=== PATIENT | female | born 1960 | race Caucasian/White ===

== ENCOUNTER 2023-12-05 05:35 | Inpatient (IN) | payer MEDICARE, SELFPAY ==
[2023-12-05] VITALS (9 sets, daily range): BP systolic 90–182; BP diastolic 53–107; PULSE 95–120; RESP 18–26; TEMP 36.2–36.8; O2SAT 93–100; BMI 26.4
--- NOTE | ~2023-12-05 | CT_ITS ---
EXAMINATION: CT ABDOMEN AND PELVIS WITHOUT CONTRAST CLINICAL INFORMATION: Vomiting. Abdominal discomfort. COMPARISON: None available. TECHNIQUE: Multidetector volumetric imaging was performed from the superior aspect of the liver through the pubic symphysis. Sagittal and coronal reformatted images were obtained on the technologist's workstation. Today's examination is limited secondary to motion artifact. This CT examination was performed using dose optimization techniques as appropriate, variously including the following: *Automated exposure control *Adjustment of mA and/or kV according to patient size (this includes techniques or standardized protocols for targeted exams where dose is matched to indication/reason for exam; i.e. extremities or head) *Use of iterative reconstruction technique DLP: 406 mGy-cm FINDINGS: Evaluation of lung bases is limited given respiratory motion artifact, however, atelectatic changes are appreciated. The liver is normal in size. The gallbladder is normal in appearance. The pancreas, spleen and adrenal glands are unremarkable. Symmetrically sized kidneys. No renal calculi or hydronephrosis of either kidney. Bilateral perinephric stranding, nonspecific. Small hiatal hernia. Normal caliber loops of small and large bowel. Colonic diverticulosis without CT evidence to suggest active diverticulitis. Normal caliber abdominal aorta demonstrating mild atherosclerotic disease. No retroperitoneal lymphadenopathy. The bladder is normal in appearance. Unremarkable CT appearance of the uterus. No gross free pelvic fluid. No inguinal lymphadenopathy. Diffuse osteopenia. Degenerative changes of the spine. Subcentimeter sclerotic focus within the left ilium, nonspecific but statistically a bone island. CT/CT abdomen pelvis wo IV con IMPRESSION: 1. No CT evidence for acute abnormality within the abdomen or pelvis. 2. Colonic diverticulosis without CT evidence to suggest active diverticulitis. Fleischner guidelines were followed.
--- NOTE | 2023-12-05 05:45 | ECG_ITS ---
Test Reason : ABD PAIN Blood Pressure : / mmHG Vent. Rate : 108 BPM Atrial Rate : 108 BPM P-R Int : 118 ms QRS Dur : 076 ms QT Int : 426 ms P-R-T Axes : 061 062 229 degrees QTc Int : 570 ms Sinus tachycardia Marked T wave abnormality, consider anterolateral ischemia Prolonged QT Abnormal ECG No previous ECGs available Referred By: Emily Angel Electronically Signed By:Giuseppe Parker
[2023-12-05] MEDS: 0.9 % Sodium Chloride 1,000 ML 999 ML IVCONT (05:58)
[2023-12-05] MEDS: ondansetron HCL 4 MG/2 ML VIAL IVPUSH (05:58)
[2023-12-05 06:01] LABS: Basophils Absolute Auto 0.1 X10*3/uL (0.0-0.2); Basophils Percent Auto 0.4 % (0-2); Hematocrit 31.7 % (37.0-47.0); Hemoglobin 11.1 g/dl (12.0-16.0); Imm Gran Abs Auto 0.12 X10*3/uL (0.00-0.03); Imm Gran Pct Auto 0.6 % (0.0-0.4); Lymphocytes Absolute Auto 1.6 X10*3/uL (1.2-4.9); Lymphocytes Percent Auto 7.4 % (20-40); MANUAL DIFF FLAG SCAN; Mean Corpuscular Hemoglobin 32.7 pg (27.0-33.0); Mean Corpuscular Volume 93.5 fL (80.0-98.0); Mean Platelet Volume 9.4 fL (9.4-12.3); Monocytes Absolute Auto 1.6 X10*3/uL (0.1-1.2); Monocytes Percent Auto 7.4 % (2-11); Neutrophils Absolute Auto 17.9 x10*3/uL (2.0-8.3); Neutrophils Percent Auto 84.2 % (45-73); Platelet Count 337 X10*3/uL (160-400); Red Blood Count 3.39 X10*6/uL (4.20-5.50); SCAN SMEAR FLAG 1; White Blood Count 21.2 X10*3/uL (4.8-10.8)
[2023-12-05 06:16] LABS: Alanine Aminotransferase 15 U/L (0-31); Albumin Level 4.4 g/dL (3.5-5.0); Alkaline Phosphatase 65 U/L (39-117); Anion Gap 21 (12-20); Aspartate Amino Transferase 33 U/L (5-31); Bilirubin Direct 0.3 mg/dL (0.0-0.5); Bilirubin Total 0.7 mg/dL (0.0-1.0); Blood Urea Nitrogen 45 mg/dL (9-16); Calcium 10.5 mg/dL (8.4-10.2); Carbon Dioxide 18 mmol/L (22-29); Chloride 95 mmol/L (96-108); Creatinine Clr Calc Pharmacy 17.5; Estimated Glomerular Filt Rate 18; Ethanol < 10 mg/dL; Glucose Random 142 mg/dL (60-115); Potassium 3.4 mmol/L (3.3-5.1); Sodium 131 mmol/L (135-145); Total Protein 7.8 g/dL (6.5-8.0)
[2023-12-05 06:17] LABS: SLIDE REVIEW VERIFIED
[2023-12-05] MEDS: LORazepam 2 MG/ML VIAL IVPUSH (06:26)
[2023-12-05] MEDS: Magnesium Sulfate/H2O 2 GM/50 ML PIGGYBACK IV (06:29)
--- NOTE | 2023-12-05 06:30 | ED_ITS ---
HPI - General Adult General Chief complaint: Nausea/Vomiting/Diarrhea Stated complaint: vomiting Time Seen by Provider: 12/05/23 06:25 Source: patient Mode of arrival: ambulatory Limitations: no limitations History of Present Illness HPI narrative: Patient comes to the emergency room complaining of alcohol withdrawal, nausea and vomiting. Patient states that her last drink was 4 days ago. Patient states that she usually drinks 2 bottles of wine at dinner time for the last 20 years. Patient states that for the last 4 days she has been vomiting, couple episodes of diarrhea, no significant abdominal pain. Patient states that yesterday around 22:00, she had some chest pressure which resolved by midnight. At this time, patient does not have chest pain or chest pressure. Patient denies abdominal pain. Patient complaining of feeling jittery, withdrawing from alcohol. Related Data Allergies Allergy/AdvReac Type Severity Reaction Status Date / Time amoxicillin [AMOXICILLIN] Allergy Unknown RASH Verified 12/05/23 06:40 doxycycline [DOXYCYCLINE] Allergy Unknown NAUSEA Verified 12/05/23 06:40 /VOMITING penicillin V Allergy Unknown facial Verified 12/05/23 06:40 edema Sulfa (Sulfonamide Allergy Unknown rash Verified 12/05/23 06:40 Antibiotics) sulfamethoxazole Allergy Unknown FACE Verified 12/05/23 06:40 [From BACTRIM] SWELLING trimethoprim [From BACTRIM] Allergy Unknown FACE Verified 12/05/23 06:40 SWELLING minocycline [Minocin] AdvReac Unknown GI Verified 12/05/23 06:40 upset/nausea Doxycycline Hyclate AdvReac Unknown GI Uncoded 04/13/13 00:00 upset/nausea Review of Systems 2 Review of Systems: Constitutional : No Weight loss, No Fever, No Chills, No Night Sweats, No Fatigue, No Malaise, complaining of feeling jittery ENT/Mouth : No Hearing loss, No Ear Pain, No Nasal Congestion, No Sinus Pain, No Hoarseness, No sore throat, No Rhinorrhea, No Swallowing Difficulty Eyes: No Eye Pain, No Swelling, No Redness, No Foreign Body, No Discharge, No Vision Changes Cardiovascular : No Chest Pain, No SOB, No Dyspnea on Exertion, No Orthopnea, No Edema, No Palpitations Respiratory : No Cough, No Sputum, No Wheezing, No Smoke Exposure, No Dyspnea Gastrointestinal : Complaining of nausea vomiting and diarrhea No Constipation, No abdominal Pain, No Hematochezia, No Melena Genitourinary : no irregular bleeding, No Dysuria, No Urinary Frequency, No Hematuria, No Urinary Incontinence, No Urgency, No Flank Pain, No Urinary Flow Changes, No Hesitancy Musculoskeletal : No joint pain, No Myalgias, No Joint Swelling Skin : No Skin Lesions, No rash Neuro : No Weakness, No Numbness, No Paresthesias, No Loss of Consciousness, No Dizziness, No Headache Psych : No Anxiety/Panic, No Depression, No SI/HI/AH/VH, complaining of alcohol withdrawal, last drink 4 days ago Heme/Lymph: No Bruising, No Bleeding,No Lymphadenopathy Endocrine : No Polyuria, No Polydipsia, No Temperature Intolerance [facility] Past Medical History Medical History Marijuana use Hypothyroidism Hyperlipidemia Hypertension Alcohol abuse Social History Social History Advance Directives: No Advance Directives Information Provided: Yes Physical Exam ED Vital Signs: Vital Signs - 24 hr 12/05/23 05:45 12/05/23 06:34 Temperature 98 F 98.2 F Pulse Rate 102 H 116 H Respiratory Rate 24 H 20 Blood Pressure 182/103 H 180/100 H Pulse Oximetry 100 93 Oxygen Delivery Method Room Air Room Air BMI result Body Mass Index 26.4 Const Other: Appearance: Alert. Oriented X3. No acute distress. Jittery, shaky, sober, coherent Eyes: Pupils equal, round and reactive to light. ENT: Pharynx normal. Neck: Normal inspection. Neck supple. No lymph nodes noted. No crepitus CVS: Normal heart rate and rhythm. Pulses normal. Normal S1 and S2 Respiratory: No respiratory distress. Breath sounds normal. No Wheezing. No rales Abdomen: Soft and nontender. No rigidity. No distention. Skin: Skin warm and dry. Normal skin color. Normal skin turgor. Extremities: No lower extremity edema. No Lacerations. No Rash Neuro: Oriented X 3. No motor deficit. No sensory deficit. Moving all extremities. No slurred speech. CN 2 through 12 grossly intact Psych: calm, cooperative, normal affect Course Course Course Narrative: -all of patient's labs pending -patient empirically being treated with IV fluids, Zofran, Ativan IV Medications Administered Generic Name Dose Route Start Last Admin Trade Name Freq PRN Reason Stop Dose Admin Magnesium Sulfate 2 gm in 50 mls @ 25 mls/hr 12/05/23 06:25 12/05/23 06:53 Magnesium Sulfate/H2o IV 12/05/23 08:24 Infused ONCE ONE Infusion Discontinued Medications Generic Name Dose Route Start Last Admin Trade Name [place] PRN Reason Stop Dose Admin Sodium Chloride 1,000 mls @ 999 mls/hr 12/05/23 05:45 12/05/23 06:53 Ns IVCONT 12/05/23 06:45 Infused .Q1H1M ONE Infusion Lorazepam 2 mg 12/05/23 06:13 12/05/23 06:26 Lorazepam 2 Mg/Ml Vial IVPUSH 12/05/23 06:14 2 mg ONCE ONE Administration Ondansetron HCl 4 mg 12/05/23 05:45 12/05/23 05:58 Ondansetron Hcl 4 Mg/2 Ml Vial IVPUSH 12/05/23 05:46 4 mg ONCE ONE Administration Medical Decision Making Medical Decision Making [facility] Narrative: -my interpretation of EKG: Sinus tachycardia, heart rate 108,, suspicious ST segment elevation of 1 mm in V2, deep wave inversions in lead II, III, V3 V4 V5 V6, QTC prolonged 570 -patient received IV magnesium 2 g -my interpretation of labs: Patient's white blood cell count is 21.2, patient a be anemic, hemoglobin 11.1. Patient has hyponatremia sodium 131, anion gap open 21, BUN 45, creatinine 2.61. Troponin 6814 -I discussed the EKG changes and the troponin with Dr. Parker, we will go ahead and start heparin. Patient's blood pressure is stable, patient states that she does not have any chest pain, shortness of breath, abdominal pain or reflux symptoms. -patient states that she has no abdominal pain at all, just discomfort from nausea. Given her elevated white blood cell count, we will go ahead and order a CT scan of the abdomen -I discussed the patient with Dr. Brown and the medicine team, patient being admitted -of note, patient was given IV Ativan 2 mg to help with the withdrawal symptoms and to prevent seizures. Patient is somnolent, does wake up answer questions and falls back asleep Differential Diagnosis Differential Diagnoses: The differential diagnosis associated with the presentation includes (Alcohol withdrawal, NSTEMI, STEMI, gastroenteritis) Admission/Observation Consideration of admission/observation: Escalation of care including admission/observation considered Consult Healthcare Provider Management of the patient was discussed with: Hospitalist and Deck Mate Lab Data MDM Lab Attestation statement: I reviewed the patient's lab results. 12/05/23 05:54 12/05/23 05:54 Labs: Lab Results 12/05/23 Range/Units 05:54 WBC 21.2 H (4.8-10.8) X10*3/uL RBC 3.39 L (4.20-5.50) X10*6/uL Hgb 11.1 L (12.0-16.0) g/dl Hct 31.7 L (37.0-47.0) % MCV 93.5 (80.0-98.0) fL MCH 32.7 (27.0-33.0) pg MCHC 35.0 (31.0-35.0) g/dl RDW 13.0 (11.0-16.0) % Plt Count 337 (160-400) X10*3/uL MPV 9.4 (9.4-12.3) fL Immature Gran % (Auto) 0.6 H (0.0-0.4) % Neut % (Auto) 84.2 H (45-73) % Lymph % (Auto) 7.4 L (20-40) % [place] % (Auto) 7.4 (2-11) % Eos % (Auto) 0.0 (0-4) % Baso % (Auto) 0.4 (0-2) % Lymph # (Auto) 1.6 (1.2-4.9) X10*3/uL [place] # (Auto) 1.6 H (0.1-1.2) X10*3/uL Eos # (Auto) 0.0 (0.0-0.4) X10*3/uL Baso # (Auto) 0.1 (0.0-0.2) X10*3/uL Abs Immat Gran (auto) 0.12 H (0.00-0.03) X10*3/uL Absolute Neuts (auto) 17.9 H (2.0-8.3) x10*3/uL Absolute Nucleated RBC 0.000 (0.0-0.012) X10*3/uL Nucleated RBC % (auto) 0.0 (0.0-0.2) /100WBC Smear Tech's Comments VERIFIED Sodium 131 L (135-145) mmol/L Potassium 3.4 (3.3-5.1) mmol/L Chloride 95 L (96-108) mmol/L Carbon Dioxide 18 L (22-29) mmol/L Anion Gap 21 H (12-20) BUN 45 H (9-16) mg/dL Creatinine 2.61 H (0.5-1.4) mg/dL Estim Creat Clear Calc 17.5 Estimated GFR 18 Random Glucose 142 H (60-115) mg/dL Calcium 10.5 H (8.4-10.2) mg/dL Total Bilirubin 0.7 (0.0-1.0) mg/dL Direct Bilirubin 0.3 (0.0-0.5) mg/dL AST 33 H (5-31) U/L ALT 15 (0-31) U/L Alkaline Phosphatase 65 (39-117) U/L Troponin I High Sens 6814.2 H* (<3.5-17.0) ng/L Total Protein 7.8 (6.5-8.0) g/dL Albumin 4.4 (3.5-5.0) g/dL Ethyl Alcohol < 10 mg/dL Influenza Type A (PCR) NEGATIVE (Negative) Influenza Type B (PCR) NEGATIVE (Negative) RSV RNA Qual (PCR) NEGATIVE (Negative) SARS-CoV-2 RNA (RT-PCR) NEGATIVE (Negative) Independent Interpretation I performed an independent interpretation of an: EKG Critical Care Time Critical Care Time Critical Care Time: Yes Total Critical Care Time: 90 Attestation: I have personally provided critical care time. Time includes review of lab data, radiology results, discussion with consultants, and monitoring for potential decompensation. Intervention performed as documented. Discharge Plan Discharge Clinical Impression: Non-ST elevation (NSTEMI) myocardial infarction, Alcohol withdrawal, Acute hyponatremia, ARAM (acute kidney injury) Patient Disposition: Admitted As Inpatient
[2023-12-05 06:36] LABS: Influenza A PCR NEGATIVE (Negative); Influenza B PCR NEGATIVE (Negative); Resp Syncy Virus RNA Qual PCR NEGATIVE (Negative); SARS COV2 PCR INHOUSE NEGATIVE (Negative)
[2023-12-05 07:06] LABS: Magnesium 1.2 mg/dL (1.6-2.6)
--- NOTE | 2023-12-05 07:34 | PC.NURSE ---
Assumed care of this patient at 0700, noted to be desatting on 3L oxymask to high 70's - low 80's with good pleth after recieving IV ativan. Provider made aware, switched to 15L nonrebreather with good effect, sating 90's. Patient drowsy but easily arousable to name. Heparin gtt ordered, waiting on ptt results.
[2023-12-05 07:43] LABS: INTERNATIONAL NORM RATIO 0.9 (0.9-1.1); Prothrombin Time 11.3 SEC (11.1-13.3)
[2023-12-05 07:46] LABS: Partial Thromboplastin Time 24.5 SEC (26.0-36.8)
--- NOTE | 2023-12-05 07:55 | P.HPHOSP_ITS ---
History of Present Illness Date of Service: 12/05/23 Chief Complaint: nausea and vomiting 63 year old women with a history of alcohol abuse presenting with several days of nausea and vomiting. She reports that she drinks 2 bottles of wine daily and hasn't had a drink since Thursday because of nausea and vomiting. She also had some episodes of nonbloody diarrhea with no significant abdominal pain. last night she reported several minutes of left sided non radiating chest pressure with some mild sob when taking in a deep breath. She denied fever, chills, recent travel, sick contacts, recent illness. In the ED, abd CT showed no evidence of acute abnormality, troponin 6814.2, repeat 3378.4. She was started on Iv heparin drip, given phenobarbitol for alcohol withdrawal, IV magnesium for mag of 1.2. seh will be admitted to Telemetry for further management and treatment of NSTEMI and alcohol withdrawal Review of Systems 2 Review of Systems: Denies any recent fever chills or decrease in appetite respiratory denies any shortness of breath or cough cardiovascular See HPI gastrointestinal See HPI genitourinary denies any dysuria frequency or hematuria musculoskeletal denies any joint pain or swelling neuropsych denies any weakness or seizures all other systems reviewed are negative PMFSH Medical History Marijuana use Hypothyroidism Hyperlipidemia Hypertension Alcohol abuse Social History (Updated 12/05/23 @ 15:38 by Nikki Farah NP) Alcohol intake: current Alcohol intake frequency: 0-2 drinks per day Alcohol type: wine Comment: 20 years, 2 bottles of wine per day Patient Tobacco Use Status: Never used Tobacco Meds Allergies Allergy/AdvReac Type Severity Reaction Status Date / Time amoxicillin [AMOXICILLIN] Allergy Unknown RASH Verified 12/05/23 06:40 doxycycline [DOXYCYCLINE] Allergy Unknown NAUSEA Verified 12/05/23 06:40 /VOMITING penicillin V Allergy Unknown facial Verified 12/05/23 06:40 edema Sulfa (Sulfonamide Allergy Unknown rash Verified 12/05/23 06:40 Antibiotics) sulfamethoxazole Allergy Unknown FACE Verified 12/05/23 06:40 [From BACTRIM] SWELLING trimethoprim [From BACTRIM] Allergy Unknown FACE Verified 12/05/23 06:40 SWELLING minocycline [Minocin] AdvReac Unknown GI Verified 12/05/23 06:40 upset/nausea Doxycycline Hyclate AdvReac Unknown GI Uncoded 04/13/13 00:00 upset/nausea Active Medications: Current Medications Acetaminophen (Acetaminophen 325 Mg Tablet) 650 mg PO Q6H PRN PRN Reason: Pain, Mild (Pain Scale 1-3) Folic Acid (Folic Acid 1 Mg Tablet) 1 mg PO DAILY [facility] Heparin Sodium (Porcine) (Heparin Sodium,Porcine 5,000 Unit/Ml Vial) 2,400 unit 40 unit/kg (2400 unit) IVPUSH PROTOCOL BOLUS PRN; Protocol PRN Reason: 40 unit/kg - Heparin Protocol Heparin Sodium (Porcine) (Heparin Sodium,Porcine 5,000 Unit/Ml Vial) 4,900 unit 80 unit/kg (4900 unit) IVPUSH PROTOCOL BOLUS PRN; Protocol PRN Reason: 80 unit/kg - Heparin Protocol Magnesium Sulfate (Magnesium Sulfate/H2o) 2 gm in 50 mls @ 25 mls/hr IV ONCE ONE Stop: 12/05/23 08:24 Last Infusion: 12/05/23 06:53 Dose: Infused Heparin Sodium/Sodium Chloride (Heparin Sodium,Porcine/1/2ns) 25,000 unit in 250 mls @ 0 mls/hr IVCONT .Q0M [facility]; Protocol Sodium Chloride (Ns) 1,000 mls @ 100 mls/hr IVCONT .Q10H [facility] Magnesium Oxide (Magnesium Oxide 400 Mg Tablet) [facility] Multivitamins/Vitamin C (Multivitamin Tablet) 1 tab PO DAILY [facility] Pharmacy Consult (Consult Rx Etoh Phenob Im/Po) 1 each MISCELLANE ONCE PRN; Protocol PRN Reason: Consult order Phenobarbital (Phenobarbital 30 Mg Tablet) 30 mg PO BID [facility]; Protocol Stop: 12/07/23 09:01 Phenobarbital (Phenobarbital 15 Mg Tablet) 15 mg PO BID [facility]; Protocol Stop: 12/09/23 09:01 Phenobarbital (Phenobarbital 15 Mg Tablet) 15 mg PO DAILY [facility]; Protocol Stop: 12/11/23 09:01 Phenobarbital Sodium (Phenobarbital Sodium 130 Mg/Ml Im Once) 220 mg IM ONCE ONE; Protocol Stop: 12/05/23 08:01 Phenobarbital Sodium (Phenobarbital Sodium 65 Mg/Ml Vial Q3hx2) 165 mg IM Q3H [facility]; Protocol Stop: 12/05/23 14:01 Sodium Chloride (0.9 % Sodium Chloride Flush 3 Ml Syringe) 3 ml IVFLUSH QSHIFT [facility] Thiamine HCl (Thiamine Hcl 100 Mg Tablet) 100 mg PO DAILY [facility] Home Medications Medication Instructions Recorded Confirmed Last Taken Type clotrimazole-betamethasone 1 1 appl topical TID 12/05/23 12/05/23 Unknown History %-0.05 % topical cream lisinopril 5 mg tablet 5 mg PO DAILY 12/05/23 12/05/23 Unknown History pravastatin 40 mg tablet 40 mg PO DAILY 12/05/23 12/05/23 Unknown History Physical Exam 2 Vital Signs and Narrative: Vital Signs: Last Vital Signs Temp 98.2 F 12/05/23 06:34 Pulse 116 H 12/05/23 06:34 Resp 20 12/05/23 06:34 BP 180/100 H 12/05/23 06:34 Pulse Ox 93 12/05/23 06:34 O2 Del Method Room Air 12/05/23 06:34 BMI result Body Mass Index 26.4 Results Labs 12/05/23 05:54 12/05/23 13:20 Labs: Laboratory Results - last 24 hr 12/05/23 12/05/23 05:54 07:23 MCV 93.5 MCH 32.7 MCHC 35.0 RDW 13.0 Plt Count 337 MPV 9.4 Immature Gran % (Auto) 0.6 H Neut % (Auto) 84.2 H Lymph % (Auto) 7.4 L [place] % (Auto) 7.4 Eos % (Auto) 0.0 Baso % (Auto) 0.4 Lymph # (Auto) 1.6 [place] # (Auto) 1.6 H Eos # (Auto) 0.0 Baso # (Auto) 0.1 Abs Immat Gran (auto) 0.12 H Absolute Neuts (auto) 17.9 H Absolute Nucleated RBC 0.000 Nucleated RBC % (auto) 0.0 Smear Tech's Comments VERIFIED PT 11.3 INR 0.9 APTT 24.5 L Anion Gap 21 H Estim Creat Clear Calc 17.5 Estimated GFR 18 Random Glucose 142 H Calcium 10.5 H Magnesium 1.2 L* Total Bilirubin 0.7 Direct Bilirubin 0.3 AST 33 H ALT 15 Alkaline Phosphatase 65 Troponin I High Sens 6814.2 H* Total Protein 7.8 Albumin 4.4 Ethyl Alcohol < 10 Influenza Type A (PCR) NEGATIVE Influenza Type B (PCR) NEGATIVE RSV RNA Qual (PCR) NEGATIVE SARS-CoV-2 RNA (RT-PCR) NEGATIVE Assessment and Plan (1) ARAM (acute kidney injury): Status: Acute (2) Non-ST elevation (NSTEMI) myocardial infarction: Status: Acute Plan 63 year old women admitted with Acute NSTEMI and alcohol withdrawal symptoms NSTEMI Started IV heparin asa, statin cardiology consultation> likely takotsubo, continue 48 hours of IV heparin, will likely need transfer to [facility] for cardiac catheterization monitor on telemetry Alcohol withdrawal Drinks 2 bottles of wine daily, last drink 4 days ago phenobarbitol protocol Folic acid, thiamine and MVI IV fluids ARAM secondary to ETOH, HTN, dehydration IV fluids nephrology consultation Hypomagnesemia secondary to alcohol use Replace with IV and po DVT prophylaxis with Heparin IV Full code Patient required least 48-72 hours for treatment of NSTEMI requiring IV heparin and specialty consultation. This could not be done at a lesser acute setting due to quick decompensation from alcohol withdrawal and NSTEMI. Quality Stroke Does the patient have a stroke diagnosis?: No VTE Prior VTE?: No VTE Risk Level:: Medical - moderate - high VTE Device Contraindication: Treatment Not Indicated VTE Drug Contraindication: N/A - Med Ordered
--- NOTE | 2023-12-05 07:59 | PHA.MEDREC ---
Pharmacy Consult ? Medication Reconciliation Pharmacy has completed the medication reconciliation. Spoke to spouse
[2023-12-05] MEDS: 0.9 % Sodium Chloride 1,000 ML 100 ML IVCONT ×2 (08:15→16:44)
[2023-12-05] MEDS: Folic Acid 1 MG TABLET PO (08:15)
[2023-12-05] MEDS: Multivitamin TABLET 1 TAB PO (08:15)
[2023-12-05] MEDS: Aspirin 81 MG TAB.CHEW PO (08:15)
[2023-12-05] MEDS: Magnesium Oxide 400 MG TABLET PO ×2 (08:15→16:43)
[2023-12-05] MEDS: Thiamine HCL 100 MG TABLET PO (08:15)
[2023-12-05] MEDS: Heparin Sodium,Porcine/1/2NS 25,000 UNIT/250 ML IV.SOLN 8.57 UNIT IVCONT (08:15)
[2023-12-05] MEDS: PHENobarbitaL sodium 130 MG/ML IM ONCE 220 MG IM (09:49)
--- NOTE | 2023-12-05 09:56 | PC.NURSE ---
Patient titrated down to 4L oxymask, sats 94%, IM phenobarb given.
--- NOTE | 2023-12-05 11:55 | P.CONCA_ITS ---
History of Present Illness History of Present Illness Date of Service: 12/05/23 Chief complaint: NSTEMI, ETOH withdrawal Narrative: [age] year female with history of alcoholism for many years presenting with vomiting and atypical chest pain. She has been getting vomiting every week lasting for a couple of days. She had a bad episode for the last 3 days and came to the emergency department. Also had left-sided pleuritic chest pain lasting for short period. She ruled in for NSTEMI. EKG showed diffuse T-wave inversions with QT prolongation. She was started on a heparin drip. She is denying any chest discomfort shortness of breath. No abdominal pain. She is saying her nausea is somewhat better right now. I did a bedside echocardiogram myself and she has changes consistent with takotsubo cardiomyopathy. This basal hyperkinesis and mid to distal LV is hypokinetic with EF 25-30%. She is quite tachycardic currently which could be due to cardiomyopathy versus alcohol withdrawal. [facility] Past Medical History Medical History Marijuana use Hypothyroidism Hyperlipidemia Hypertension Alcohol abuse Social History Social History Alcohol intake: current Alcohol intake frequency: 0-2 drinks per day Alcohol type: wine Patient Tobacco Use Status: Never used Tobacco Smoked in Last 30 Days: No Use of substances other than those prescribed or required for medical reasons: No Advance Directives: No Advance Directives Information Provided: Yes Meds Allergies Allergy/AdvReac Type Severity Reaction Status Date / Time amoxicillin [AMOXICILLIN] Allergy Unknown RASH Verified 12/05/23 06:40 doxycycline [DOXYCYCLINE] Allergy Unknown NAUSEA Verified 12/05/23 06:40 /VOMITING penicillin V Allergy Unknown facial Verified 12/05/23 06:40 edema Sulfa (Sulfonamide Allergy Unknown rash Verified 12/05/23 06:40 Antibiotics) sulfamethoxazole Allergy Unknown FACE Verified 12/05/23 06:40 [From BACTRIM] SWELLING trimethoprim [From BACTRIM] Allergy Unknown FACE Verified 12/05/23 06:40 SWELLING minocycline [Minocin] AdvReac Unknown GI Verified 12/05/23 06:40 upset/nausea Doxycycline Hyclate AdvReac Unknown GI Uncoded 04/13/13 00:00 upset/nausea Active Medications: Current Medications Acetaminophen (Acetaminophen 325 Mg Tablet) 650 mg PO Q6H PRN PRN Reason: Pain, Mild (Pain Scale 1-3) Aspirin (Aspirin 81 Mg Tab.Chew) 81 mg PO DAILY [facility] Last Admin: 12/05/23 08:15 Dose: 81 mg Atorvastatin Calcium (Atorvastatin Calcium 40 Mg Tablet) 40 mg PO BEDTIME [facility] Folic Acid (Folic Acid 1 Mg Tablet) 1 mg PO DAILY [facility] Last Admin: 12/05/23 08:15 Dose: 1 mg Heparin Sodium (Porcine) (Heparin Sodium,Porcine 5,000 Unit/Ml Vial) 2,400 unit 40 unit/kg (2400 unit) IVPUSH PROTOCOL BOLUS PRN; Protocol PRN Reason: 40 unit/kg - Heparin Protocol Heparin Sodium (Porcine) (Heparin Sodium,Porcine 5,000 Unit/Ml Vial) 4,900 unit 80 unit/kg (4900 unit) IVPUSH PROTOCOL BOLUS PRN; Protocol PRN Reason: 80 unit/kg - Heparin Protocol Heparin Sodium/Sodium Chloride (Heparin Sodium,Porcine/1/2ns) 25,000 unit in 250 mls @ 0 mls/hr IVCONT .Q0M [facility]; Protocol Last Admin: 12/05/23 08:15 Dose: 14 units/kg/hr, 8.57 mls/hr Sodium Chloride (Ns) 1,000 mls @ 100 mls/hr IVCONT .Q10H [facility] Last Admin: 12/05/23 08:15 Dose: 100 mls/hr Magn[facility] ([facility] 400 Mg [facility] Last Admin: 12/05/23 08:15 Dose: 400 mg Multivitamins/Vitamin C (Multivitamin Tablet) 1 tab PO DAILY [facility] Last Admin: 12/05/23 08:15 Dose: 1 tab Pharmacy Consult (Consult Rx Etoh Phenob Im/Po) 1 each MISCELLANE ONCE PRN; Protocol PRN Reason: Consult order Phenobarbital (Phenobarbital 30 Mg Tablet) 30 mg PO BID [facility]; Protocol Stop: 12/07/23 09:01 Phenobarbital (Phenobarbital 15 Mg Tablet) 15 mg PO BID [facility]; Protocol Stop: 12/09/23 09:01 Phenobarbital (Phenobarbital 15 Mg Tablet) 15 mg PO DAILY [facility]; Protocol Stop: 12/11/23 09:01 Phenobarbital Sodium (Phenobarbital Sodium 65 Mg/Ml Vial Q3hx2) 165 mg IM Q3H [facility]; Protocol Stop: 12/05/23 14:01 Sodium Chloride (0.9 % Sodium Chloride Flush 3 Ml Syringe) 3 ml IVFLUSH QSHIFT [facility] Last Admin: 12/05/23 08:30 Dose: Not Given Thiamine HCl (Thiamine Hcl 100 Mg Tablet) 100 mg PO DAILY [facility] Last Admin: 12/05/23 08:15 Dose: 100 mg Home Medications Medication Instructions Recorded Confirmed Last Taken Type clotrimazole-betamethasone 1 1 appl topical TID 12/05/23 12/05/23 Unknown History %-0.05 % topical cream lisinopril 5 mg tablet 5 mg PO DAILY 12/05/23 12/05/23 Unknown History pravastatin 40 mg tablet 40 mg PO DAILY 12/05/23 12/05/23 Unknown History Physical Exam 2 Vital Signs: Vital Signs: Last Vital Signs Temp 98.2 F 12/05/23 06:34 Pulse 120 H 12/05/23 10:08 Resp 22 H 12/05/23 10:08 BP 154/88 H 12/05/23 10:08 Pulse Ox 93 12/05/23 10:08 O2 Del Method Oxymask 12/05/23 10:08 O2 Flow Rate 4 12/05/23 10:08 BMI result Body Mass Index 26.4 GENERAL APPEARANCE: in no acute distress. NECK: no carotid bruit, no jugular venous distention. SKIN: no suspicious lesions, warm and dry. HEART: no murmurs, regular rate and rhythm. Tachycardic. LUNGS: clear to auscultation bilaterally. ABDOMEN: soft, nontender. EXTREMITIES: no edema. PERIPHERAL PULSES: equal. NEUROLOGIC: No gross deficits, AAO X 3 Objective Labs and Meds 12/05/23 05:54 12/05/23 05:54 Lab results: Laboratory Results - last 24 hr 12/05/23 12/05/23 12/05/23 05:54 07:23 08:21 WBC 21.2 H RBC 3.39 L Hgb 11.1 L Hct 31.7 L MCV 93.5 MCH 32.7 MCHC 35.0 RDW 13.0 Plt Count 337 MPV 9.4 Immature Gran % (Auto) 0.6 H Neut % (Auto) 84.2 H Lymph % (Auto) 7.4 L [place] % (Auto) 7.4 Eos % (Auto) 0.0 Baso % (Auto) 0.4 Lymph # (Auto) 1.6 [place] # (Auto) 1.6 H Eos # (Auto) 0.0 Baso # (Auto) 0.1 Abs Immat Gran (auto) 0.12 H Absolute Neuts (auto) 17.9 H Absolute Nucleated RBC 0.000 Nucleated RBC % (auto) 0.0 Smear Tech's Comments VERIFIED PT 11.3 INR 0.9 APTT 24.5 L Sodium 131 L Potassium 3.4 Chloride 95 L Carbon Dioxide 18 L Anion Gap 21 H BUN 45 H Creatinine 2.61 H Estim Creat Clear Calc 17.5 Estimated GFR 18 Random Glucose 142 H Calcium 10.5 H Magnesium 1.2 L* Total Bilirubin 0.7 Direct Bilirubin 0.3 AST 33 H ALT 15 Alkaline Phosphatase 65 Troponin I High Sens 6814.2 H* 3378.4 H* D Total Protein 7.8 Albumin 4.4 Ethyl Alcohol < 10 Influenza Type A (PCR) NEGATIVE Influenza Type B (PCR) NEGATIVE RSV RNA Qual (PCR) NEGATIVE SARS-CoV-2 RNA (RT-PCR) NEGATIVE Imaging Radiologist's impression: Impressions Abdomen/Pelvis CT 12/05/23 07:[address]: 1[address] evidence for acute abnormality within the abdomen or pelvis. 2. Colonic diverticulosis without CT evidence to suggest active diverticulitis. Fleischner guidelines were followed. Assessment and Plan (1) Non-ST elevation (NSTEMI) myocardial infarction: Status: Acute (2) Cardiomyopathy: Status: Acute (3) Alcohol withdrawal: Status: Acute Plan 63 year female presenting for vomiting and noncardiac chest pain. She ruled in for NSTEMI. She has diffuse T-wave inversions with wide based T-waves. Echocardiography is showing takotsubo cardiomyopathy. Biomarkers are trending down. Would favor giving her heparin for 48 hours. Creatinine is high and she is in alcohol withdrawal so not ready for any diagnostic cardiac catheterization but we may have to consider that depending on improvement in her kidney function and withdrawal. Would not give her any beta-marc or calcium channel blockers Cardizem/verapamil. Would favor giving her some clonidine for alcohol withdrawal which may help with the heart rate also. Please start her on 0.1 mg twice a day. Continue heparin drip for 48 hours. She has history of Schatzki's ring and esophageal issues. Would favor baby aspirin for now till we have clarity about underlying coronary anatomy although echocardiography is quite obvious and point short takotsubo as the likely diagnosis. Explained the details with the patient. She is interested in alcohol detox. Thank you for allowing me to participate in the care of your patient. Please feel free to contact me if you have any questions. Procedures Date of Service Date of Service: 12/05/23
[2023-12-05] MEDS: cloNIDine HCL 0.1 MG TABLET PO (12:40)
[2023-12-05] MEDS: PHENobarbitaL sodium 65 MG/ML VIAL Q3Hx2 165 MG IM ×2 (12:40→14:30)
[2023-12-05 13:49] LABS: Anion Gap 15 (12-20); Blood Urea Nitrogen 42 mg/dL (9-16); Calcium 8.9 mg/dL (8.4-10.2); Carbon Dioxide 20 mmol/L (22-29); Chloride 103 mmol/L (96-108); Creatinine Clr Calc Pharmacy 23.9; Estimated Glomerular Filt Rate 26; Glucose Random 118 mg/dL (60-115); Magnesium 1.7 mg/dL (1.6-2.6); Potassium 4.3 mmol/L (3.3-5.1); Sodium 134 mmol/L (135-145)
[2023-12-05] MEDS: Heparin Sodium,Porcine 5,000 UNIT/ML VIAL 2400 UNIT IVPUSH (14:30)
[2023-12-05 16:36] LABS: Appearance Urine Clear; Color Urine Yellow; Glucose Urine UA 100 mg/dL (Negative); Leukocyte Esterase Urine Small (1+) (Negative); Nitrite Urine Negative (Negative); PH 5.5 (5.0-9.0); UMIC TRIGGER UACC YES; Urine Blood Negative (Negative); Urine Ketones 15 mg/dL (Negative); Urine Protein 300 (3+) mg/dL (Neg-Trace)
[2023-12-05 17:16] LABS: Bacteria Urine None Seen (None Seen); RBC Urine 0-2 /HPF (0-2); UACC Culture Trigger YES; WBC Urine 0-5 /HPF (0-5)
[2023-12-05 20:01] LABS: PTT Heparin Drip 85.6 SEC (53-77.9)
[2023-12-05] MEDS: Albumin Human 25 % 100 ML IV ×2 (20:31→22:06)
--- NOTE | 2023-12-05 23:17 | PM.EVENT ---
Event Note Date of Service: 12/05/23 Event Note: Consulted for ARAM. Has acute kidney injury due to tubular injury. NO reason to suspect obstructive uropathy, AIN or GN. Continue current supportive care for now. At risk for contrast nephropathy now. Can have IV contrast now if there are any life threatening issues. No ACEI/ARB. C/W rest of current supportive care for now. Shall closely F/U
[2023-12-06 02:51] LABS: PTT Heparin Drip 73.1 SEC (53-77.9)
[2023-12-06 03:33] VITALS: BP 103/65; PULSE 95; RESP 20; TEMP 37.3; O2SAT 98
[2023-12-06] MEDS: 0.9 % Sodium Chloride 1,000 ML 100 ML IVCONT (05:28)
--- NOTE | 2023-12-06 07:00 | ECG_ITS ---
Test Reason : NSTEMI Blood Pressure : / mmHG Vent. Rate : 100 BPM Atrial Rate : 100 BPM P-R Int : 114 ms QRS Dur : 086 ms QT Int : 440 ms P-R-T Axes : 041 040 182 degrees QTc Int : 567 ms Normal sinus rhythm T wave abnormality, consider inferior ischemia T wave abnormality, consider anterolateral ischemia Prolonged QT Abnormal ECG When compared with ECG of 05-DEC-2023 06:15, No significant change was found Referred By: Giuseppe Parker Electronically Signed By:Giuseppe Parker
[2023-12-06 07:15] LABS: Hematocrit 23.1 % (37.0-47.0); Hemoglobin 7.7 g/dl (12.0-16.0); Mean Corpuscular HGB Conc 33.3 g/dl (31.0-35.0); Mean Corpuscular Hemoglobin 32.8 pg (27.0-33.0); Mean Corpuscular Volume 98.3 fL (80.0-98.0); Mean Platelet Volume 10.2 fL (9.4-12.3); Platelet Count 183 X10*3/uL (160-400); Red Blood Count 2.35 X10*6/uL (4.20-5.50); Red Cell Distribution Width 13.2 % (11.0-16.0)
[2023-12-06 07:55] VITALS: BP 145/95; PULSE 120; RESP 20; TEMP 36.8; O2SAT 100
--- NOTE | 2023-12-06 08:17 | P.PNIM_ITS ---
Subjective Subjective Date of Service: 12/06/23 Review of Systems Follow up pna dry cough feeling better Physical Exam 2 Vital Signs: Vital Signs: Last Vital Signs Temp 98.3 F 12/06/23 07:55 Pulse 120 H 12/06/23 07:55 Resp 20 12/06/23 07:55 BP 145/95 H 12/06/23 07:55 Pulse Ox 100 12/06/23 07:55 O2 Del Method Nasal Cannula 12/06/23 07:55 O2 Flow Rate 1 12/06/23 03:33 BMI result Body Mass Index 26.4 Appearing in no acute distress lung sounds are clear to auscultation heart regular rate rhythm, clear S1, S2 positive bowel sounds, abdomen is soft, nontender neuro patient is alert x3, no focal deficits Objective Data Active Medications Acetaminophen (Acetaminophen 325 Mg Tablet) 650 mg PO Q6H PRN PRN Reason: Pain, Mild (Pain Scale 1-3) Aspirin (Aspirin 81 Mg Tab.Chew) 81 mg PO DAILY [facility] Last Admin: 12/05/23 08:15 Dose: 81 mg Documented By: JESUS Atorvastatin Calcium (Atorvastatin Calcium 40 Mg Tablet) 40 mg PO BEDTIME [facility] Last Admin: 12/05/23 20:53 Dose: Not Given Documented By: SOFIYA Non-Admin Reason: hold [per Clonidine HCl (Clonidine Hcl 0.1 Mg Tablet) 0.1 mg PO BID [facility]; Protocol Last Admin: 12/05/23 20:53 Dose: Not Given Documented By: SOFIYA Non-Admin Reason: systolic less than 90 Folic Acid (Folic Acid 1 Mg Tablet) 1 mg PO DAILY [facility] Last Admin: 12/05/23 08:15 Dose: 1 mg Documented By: JESUS Heparin Sodium (Porcine) (Heparin Sodium,Porcine 5,000 Unit/Ml Vial) 2,400 unit 40 unit/kg (2400 unit) IVPUSH PROTOCOL BOLUS PRN; Protocol PRN Reason: 40 unit/kg - Heparin Protocol Last Admin: 12/05/23 14:30 Dose: 2,400 unit Documented By: JESUS Heparin Sodium (Porcine) (Heparin Sodium,Porcine 5,000 Unit/Ml Vial) 4,900 unit 80 unit/kg (4900 unit) IVPUSH PROTOCOL BOLUS PRN; Protocol PRN Reason: 80 unit/kg - Heparin Protocol Heparin Sodium/Sodium Chloride (Heparin Sodium,Porcine/1/2ns) 25,000 unit in 250 mls @ 0 mls/hr IVCONT .Q0M [facility]; Protocol Last Titration: 12/06/23 02:53 Dose: 14 units/kg/hr, 8.57 mls/hr Documented By: SOFIYA Co-signed By: MARCO ANTONIO Sodium Chloride (Ns) 1,000 mls @ 100 mls/hr IVCONT .Q10H [facility] Last Admin: 12/06/23 05:28 Dose: 100 mls/hr Documented By: SOFIYA Magnesium Oxide (Magnesium Oxide 400 Mg Tablet) 400 mg PO BIDPC [facility] Last Admin: 12/05/23 16:43 Dose: 400 mg Documented By: ROCÍO Multivitamins/Vitamin C (Multivitamin Tablet) 1 tab PO DAILY [facility] Last Admin: 12/05/23 08:15 Dose: 1 tab Documented By: JESUS Pharmacy Consult (Consult Rx Etoh Phenob Im/Po) 1 each MISCELLANE ONCE PRN; Protocol PRN Reason: Consult order Phenobarbital (Phenobarbital 30 Mg Tablet) 30 mg PO BID [facility]; Protocol Stop: 12/07/23 09:01 Last Admin: 12/05/23 20:53 Dose: Not Given Documented By: SOFIYA Non-Admin Reason: systolic less than 90 Phenobarbital (Phenobarbital 15 Mg Tablet) 15 mg PO BID [facility]; Protocol Stop: 12/09/23 09:01 Phenobarbital (Phenobarbital 15 Mg Tablet) 15 mg PO DAILY [facility]; Protocol Stop: 12/11/23 09:01 Sodium Chloride (0.9 % Sodium Chloride Flush 3 Ml Syringe) 3 ml IVFLUSH QSHIFT [facility] Last Admin: 12/06/23 01:38 Dose: Not Given Documented By: SOFIYA Non-Admin Reason: IV Running Thiamine HCl (Thiamine Hcl 100 Mg Tablet) 100 mg PO DAILY [facility] Last Admin: 12/05/23 08:15 Dose: 100 mg Documented By: JESUS Labs 12/06/23 06:26 12/05/23 13:20 Labs: Laboratory Results - last 24 hr 12/05/23 12/05/23 12/05/23 08:21 13:20 16:05 MCV MCH MCHC RDW Plt Count MPV Absolute Nucleated RBC Nucleated RBC % (auto) Hold Purple Top SEE NOTE aPTT Heparin Protocol 42.0 L Anion Gap 15 Estim Creat Clear Calc 23.9 Estimated GFR 26 Random Glucose 118 H Calcium 8.9 D Magnesium 1.7 Troponin I High Sens 3378.4 H* D Urine Color Yellow Urine Appearance Clear Urine pH 5.5 Ur Specific [place] 1.020 Urine Protein 300 (3+) H Urine Glucose (UA) 100 H Urine Ketones 15 Urine Blood Negative Urine Nitrite Negative Ur Leukocyte Esterase Small (1+) H Urine RBC 0-2 Urine WBC 0-5 Ur Squamous Epith Cells 3-5 Urine Bacteria None Seen Hyaline Casts 11-20 12/05/23 12/06/23 12/06/23 19:25 02:31 06:26 MCV 98.3 H MCH 32.8 MCHC 33.3 RDW 13.2 Plt Count 183 D MPV 10.2 Absolute Nucleated RBC 0.000 Nucleated RBC % (auto) 0.0 Hold Purple Top aPTT Heparin Protocol 85.6 H D 73.1 Anion Gap Estim Creat Clear Calc Estimated GFR Random Glucose Calcium Magnesium Troponin I High Sens Urine Color Urine Appearance Urine pH Ur Specific [place] Urine Protein Urine Glucose (UA) Urine Ketones Urine Blood Urine Nitrite Ur Leukocyte Esterase Urine RBC Urine WBC Ur Squamous Epith Cells Urine Bacteria Hyaline Casts Assessment and Plan (1) Cardiomyopathy: Status: Acute Plan 63 year old women admitted with Acute NSTEMI and alcohol withdrawal symptoms NSTEMI continue IV heparin asa, statin cardiology consultation> likely takotsubo, continue 48 hours of IV heparin, will likely need transfer to [facility] for cardiac catheterization monitor on telemetry Alcohol withdrawal Drinks 2 bottles of wine daily, last drink 4 days ago continue phenobarbitol protocol Folic acid, thiamine and MVI IV fluids ARAM creat trending down secondary to ETOH, HTN, dehydration IV fluids nephrology consultation pending Hypomagnesemia, resolved secondary to alcohol use Replace with IV and po DVT prophylaxis with Heparin IV Attending Dr. Rodrigues Full code continue hospital stay for treatment of NSTEMI requiring IV heparin and specialty consultation. This could not be done at a lesser acute setting due to quick decompensation from alcohol withdrawal and NSTEMI. Quality Stroke Does the patient have a stroke diagnosis?: No VTE Prior VTE?: No VTE Risk Level:: Medical - moderate - high VTE Device Contraindication: Treatment Not Indicated VTE Drug Contraindication: N/A - Med Ordered
[2023-12-06] MEDS: Folic Acid 1 MG TABLET PO (08:44)
[2023-12-06] MEDS: cloNIDine HCL 0.1 MG TABLET PO ×2 (08:44→23:27)
[2023-12-06] MEDS: Aspirin 81 MG TAB.CHEW PO (08:45)
[2023-12-06] MEDS: Multivitamin TABLET 1 TAB PO (08:46)
[2023-12-06] MEDS: Thiamine HCL 100 MG TABLET PO (08:46)
[2023-12-06] MEDS: Magnesium Oxide 400 MG TABLET PO ×2 (08:46→17:38)
[2023-12-06] MEDS: 0.9 % Sodium Chloride Flush 3 ML SYRINGE IVFLUSH ×2 (08:55→23:30)
[2023-12-06 09:27] LABS: PTT Heparin Drip 42.3 SEC (53-77.9)
[2023-12-06] MEDS: Heparin Sodium,Porcine 5,000 UNIT/ML VIAL 2400 UNIT IVPUSH ×2 (09:40→20:16)
[2023-12-06 09:50] LABS: Hematocrit 22.4 % (37.0-47.0); Hemoglobin 7.6 g/dl (12.0-16.0)
--- NOTE | 2023-12-06 09:58 | MHC.CM.PN ---
CM met with Patient and her /HCP/Nabeel at bedside and addressed IMM with Patient; original given to Patient and a copy has been placed on the chart. CM assisted Patient with the completion of a HCP(on file). Patient lives in a house with her and states that she may be transferred to [facility]. CM has initiated and will follow for dc planning. No prior services nor DME [employer] was necessary. PCP listed/Dr. Mona Gallegos is no longer with the practice but Patient has remained with the same practice she just cannot recall the name of the new PCP.If Patient is dc'd to home, her Son will transport.
--- NOTE | 2023-12-06 10:43 | PM.PNCARD ---
Subjective Subjective Date of Service: 12/06/23 Interval history: Seen examined at bedside. She is feeling better. No chest discomfort abdominal discomfort currently. She has tachycardia and hypertension due to alcohol withdrawal. She was started on clonidine yesterday for withdrawal. Physical Exam Vital Signs: Last Vital Signs Temp 98.3 F 12/06/23 07:55 Pulse 120 H 12/06/23 07:55 Resp 20 12/06/23 07:55 BP 145/95 H 12/06/23 07:55 Pulse Ox 100 12/06/23 07:55 O2 Del Method Nasal Cannula 12/06/23 07:55 O2 Flow Rate 1 12/06/23 03:33 BMI result Body Mass Index 26.4 GENERAL APPEARANCE: in no acute distress. NECK: no carotid bruit, no jugular venous distention. SKIN: no suspicious lesions, warm and dry. HEART: no murmurs, regular rate and rhythm. Tachycardic. LUNGS: clear to auscultation bilaterally. ABDOMEN: soft, nontender. EXTREMITIES: no edema. PERIPHERAL PULSES: equal. NEUROLOGIC: No gross deficits, AAO X 3 Objective Labs and Meds 12/06/23 08:53 12/05/23 13:20 Lab results: Laboratory Results - last 24 hr 12/05/23 12/05/23 12/05/23 13:20 16:05 19:25 WBC RBC Hgb Hct MCV MCH MCHC RDW Plt Count MPV Absolute Nucleated RBC Nucleated RBC % (auto) Hold Purple Top SEE NOTE aPTT Heparin Protocol 42.0 L 85.6 H D Sodium 134 L Potassium 4.3 D Chloride 103 Carbon Dioxide 20 L Anion Gap 15 BUN 42 H Creatinine 1.92 H Estim Creat Clear Calc 23.9 Estimated GFR 26 Random Glucose 118 H Calcium 8.9 D Magnesium 1.7 Urine Color Yellow Urine Appearance Clear Urine pH 5.5 Ur Specific [place] 1.020 Urine Protein 300 (3+) H Urine Glucose (UA) 100 H Urine Ketones 15 Urine Blood Negative Urine Nitrite Negative Ur Leukocyte Esterase Small (1+) H Urine RBC 0-2 Urine WBC 0-5 Ur Squamous Epith Cells 3-5 Urine Bacteria None Seen Hyaline Casts 11-20 12/06/23 12/06/23 12/06/23 02:31 06:26 08:53 WBC 6.0 RBC 2.35 L D Hgb 7.7 L D 7.6 L Hct 23.1 L D 22.4 L MCV 98.3 H MCH 32.8 MCHC 33.3 RDW 13.2 Plt Count 183 D MPV 10.2 Absolute Nucleated RBC 0.000 Nucleated RBC % (auto) 0.0 Hold Purple Top SEE NOTE aPTT Heparin Protocol 73.1 42.3 L D Sodium Potassium Chloride Carbon Dioxide Anion Gap BUN Creatinine Estim Creat Clear Calc Estimated GFR Random Glucose Calcium Magnesium Urine Color Urine Appearance Urine pH Ur Specific [place] Urine Protein Urine Glucose (UA) Urine Ketones Urine Blood Urine Nitrite Ur Leukocyte Esterase Urine RBC Urine WBC Ur Squamous Epith Cells Urine Bacteria Hyaline Casts Progress Note: A&P Assessment and plan (1) Cardiomyopathy: Status: Acute (2) Non-ST elevation (NSTEMI) myocardial infarction: Status: Acute (3) Anemia: Status: Acute Plan [age] year female presenting with vomiting ongoing for 3 days on background of chronic alcoholism. She had diffuse T-wave inversions with prolonged QT interval. Biomarkers were elevated and she ruled in for NSTEMI. Echocardiography has shown clear changes consistent with takotsubo cardiomyopathy. I scanned her myself and we will do a formal echocardiogram tomorrow get more information. She has chronic anemia and is possible that the initial hemoglobin of 11 was just hemo concentration and now we are seeing her real hemoglobin of 7.6-7.7. She should have iron studies and further workup for anemia. Would favor stopping heparin drip currently. She had acute kidney injury which is recovering. Decision about diagnostic angiogram is still unclear as there are consequences of giving her contrast at this time specially with a kidney injury. Also at least by echocardiography and her presentation/EKG it appears that she has takotsubo cardiomyopathy. Treatment for alcohol withdrawal as per medicine team. We will follow along with you. Thank you for allowing me to participate in the care of your patient. Please feel free to contact me if you have any questions. Time Spent With Patient Time: Total time managing care of this patient today ____ minutes. Progress Note: Quality Stroke Does the patient have a stroke diagnosis?: No Procedures Date of Service Date of Service: 12/06/23
--- NOTE | 2023-12-06 10:45 | PM.GICN ---
History of Present Illness Data of Consult Service Date: 12/06/23 Requesting physician: Nikki Farah Primary Care Provider: Mona Gallegos MD HPI Reason for consult: anemia 63 year old female with a history of alcohol abuse, breast cancer and HTN who I am seeing for anemia Patient normally drinks 2 bottles of wine daily but then stopped 4-5 d before admission due to non bloody nausea and vomiting and diarrhea. She then developed left sided non radiating chest pressure with some mild sob for a few hours which has now gone but denied fever, chills. She denies abdominal pain, no reflux or dysphagia, no melena or rectal bleeding, nose bleeds. Admits he has had issues with alcohol for maybe 30 years or so but recently has gotten worse Labs revealed elevated troponin with abn ECG with inferolateral T wave inversions. Seen by cardiology and dx with melissa trimble hGB on admission was 11 g/dl but now 8 g/dl --has been on heparin , troponin is coming down She says she has chronic anemia and is on b12 supplement but she does not know what the baseline is. she had egd and colonoscopy in the past, possibly had gastritis Review of Systems Review of Systems: Constitutional : No Weight loss, No Fever, No Chills ENT/Mouth : No sore throat, No Rhinorrhea Eyes: No Swelling, No Redness Cardiovascular : No Chest Pain, No SOB, No Edema Respiratory : No Cough, No Sputum, No Wheezing Gastrointestinal : see HPI Genitourinary : NO Dysuria, No Urinary Frequency, No Hematuria, No Urgency Musculoskeletal : + joint pain, No Myalgias, No Joint Swelling Skin : No Skin Lesions, No rash Neuro : No Weakness, No Numbness, No Dizziness, No Headache Psych : No Anxiety/Panic, No Depression Heme/Lymph: No Bruising, No Lymphadenopathy Endocrine : No Polyuria, No Polydipsia All other systems reviewed and are negative. COUNTS INCLUDE 234 BEDS AT THE [facility] Past Medical History Medical History Marijuana use Hypothyroidism Hyperlipidemia Hypertension Alcohol abuse Family History Pertinent family history: no FH of colon cancer, stomach ulcers Social History Social History (Updated 12/05/23 @ 15:38 by Nikki Farah NP) Household Members: Spouse Housing: House Do you presently have visiting nurse or other home services: No Alcohol intake: current Alcohol intake frequency: 0-2 drinks per day Alcohol type: wine Comment: 20 years, 2 bottles of wine per day Patient Tobacco Use Status: Never used Tobacco Second Hand Smoke Exposure: No Substance Use Type: Marijuana service: No Meds Allergies Allergy/AdvReac Type Severity Reaction Status Date / Time amoxicillin [AMOXICILLIN] Allergy Unknown RASH Verified 12/05/23 06:40 doxycycline [DOXYCYCLINE] Allergy Unknown NAUSEA Verified 12/05/23 06:40 /VOMITING penicillin V Allergy Unknown facial Verified 12/05/23 06:40 edema Sulfa (Sulfonamide Allergy Unknown rash Verified 12/05/23 06:40 Antibiotics) sulfamethoxazole Allergy Unknown FACE Verified 12/05/23 06:40 [From BACTRIM] SWELLING trimethoprim [From BACTRIM] Allergy Unknown FACE Verified 12/05/23 06:40 SWELLING minocycline [Minocin] AdvReac Unknown GI Verified 12/05/23 06:40 upset/nausea Doxycycline Hyclate AdvReac Unknown GI Uncoded 04/13/13 00:00 upset/nausea Active Medications: Current Medications Acetaminophen (Acetaminophen 325 Mg Tablet) 650 mg PO Q6H PRN PRN Reason: Pain, Mild (Pain Scale 1-3) Aspirin (Aspirin 81 Mg Tab.Chew) 81 mg PO DAILY [facility] Last Admin: 12/06/23 08:45 Dose: 81 mg Atorvastatin Calcium (Atorvastatin Calcium 40 Mg Tablet) 40 mg PO BEDTIME [facility] Last Admin: 12/05/23 20:53 Dose: Not Given Clonidine HCl (Clonidine Hcl 0.1 Mg Tablet) 0.1 mg PO BID [facility]; Protocol Last Admin: 12/06/23 08:44 Dose: 0.1 mg Folic Acid (Folic Acid 1 Mg Tablet) 1 mg PO DAILY [facility] Last Admin: 12/06/23 08:44 Dose: 1 mg Sodium Chloride (Ns) 1,000 mls @ 100 mls/hr IVCONT .Q10H [facility] Last Admin: 12/06/23 05:28 Dose: 100 mls/hr [facility] ([facility] 400 Mg [facility] Last Admin: 12/06/23 08:46 Dose: 400 mg Multivitamins/Vitamin C (Multivitamin Tablet) 1 tab PO DAILY [facility] Last Admin: 12/06/23 08:46 Dose: 1 tab Pharmacy Consult (Consult Rx Etoh Phenob Im/Po) 1 each MISCELLANE ONCE PRN; Protocol PRN Reason: Consult order Phenobarbital (Phenobarbital 30 Mg Tablet) 30 mg PO BID [facility]; Protocol Stop: 12/07/23 09:01 Last Admin: 12/06/23 08:49 Dose: Not Given Phenobarbital (Phenobarbital 15 Mg Tablet) 15 mg PO BID [facility]; Protocol Stop: 12/09/23 09:01 Phenobarbital (Phenobarbital 15 Mg Tablet) 15 mg PO DAILY [facility]; Protocol Stop: 12/11/23 09:01 Sodium Chloride (0.9 % Sodium Chloride Flush 3 Ml Syringe) 3 ml IVFLUSH QSHIFT [facility] Last Admin: 12/06/23 08:55 Dose: 3 ml Thiamine HCl (Thiamine Hcl 100 Mg Tablet) 100 mg PO DAILY [facility] Last Admin: 12/06/23 08:46 Dose: 100 mg Home Medications Medication Instructions Recorded Confirmed Last Taken Type clotrimazole-betamethasone 1 1 appl topical TID 12/05/23 12/05/23 Unknown History %-0.05 % topical cream lisinopril 5 mg tablet 5 mg PO DAILY 12/05/23 12/05/23 Unknown History pravastatin 40 mg tablet 40 mg PO DAILY 12/05/23 12/05/23 Unknown History Physical Exam Vital Signs: Vital Signs: Last Vital Signs Temp 98.3 F 12/06/23 07:55 Pulse 120 H 12/06/23 07:55 Resp 20 12/06/23 07:55 BP 145/95 H 12/06/23 07:55 Pulse Ox 100 12/06/23 07:55 O2 Del Method Nasal Cannula 12/06/23 07:55 O2 Flow Rate 1 12/06/23 03:33 BMI result Body Mass Index 26.4 EXAM: GENERAL: The patient is well developed and nontoxic. VITAL SIGNS:see workflow HEENT: Nonicteric sclerae, PERRLA, EOMI. Oropharynx clear. Moist mucous membranes. Conjunctivae appear well perfused. No thyroid mass. CHEST: Chest wall is nontender. HEART: Regular rate and rhythm without murmurs. LUNGS: Clear to auscultation bilaterally. ABDOMEN: Soft, positive bowel sounds, nontender, no organomegaly.no flank tenderness SKIN: No rash, no excessive bruising, petechiae, or purpura. NEUROLOGIC: Cranial nerves II-XII intact without motor/sensory deficit. Psych: normal affect Results Labs 12/07/23 05:55 12/07/23 05:55 Labs: Short CBC 12/06/23 12/06/23 Range/Units 06:26 08:53 WBC 6.0 (4.8-10.8) X10*3/uL Hgb 7.7 L D 7.6 L (12.0-16.0) g/dl Hct 23.1 L D 22.4 L (37.0-47.0) % Plt Count 183 D (160-400) X10*3/uL BMP 12/05/23 13:20 Sodium 134 L Potassium 4.3 D Chloride 103 Carbon Dioxide 20 L BUN 42 H Creatinine 1.92 H Calcium 8.9 D Urine 12/05/23 Range/Units 16:05 Urine Color Yellow Urine Appearance Clear Urine pH 5.5 (5.0-9.0) Ur Specific [place] 1.020 (1.005-1.025) Urine Protein 300 (3+) H (Neg-Trace) mg/dL Urine Glucose (UA) 100 H (Negative) mg/dL ECG Attestation: I personally reviewed and interpreted this ECG as follows: (T wave inversions, infero lateral) Imaging CT scan - abdomen: Attestation: I personally reviewed and interpreted this imaging study as follows: (degen spine changes, diverticulosis, ) Assessment and Plan (1) Anemia: Qualifiers: Anemia type: unspecified type Qualified Code(s): D64.9 - Anemia, unspecified Status: Acute (2) Non-ST elevation (NSTEMI) myocardial infarction: Status: Acute (3) Alcohol withdrawal: Qualifiers: Complication of substance-induced condition: uncomplicated Qualified Code(s): F10.930 - Alcohol use, unspecified with withdrawal, uncomplicated Status: Acute Plan 1/ Anemia, no overt GI bleeding, b12, folate and iron sat are normal. Maybe due to Bone marrow toxicity from alcohol, malabsorption, diet or occult bleeding e.g alcoholic gastritis, MV tear, esophagitis. In any case now complicated by NSTEMI. PLAN: 1/ In absence of overt GIB ok for anticoagulation if needed, would commence PPI and nausea medications 2/ addiction support 3/ MV and B vitamins 4/ check celiac panel, o/p EGd, colo if remains stable when cleared by cardiology 5/ transfuse to keep HGB >8 g/dl given cardiac hx Procedures Date of Service Date of Service: 12/07/23
[2023-12-06 11:28] VITALS: BP 99/63; PULSE 98; RESP 17; TEMP 36.9; O2SAT 100
[2023-12-06 12:54] LABS: Alanine Aminotransferase 15 U/L (0-31); Albumin Level 3.8 g/dL (3.5-5.0); Alkaline Phosphatase 40 U/L (39-117); Anion Gap 15 (12-20); Aspartate Amino Transferase 27 U/L (5-31); Bilirubin Total 0.5 mg/dL (0.0-1.0); Blood Urea Nitrogen 40 mg/dL (9-16); Calcium 7.9 mg/dL (8.4-10.2); Carbon Dioxide 18 mmol/L (22-29); Chloride 103 mmol/L (96-108); Creatinine Clr Calc Pharmacy 29.8; Estimated Glomerular Filt Rate 34; Glucose Random 99 mg/dL (60-115); Potassium 3.6 mmol/L (3.3-5.1); Sodium 132 mmol/L (135-145)
[2023-12-06 13:00] LABS: PTT Heparin Drip 24.7 SEC (53-77.9)
[2023-12-06] MEDS: Heparin Sodium,Porcine/1/2NS 25,000 UNIT/250 ML IV.SOLN 8.57 UNIT IVCONT (13:16)
[2023-12-06 15:26] VITALS: BP 121/74; PULSE 114; RESP 20; TEMP 36.9; O2SAT 99
[2023-12-06 19:38] VITALS: BP 132/86; PULSE 126; RESP 20; TEMP 36; O2SAT 100
[2023-12-06 19:58] LABS: PTT Heparin Drip 46.7 SEC (53-77.9)
[2023-12-07] VITALS: BP 146/87; PULSE 115; RESP 20; TEMP 36.3; O2SAT 96
[2023-12-07 02:33] LABS: PTT Heparin Drip 74.9 SEC (53-77.9)
[2023-12-07 04:00] VITALS: BP 109/72; PULSE 92; RESP 20; TEMP 36.6; O2SAT 98
[2023-12-07 05:13] LABS: OBS Int Ctl Valid YES; OBS1 NEGATIVE (NEGATIVE)
--- NOTE | 2023-12-07 07:00 | CA_ITS ---
Transthoracic Echocardiogram Patient (Last, First, Middle): Lore Luz, Gender: Female Date of : 1960 Age: 63 Procedure Date: 12/07/2023 Procedure Type: Transthoracic Echocardiogram [place] [facility] [place]: 152.4 cm Weight: 61.24 kg BSA: 1.58 m2 Heart Rate: bpm BP: 117 / 77 mmHg Manager Of Training: OBDULIO Referring MD: Nikki Farah NP Co Pilot: Ozzie Goode MD Symptoms: NSTEMI Study Quality: Adequate ECG Rhythm: Sinus Conclusions: - 1. Mildly reduced LV ejection fraction with diffuse wall motion abnormality which could be secondary to stress-induced cardiomyopathy 2. Mild mitral regurgitation 3. [id number] tricuspid regurgitation with moderately elevated right ventricular systolic pressure mildly elevated right atrial pressures 4. Mildly dilated ascending aorta 3.8 cm 5. No pericardial effusion Findings Procedure Information Contrast agent, definity, is being given per protocol without apparent complications. Left Ventricle Normal left ventricular cavity size. There is normal left ventricular wall thickness. The left ventricular systolic function is mildly decreased. The visually estimated ejection fraction is between 45-50%. Spectral Doppler is indicative of a pseudonormal filling pattern. There is mild septal asymmetric hypertrophy. Pattern of wall motion abnormality in the mid and apical segments is consistent with stress-induced cardiomyopathy Wall Motion Rest Echo Findings The apical anterior, apical inferior, mid anterior, mid inferior, apical lateral, apical septum, mid anterolateral, mid inferoseptal, mid anteroseptal, and mid inferolateral segments are hypokinetic. The apex segment is akinetic. All other scored wall segments showed normal motion. Right Ventricle Normal right ventricular cavity size. There is mildly decreased right ventricular systolic function. Atria Both atria are normal in size. There is no evidence of interatrial shunt. Aortic Valve Normal aortic valve structure and function. There is no aortic valve stenosis. There is no aortic valve regurgitation. Mitral Valve Normal mitral valve structure and function. There is mild mitral valve regurgitation. There is no mitral valve stenosis. Pulmonic Valve The pulmonic valve is likely normal. There is trace pulmonic valve regurgitation. Tricuspid Valve Normal tricuspid valve structure. There is mild to moderate tricuspid valve regurgitation. Mildly elevated right atrial pressure. Moderate pulmonary hypertension is present. Great Vessels The pulmonary artery was not well visualized. There is mild dilatation of the ascending aorta measuring 3.80 cm. Venous The inferior vena cava is mildly dilated and collapses less than 50% with inspiration. Pericardium/Pleural There is no evidence of pericardial effusion. Prior Study Comparison No prior study available for comparison. Measurements 2D Linear Measurements IVSd: 1.38 0.6-0.9/0.6-1.0 cm LVIDd: 3.70 3.9-5.3/4.2-5.9 cm LVIDd Index: 2.34 2.4-3.2/2.2-3.1 cm/m2 LVIDs: 2.72 2.0-3.6 cm LVPWd: 0.96 0.7-1.1 cm Ao Root: 2.90 2.1-3.5 cm LA Diam: 3.70 2.7-3.8/3.0-4.0 cm LAIDs Index: 2.34 1.5-2.3 cm/m2 LV Mass: 176.14 67-162/88-224 g LV Mass Index: 111.48 43-95/49-115 g/m2 LVOT Diam: 1.80 3.0+(-)1.3 cm 2D Systolic Function EF 4C: 49.50 >55% EF 2C: 42.80 >55% EF BiP: 46.00 >55% Mitral Valve MV Pk E: 1.27 MV PK A: 0.89 MV Decel Time: 105.00 E/A: 1.40 E'Lateral: 6.20 E'Medial: 3.92 E/E' Med: 32.40 E/E' Lat: 20.50 PHT: 31.00 MVA PHT: 7.10 Decel Bucks: 12.02 MR Vol - PW Dopp: 10.08 MR VTI: 1.26 MR ERO: 8.00 MR Alias Som: 0.39 MR RAD: 0.40 Aortic Valve AoV Pk Som: 1.12 AoV Pk Grad: 5.00 LVOT LVOT Pk Som: 1.12 LVOT Mn Som: 0.82 LVOT VTI: 0.19 LVOT Pk Grad: 5.00 LVOT Mn Grad: 3.00 LVOT Diam: 1.80 LVOT Area: 2.54 Diastolic Function MV Pk E: 1.27 MV Pk A: 0.89 E/A: 1.40 E'Medial: 3.92 E/E' Med: 32.40 E' Laterial: 6.20 E/E' Lat: 20.50 Right Ventricle TAPSE (mm): 16.00 TVS' Som: 9.00 Tricuspid Valve TR Pk Som: 3.29 TR Pk Grad: 43.00 RA Press: 8.00 RVSP: 51.00 Great Vessels Aorta Ao Root-2D: 2.90 2.0-3.7 cm Ao Asc: 3.80 2.1-3.4 cm Pulmonary Valve PV Pk Som: 1.03 Peak PV Grad: 4.00 Updated in Other Vendor System with Status of Final Ozzie Goode MD electronically signed on 12/07/2023 11:09:56 AM with status of Final
[2023-12-07 07:02] VITALS: BP 117/77; PULSE 100; RESP 20; TEMP 36.6; O2SAT 97
[2023-12-07 07:04] LABS: Hematocrit 23.2 % (37.0-47.0); Mean Corpuscular HGB Conc 34.5 g/dl (31.0-35.0); Mean Corpuscular Hemoglobin 32.7 pg (27.0-33.0); Mean Corpuscular Volume 94.7 fL (80.0-98.0); Mean Platelet Volume 10.3 fL (9.4-12.3); Platelet Count 197 X10*3/uL (160-400); Red Blood Count 2.45 X10*6/uL (4.20-5.50); Red Cell Distribution Width 12.8 % (11.0-16.0)
[2023-12-07 07:31] LABS: Anion Gap 13 (12-20); Blood Urea Nitrogen 24 mg/dL (9-16); Calcium 7.8 mg/dL (8.4-10.2); Carbon Dioxide 19 mmol/L (22-29); Chloride 104 mmol/L (96-108); Creatinine Clr Calc Pharmacy 39.9; Estimated Glomerular Filt Rate 47; Glucose Random 109 mg/dL (60-115); Iron 36 mcg/dL (30-160); Percent Iron Saturation 21 % (15-50); Potassium 3.9 mmol/L (3.3-5.1); Sodium 132 mmol/L (135-145); Total Iron Binding Capacity 173 mcg/dL (228-428); Unsaturated Iron Binding 137 ug/dL
[2023-12-07 08:06] LABS: Vitamin B12 > 2000 pg/mL (200-900)
[2023-12-07] MEDS: Aspirin 81 MG TAB.CHEW PO (08:23)
[2023-12-07] MEDS: Magnesium Oxide 400 MG TABLET PO (08:23)
[2023-12-07] MEDS: Thiamine HCL 100 MG TABLET PO (08:23)
[2023-12-07] MEDS: Folic Acid 1 MG TABLET PO (08:23)
[2023-12-07] MEDS: Multivitamin TABLET 1 TAB PO (08:23)
[2023-12-07] MEDS: 0.9 % Sodium Chloride Flush 3 ML SYRINGE IVFLUSH (08:27)
[2023-12-07] MEDS: Magnesium Hydrox/Alum Hydrox 30 ML ORAL.SUSP PO (08:40)
[2023-12-07] MEDS: Levothyroxine Sodium 88 MCG TABLET PO (08:40)
[2023-12-07 08:46] LABS: PTT Heparin Drip 69.6 SEC (53-77.9)
[2023-12-07] MEDS: cloNIDine HCL 0.1 MG TABLET PO (09:00)
--- NOTE | 2023-12-07 10:14 | P.CONNP_ITS ---
History of Present Illness Reason for Consult Consult date: 12/07/23 Reason for consult: ARAM Chief Complaint Chief complaint: NSTEMI, ETOH withdrawal History of Present Illness Narrative: 63 year old women with history of alcohol abuse presented with several days of nausea and vomiting. She drinks 2 bottles of wine daily. She had some episodes of nonbloody diarrhea with no significant abdominal pain. She also had left sided non radiating chest pressure with some mild sob . She denied fever, chills, recent travel, sick contacts, recent illness. In the ED, abd CT showed no evidence of acute abnormality, troponin 6814.2, repeat 3378.4. She was started on Iv heparin drip, given phenobarbitol for alcohol withdrawal, IV magnesium for mag of 1.2. She was ruled in for NSTEMI and had alcohol withdrawal. She was admitted for further management. Nephrology has been consulted to assist in her clinical care during her current hospital stay Review of Systems Review of Systems Yes all other systems are reviewed and are negative PMFSH Past Medical History Medical History Marijuana use Hypothyroidism Hyperlipidemia Hypertension Alcohol abuse Social History Social History (Updated 12/05/23 @ 15:38 by Nikki Farah NP) Household Members: Spouse Housing: House Do you presently have visiting nurse or other home services: No Alcohol intake: current Alcohol intake frequency: 0-2 drinks per day Alcohol type: wine Comment: 20 years, 2 bottles of wine per day Patient Tobacco Use Status: Never used Tobacco Second Hand Smoke Exposure: No Substance Use Type: Marijuana service: No Meds Allergies Allergy/AdvReac Type Severity Reaction Status Date / Time amoxicillin [AMOXICILLIN] Allergy Unknown RASH Verified 12/05/23 06:40 doxycycline [DOXYCYCLINE] Allergy Unknown NAUSEA Verified 12/05/23 06:40 /VOMITING penicillin V Allergy Unknown facial Verified 12/05/23 06:40 edema Sulfa (Sulfonamide Allergy Unknown rash Verified 12/05/23 06:40 Antibiotics) sulfamethoxazole Allergy Unknown FACE Verified 12/05/23 06:40 [From BACTRIM] SWELLING trimethoprim [From BACTRIM] Allergy Unknown FACE Verified 12/05/23 06:40 SWELLING minocycline [Minocin] AdvReac Unknown GI Verified 12/05/23 06:40 upset/nausea Doxycycline Hyclate AdvReac Unknown GI Uncoded 04/13/13 00:00 upset/nausea Active Medications: Current Medications Acetaminophen (Acetaminophen 325 Mg Tablet) 650 mg PO Q6H PRN PRN Reason: Pain, Mild (Pain Scale 1-3) Al Hydroxide/Mg Hydroxide (Magnesium Hydrox/Alum Hydrox 30 Ml Oral.Susp) 30 ml PO Q6H PRN PRN Reason: Heartburn Last Admin: 12/07/23 08:40 Dose: 30 ml Aspirin (Aspirin 81 Mg Tab.Chew) 81 mg PO DAILY [facility] Last Admin: 12/07/23 08:23 Dose: 81 mg Atorvastatin Calcium (Atorvastatin Calcium 40 Mg Tablet) 40 mg PO BEDTIME [facility] Last Admin: 12/06/23 23:29 Dose: Not Given Clonidine HCl (Clonidine Hcl 0.1 Mg Tablet) 0.1 mg PO BID [facility]; Protocol Last Admin: 12/06/23 23:27 Dose: 0.1 mg Folic Acid (Folic Acid 1 Mg Tablet) 1 mg PO DAILY [facility] Last Admin: 12/07/23 08:23 Dose: 1 mg Heparin Sodium (Porcine) (Heparin Sodium,Porcine 5,000 Unit/Ml Vial) 2,400 unit 40 unit/kg (2400 unit) IVPUSH PROTOCOL BOLUS PRN; Protocol PRN Reason: 40 unit/kg - Heparin Protocol Last Admin: 12/06/23 20:16 Dose: 2,400 unit Heparin Sodium (Porcine) (Heparin Sodium,Porcine 5,000 Unit/Ml Vial) 4,900 unit 80 unit/kg (4900 unit) IVPUSH PROTOCOL BOLUS PRN; Protocol PRN Reason: 80 unit/kg - Heparin Protocol Heparin Sodium/Sodium Chloride (Heparin Sodium,Porcine/1/2ns) 25,000 unit in 250 mls @ 0 mls/hr IVCONT .Q0M [facility]; Protocol Last Titration: 12/07/23 02:45 Dose: 16 units/kg/hr, 9.8 mls/hr Levothyroxine Sodium (Levothyroxine Sodium 88 Mcg Tablet) 88 mcg PO DAILY@0600 [facility] Last Admin: 12/07/23 08:40 Dose: 88 mcg Magn[facility] ([facility] Last Admin: 12/07/23 08:23 Dose: 400 mg Multivitamins/Vitamin C (Multivitamin Tablet) 1 tab PO DAILY [facility] Last Admin: 12/07/23 08:23 Dose: 1 tab Pharmacy Consult (Consult Rx Etoh Phenob Im/Po) 1 each MISCELLANE ONCE PRN; Protocol PRN Reason: Consult order Phenobarbital (Phenobarbital 15 Mg Tablet) 15 mg PO BID [facility]; Protocol Stop: 12/09/23 09:01 Phenobarbital (Phenobarbital 15 Mg Tablet) 15 mg PO DAILY [facility]; Protocol Stop: 12/11/23 09:01 Sodium Chloride (0.9 % Sodium Chloride Flush 3 Ml Syringe) 3 ml IVFLUSH QSHIFT [facility] Last Admin: 12/07/23 08:27 Dose: 3 ml Thiamine HCl (Thiamine Hcl 100 Mg Tablet) 100 mg PO DAILY [facility] Last Admin: 12/07/23 08:23 Dose: 100 mg Home Medications Medication Instructions Recorded Confirmed Last Taken Type clotrimazole-betamethasone 1 1 appl topical TID 12/05/23 12/05/23 Unknown History %-0.05 % topical cream lisinopril 5 mg tablet 5 mg PO DAILY 12/05/23 12/05/23 Unknown History pravastatin 40 mg tablet 40 mg PO DAILY 12/05/23 12/05/23 Unknown History Physical Exam Vital Signs: Last Vital Signs Temp 97.8 F 12/07/23 07:02 Pulse 100 12/07/23 07:02 Resp 20 12/07/23 07:02 BP 117/77 12/07/23 07:02 Pulse Ox 97 12/07/23 07:02 O2 Del Method Room Air 12/07/23 07:02 O2 Flow Rate 1 12/06/23 03:33 BMI result Body Mass Index 26.4 Const General: comfortable and no acute distress Orientation/consciousness: patient oriented x3 HEENT Head: Yes normocephalic Mouth: Normal oral and palatal mucosa present Eyes EOM: EOMs intact bilaterally Neck Neck: Yes supple Resp Auscultation: clear to auscultation bilaterally Cardio Jugular venous distension: no JVD Rate: regular rate GI Palpation (GI): Soft to palpation Auscultation: normal bowel sounds General: Yes no CVA tenderness Back/Spine/Pelvis Back: no CVA tenderness Skin General skin exam: no rashes or lesions noted Neuro General: patient oriented x3 and moves all extremities Extrem General: Yes no pedal edema Results Lab Results 12/07/23 05:55 12/07/23 05:55 Lab results: Chemistry 12/05/23 12/05/23 12/06/23 05:54 13:20 06:26 Sodium 131 L 134 L 132 L Potassium 3.4 4.3 D 3.6 Carbon Dioxide 18 L 20 L 18 L BUN 45 H 42 H 40 H Creatinine 2.61 H 1.92 H 1.54 H Calcium 10.5 H 8.9 D 7.9 L D 12/07/23 05:55 Sodium 132 L Potassium 3.9 Carbon Dioxide 19 L BUN 24 H Creatinine 1.15 Calcium 7.8 L Hematology 12/05/23 12/06/23 12/06/23 05:54 06:26 08:53 WBC 21.2 H 6.0 Hgb 11.1 L 7.7 L D 7.6 L Plt Count 337 183 D 12/07/23 05:55 WBC 7.0 Hgb 8.0 L Plt Count 197 Urinalysis 12/05/23 16:05 Urine Color Yellow Urine Appearance Clear Urine pH 5.5 Ur Specific [place] 1.020 Urine Protein 300 (3+) H Urine Glucose (UA) 100 H Urine Ketones 15 Urine Blood Negative Urine Nitrite Negative Ur Leukocyte Esterase Small (1+) H Urine RBC 0-2 Urine WBC 0-5 Ur Squamous Epith Cells 3-5 Hyaline Casts 11-20 Assessment and Plan (1) ARAM (acute kidney injury): Status: Acute Plan Acute kidney injury due to compromised renal perfusion with resultant tubular injury Not known to any chronic disease at baseline. No recent suspect in obstruction, GN or AIN Serum creatinine improving with supportive care; can have contrast for angiography now Shall arrange office follow-up once she gets discharged from hospital for continued care Procedures Date of Service Date of Service: 12/07/23
--- NOTE | 2023-12-07 10:18 | P.PNCA_ITS ---
Subjective Subjective Date of Service: 12/07/23 Principal diagnosis: NSTEMI, LV systolic dysfunction Interval history: Patient says she is having mild chest pressure this morning. Echocardiogram at bedside to be reviewed although suggestive of apical wall motion abnormality. Patient says she has currently not having any symptoms related to withdrawal. Denies any tremors or disorientation or feeling of restlessness. She is taking medications. Noted to be anemic but the hemoglobin is stable. No overt signs of GI bleeding. Occult blood is negative. Kidney functions have improved. Review of Systems Constitutional: Reports no additional constitutional complaints Cardiovascular: Reports chest pain at rest, Denies lightheadedness, Denies Loss of Consciousness, Denies palpitations and Denies dyspnea on exertion Respiratory: Denies dyspnea on exertion Gastrointestinal: Reports no additional gastrointestinal complaints Genitourinary: Reports no additional female genitourinary complaints Musculoskeletal: Reports no additional musculoskeletal complaints Reports system reviewed and no additional complaints, except as documented Psychiatric: Reports anxiety Endocrine: Denies palpitations Physical Exam Vital Signs: Last Vital Signs Temp 97.8 F 12/07/23 07:02 Pulse 100 12/07/23 07:02 Resp 20 12/07/23 07:02 BP 117/77 12/07/23 07:02 Pulse Ox 97 12/07/23 07:02 O2 Del Method Room Air 12/07/23 07:02 O2 Flow Rate 1 12/06/23 03:33 BMI result Body Mass Index 26.4 GENERAL APPEARANCE: in no acute distress. NECK: no carotid bruit, no jugular venous distention. SKIN: no suspicious lesions, warm and dry. HEART: no murmurs, regular rate and rhythm. Tachycardic. LUNGS: clear to auscultation bilaterally. ABDOMEN: soft, nontender. EXTREMITIES: no edema. PERIPHERAL PULSES: equal. NEUROLOGIC: No gross deficits, AAO X 3 Objective Labs and Meds 12/07/23 05:55 12/07/23 05:55 Lab results: Laboratory Results - last 24 hr 12/06/23 12/06/23 12/06/23 06:26 12:44 12:44 WBC RBC Hgb Hct MCV MCH MCHC RDW Plt Count MPV Absolute Nucleated RBC Nucleated RBC % (auto) aPTT Heparin Protocol 24.7 L D Cancelled Sodium 132 L Potassium 3.6 Chloride 103 Carbon Dioxide 18 L Anion Gap 15 BUN 40 H Creatinine 1.54 H Estim Creat Clear Calc 29.8 Estimated GFR 34 Random Glucose 99 Calcium 7.9 L D Iron TIBC % Saturation Unsat Iron Binding Total Bilirubin 0.5 AST 27 ALT 15 Alkaline Phosphatase 40 Total Protein 6.0 L Albumin 3.8 Vitamin B12 Folate Stool Occult Blood 12/06/23 12/07/23 12/07/23 19:43 02:21 04:45 WBC RBC Hgb Hct MCV MCH MCHC RDW Plt Count MPV Absolute Nucleated RBC Nucleated RBC % (auto) aPTT Heparin Protocol 46.7 L D 74.9 D Sodium Potassium Chloride Carbon Dioxide Anion Gap BUN Creatinine Estim Creat Clear Calc Estimated GFR Random Glucose Calcium Iron TIBC % Saturation Unsat Iron Binding Total Bilirubin AST ALT Alkaline Phosphatase Total Protein Albumin Vitamin B12 Folate Stool Occult Blood NEGATIVE 12/07/23 12/07/23 05:55 08:27 WBC 7.0 RBC 2.45 L Hgb 8.0 L Hct 23.2 L MCV 94.7 MCH 32.7 MCHC 34.5 RDW 12.8 Plt Count 197 MPV 10.3 Absolute Nucleated RBC 0.000 Nucleated RBC % (auto) 0.0 aPTT Heparin Protocol 69.6 Sodium 132 L Potassium 3.9 Chloride 104 Carbon Dioxide 19 L Anion Gap 13 BUN 24 H Creatinine 1.15 Estim Creat Clear Calc 39.9 Estimated GFR 47 Random Glucose 109 Calcium 7.8 L Iron 36 TIBC 173 L % Saturation 21 Unsat Iron Binding 137 Total Bilirubin AST ALT Alkaline Phosphatase Total Protein Albumin Vitamin B12 > 2000 H Folate 9.0 Stool Occult Blood Progress Note: A&P Assessment and plan (1) Non-ST elevation (NSTEMI) myocardial infarction: Status: Acute Assessment and Plan: Patient admitted with alcohol withdrawal with acute kidney injury due to dehydration hypomagnesemia and noted to have NSTEMI with LV systolic dysfunction. Possibility of takotsubo cardiomyopathy exist although this is a diagnose of exclusion. She has significant anemia although this appears to be not related GI bleeding. Kidney function is improved. Will suggest her to undergo cardiac catheterization to further evaluate coronary anatomy. Meanwhile continue IV heparin drip. Continue aspirin high-intensity statin therapy. Advise low-dose metoprolol therapy for myocardial ischemic protection as potential treatment for stress-induced cardiomyopathy if present. The risks, benefits, alternatives to cardiac catheterization were discussed with her and her family at bedside. She promises not to use alcohol again. Further management based on the finding of cardiac catheterization. Arrangements for transfer to [facility] have been initiated. Will follow with her as outpatient Time Spent With Patient Time: Total time managing care of this patient today ____ minutes. Progress Note: Quality Stroke Does the patient have a stroke diagnosis?: No Procedures Date of Service Date of Service: 12/07/23
[2023-12-07 11:09] VITALS: BP 131/85; PULSE 103; RESP 18; TEMP 36.3; O2SAT 98
--- NOTE | 2023-12-07 11:48 | P.DS_ITS ---
DS: Providers Provider Date of Service: 12/07/23 Date of admission: 12/05/23 07:51 Primary care physician: Mona Gallegos MD Consults: 12/05/23 07:52 Consult to Cardiology Routine Consulting Provider: [facility] Reason for consultation: NSTEMI 12/05/23 15:43 Consult to Nephrology Routine Consulting Provider: [facility] Reason for consultation: aram 12/06/23 08:56 Consult to Gastroenterology Routine Consulting Provider: Brittani Burgess Reason for consultation: anemia DS: Diagnosis Discharge Diagnosis (1) Non-ST elevation (NSTEMI) myocardial infarction: Status: Acute (2) ARAM (acute kidney injury): Status: Acute DS: Summary Hospital Course Hospital Course: 63 year old women with a history of alcohol abuse presenting with several days of nausea and vomiting. She reports that she drinks 2 bottles of wine daily and hasn't had a drink since Thursday because of nausea and vomiting. She also had some episodes of nonbloody diarrhea with no significant abdominal pain. last night she reported several minutes of left sided non radiating chest pressure with some mild sob when taking in a deep breath. She denied fever, chills, recent travel, sick contacts, recent illness. In the ED, abd CT showed no evidence of acute abnormality, troponin 6814.2, repeat 3378.4. She was started on Iv heparin drip, given phenobarbitol for alcohol withdrawal, IV magnesium for mag of 1.2. h will be admitted to Telemetry for further management and treatment of NSTEMI and alcohol withdrawal 63-year-old woman treated for acute NSTEMI. Started on IV heparin, aspirin, statin. Seen and evaluated by Cardiology who suggested patient's condition was likely related to takotsubo cardiomyopathy. Patient has a history of alcohol abuse and drinks 2 bottles of wine a day. Her last drink was approximately 6 days ago she had been feeling nauseous and having nonbloody vomiting episodes and had stopped drinking. During the hospitalization she has been on phenobarbital protocol, IV fluids, folic acid, thiamine and multivitamin. Patient has done well and has not had any severe withdrawal symptoms. She was noted to have ARAM as well likely secondary to alcohol abuse, hypertension dehydration. Treated with IV fluids and trending down. She had some episodes of hypomagnesemia secondary to alcohol abuse but likely secondary to alcohol abuse. Plan is for transfer to [facility] for cardiac catheterization. Time Attestation Discharge Coordination Time (in mins): 40 Quality: Safe Use of Opioids Does Pt have an Active Cancer Diagnosis on the Problem List?: No Quality: Stroke Does the patient have a stroke diagnosis?: No Physical Exam Vital Signs: Vital Signs: Last Vital Signs Temp 97.4 F 12/07/23 11:09 Pulse 103 H 12/07/23 11:09 Resp 18 12/07/23 11:09 BP 131/85 12/07/23 11:09 Pulse Ox 98 12/07/23 11:09 O2 Del Method Room Air 12/07/23 11:09 O2 Flow Rate 1 12/06/23 03:33 BMI result Body Mass Index 26.4 Appearing in no acute distress head is normocephalic atraumatic eyes pupils are PERRLA sclera is anicteric mouth throat mucous membranes are intact and moist neck is supple no lymphadenopathy, no JVD noted lung sounds are clear to auscultation heart regular rate rhythm, clear S1, S2 positive bowel sounds, abdomen is soft, nontender neuro patient is alert x3, no focal deficits DS: Data Data Completed and Pending Labs on day of discharge: Laboratory Results - last 24 hr 12/06/23 12/06/23 12/06/23 06:26 12:44 12:44 WBC RBC Hgb Hct MCV MCH MCHC RDW Plt Count MPV Absolute Nucleated RBC Nucleated RBC % (auto) aPTT Heparin Protocol 24.7 L D Cancelled Sodium 132 L Potassium 3.6 Chloride 103 Carbon Dioxide 18 L Anion Gap 15 BUN 40 H Creatinine 1.54 H Estim Creat Clear Calc 29.8 Estimated GFR 34 Random Glucose 99 Calcium 7.9 L D Iron TIBC % Saturation Unsat Iron Binding Total Bilirubin 0.5 AST 27 ALT 15 Alkaline Phosphatase 40 Total Protein 6.0 L Albumin 3.8 Vitamin B12 Folate Stool Occult Blood 12/06/23 12/07/23 12/07/23 19:43 02:21 04:45 WBC RBC Hgb Hct MCV MCH MCHC RDW Plt Count MPV Absolute Nucleated RBC Nucleated RBC % (auto) aPTT Heparin Protocol 46.7 L D 74.9 D Sodium Potassium Chloride Carbon Dioxide Anion Gap BUN Creatinine Estim Creat Clear Calc Estimated GFR Random Glucose Calcium Iron TIBC % Saturation Unsat Iron Binding Total Bilirubin AST ALT Alkaline Phosphatase Total Protein Albumin Vitamin B12 Folate Stool Occult Blood NEGATIVE 12/07/23 12/07/23 05:55 08:27 WBC 7.0 RBC 2.45 L Hgb 8.0 L Hct 23.2 L MCV 94.7 MCH 32.7 MCHC 34.5 RDW 12.8 Plt Count 197 MPV 10.3 Absolute Nucleated RBC 0.000 Nucleated RBC % (auto) 0.0 aPTT Heparin Protocol 69.6 Sodium 132 L Potassium 3.9 Chloride 104 Carbon Dioxide 19 L Anion Gap 13 BUN 24 H Creatinine 1.15 Estim Creat Clear Calc 39.9 Estimated GFR 47 Random Glucose 109 Calcium 7.8 L Iron 36 TIBC 173 L % Saturation 21 Unsat Iron Binding 137 Total Bilirubin AST ALT Alkaline Phosphatase Total Protein Albumin Vitamin B12 > 2000 H Folate 9.0 Stool Occult Blood Discharge Plan Discharge Anticipated Discharge Date/Time: 12/07/23 11:21 Patient Disposition: Xfer Acute Care Hospital Discharge Diagnosis: NSTEMI Alcohol withdrawal ARAM Hypomagnesemia Referrals: Mona Gallegos MD [Primary Care Provider] - 1 Week Discharge Medications: New multivitamin [Daily-Armida] Tablet 1 tab PO DAILY Qty: 30 0RF levothyroxine 88 mcg Tablet 88 mcg PO DAILY@0600 Qty: 30 0RF aspirin 81 mg Tablet,Chewable 81 mg PO DAILY Qty: 30 0RF folic acid 1 mg Tablet 1 mg PO DAILY Qty: 30 0RF heparin(porcine) in 0.45% NaCl 25,000 unit/250 mL Parenteral Solution 25,000 unit continuous IV infusion .Q0M Qty: 6000 0RF thiamine mononitrate (vit B1) 100 mg Tablet 100 mg PO DAILY Qty: 30 0RF Continued pravastatin 40 mg tablet 40 mg PO DAILY clotrimazole-betamethasone 1-0.05 % cream 1 appl topical TID lisinopril 5 mg tablet 5 mg PO DAILY Discharge Orders: Discharge Order (Routine); Ordered 12/07/23 Ordered By: Nikki Farah Diet: Advance to usual diet Activity on Discharge: As tolerated Stand Alone Forms: Patient Portal Discharge page Care Plan Goals: Transfer with IV heparin Health Concerns: NSTEMI Alcohol withdrawal ARAM Hypomagnesemia Plan of Treatment: Transferred to [facility] for cardiac catheterization Assessment: See discharge summary
--- NOTE | 2023-12-07 12:15 | MHC.CM.PN ---
Per MD rounds Patient will transfer to [facility] via ALS once a bed is available.
--- NOTE | 2023-12-07 13:28 | PC.NURSE ---
Pt A/Ox4. IV heparin running at 16 units/kg/hr. PTT therapuetic at 0830, next PTT set for 1430 per protocol. Denies any CP, palpitations, N/V. CIWA 0. Pt transferred to [facility] at ~1315. Report called to HELENE Nunez at 1330. Pts accompanied her in ambulance.
[2023-12-08 19:47] LABS: Immunoglobulin A 138 mg/dL (70-320); Transglutaminase IgA <1.0 U/mL
== END 2023-12-07 13:34 | disposition home or self-care (01) | DRG 280 ==
LOC: HO.ED 07:02 → HO.EDOVER 07:57 → HO.IMC 13:54
PROVIDERS: Student in an Organized Health Care Education/Training Program; Admitting Provider Nurse Practitioner Acute Care; Emergency Provider Emergency Medicine; PCP Internal Medicine; Visit Provider Nurse Practitioner Acute Care
DX: I21.4 Non-ST elevation (NSTEMI) myocardial infarction (principal); N17.0 Acute kidney failure with tubular necrosis; E87.1 Hypo-osmolality and hyponatremia; F10.139 Alcohol abuse with withdrawal, unspecified; I51.81 Takotsubo syndrome; D64.9 Anemia, unspecified; E86.0 Dehydration; E83.42 Hypomagnesemia; E03.9 Hypothyroidism, unspecified; I10 Essential (primary) hypertension; Z20.822 Contact with and (suspected) exposure to COVID-19; Z79.82 Long term (current) use of aspirin; Z79.890 Hormone replacement therapy; Z79.899 Other long term (current) drug therapy
CPT/HCPCS: 0241U; 36415; 74176; 80048; 80053; 80076; 80307; 81001; 82272; 82607; 82746; 82784; 83540; 83735; 84484; 85014; 85018; 85025; 85027; 85610; 85730; 86364; 87086; 93005; 93306; 99285; J1644; J2060; J2405; J2560; J3475; P9047; Q9957

== ENCOUNTER 2023-12-05 07:51 | Outpatient (BNV) | payer MEDICARE, SELFPAY | END 2023-12-07 07:00 | PROVIDERS: Admitting Provider Nurse Practitioner Acute Care; Emergency Provider Emergency Medicine; PCP Internal Medicine; Visit Provider Internal Medicine Cardiovascular Disease | DX: I34.0 Nonrheumatic mitral (valve) insufficiency (principal); I36.1 Nonrheumatic tricuspid (valve) insufficiency | CPT/HCPCS: 93306 ==

== ENCOUNTER 2023-12-05 07:51 | Outpatient (BNV) | payer MEDICARE, SELFPAY | END 2023-12-06 07:00 | PROVIDERS: Admitting Provider Nurse Practitioner Acute Care; Emergency Provider Emergency Medicine; PCP Internal Medicine; Visit Provider Internal Medicine Cardiovascular Disease | DX: I21.4 Non-ST elevation (NSTEMI) myocardial infarction (principal) | CPT/HCPCS: 93010 ==

== ENCOUNTER → 2023-12-05 07:51 | Outpatient (BNV) | payer MEDICARE, SELFPAY | PROVIDERS: Admitting Provider Nurse Practitioner Acute Care; Emergency Provider Emergency Medicine; PCP Internal Medicine; Visit Provider Nurse Practitioner Acute Care | DX: I21.4 Non-ST elevation (NSTEMI) myocardial infarction (principal); N17.9 Acute kidney failure, unspecified | CPT/HCPCS: 99223; 99232; 99239 ==

== ENCOUNTER → 2023-12-05 07:51 | Outpatient (BNV) | payer MEDICARE, SELFPAY | PROVIDERS: Admitting Provider Nurse Practitioner Acute Care; Emergency Provider Emergency Medicine; PCP Internal Medicine; Visit Provider Internal Medicine Nephrology | DX: N17.0 Acute kidney failure with tubular necrosis (principal) | CPT/HCPCS: 99222; 99499 ==

== ENCOUNTER → 2023-12-05 07:51 | Outpatient (BNV) | payer MEDICARE, SELFPAY | PROVIDERS: Admitting Provider Nurse Practitioner Acute Care; Emergency Provider Emergency Medicine; PCP Internal Medicine; Visit Provider Internal Medicine Cardiovascular Disease | DX: I21.4 Non-ST elevation (NSTEMI) myocardial infarction (principal); I42.9 Cardiomyopathy, unspecified; F10.939 Alcohol use, unspecified with withdrawal, unspecified; R00.0 Tachycardia, unspecified; I45.81 Long QT syndrome | CPT/HCPCS: 93010; 99223; 99233 ==

== ENCOUNTER → 2023-12-05 07:51 | Outpatient (BNV) | payer MEDICARE, SELFPAY | PROVIDERS: Admitting Provider Nurse Practitioner Acute Care; Emergency Provider Emergency Medicine; PCP Internal Medicine; Visit Provider Internal Medicine Gastroenterology | DX: D64.9 Anemia, unspecified (principal); I21.4 Non-ST elevation (NSTEMI) myocardial infarction; F10.930 Alcohol use, unspecified with withdrawal, uncomplicated | CPT/HCPCS: 99223 ==

== ENCOUNTER → 2023-12-08 23:59 | Outpatient (BNV) | payer MEDICARE, SELFPAY | PROVIDERS: PCP Internal Medicine; Visit Provider Internal Medicine Cardiovascular Disease | DX: I21.4 Non-ST elevation (NSTEMI) myocardial infarction (principal) | CPT/HCPCS: 92928; 93458; 99152 ==

== ENCOUNTER 2023-12-22 14:54 | Outpatient (AMB) | payer MEDICARE, SELFPAY ==
--- NOTE | 2023-12-22 14:57 | MHC.OFFVIS ---
Intake Vital Signs 12/22/23 15:02 Height 5 ft Weight 132 lb BMI 25.8 BP 140/80 H Blood Pressure Location Rt brachial Position Sitting Pulse 74 Pulse Source Pulse Oximeter Intake Visit Reasons: Hospital d/c follow up, post cardiac cath Intake Note: pt feels good Allergies amoxicillin [AMOXICILLIN] Allergy (Unknown, Verified 12/05/23 06:40) RASH doxycycline [DOXYCYCLINE] Allergy (Unknown, Verified 12/05/23 06:40) NAUSEA /VOMITING penicillin V Allergy (Unknown, Verified 12/05/23 06:40) facial edema Sulfa (Sulfonamide Antibiotics) Allergy (Unknown, Verified 12/05/23 06:40) rash sulfamethoxazole [From BACTRIM] Allergy (Unknown, Verified 12/05/23 06:40) FACE SWELLING trimethoprim [From BACTRIM] Allergy (Unknown, Verified 12/05/23 06:40) FACE SWELLING minocycline [Minocin] Adverse Reaction (Unknown, Verified 12/05/23 06:40) GI upset/nausea Doxycycline Hyclate Adverse Reaction (Unknown, Uncoded 04/13/13 00:00) GI upset/nausea Medication List - Last Reconciled 12/22/23 by Elizabeth Romero NP aspirin 81 mg PO DAILY atorvastatin 80 mg PO BEDTIME clotrimazole-betamethasone 1-0.05 % 1 appl topical TID folic acid 1 mg PO DAILY levothyroxine 88 mcg PO DAILY@0600 lisinopril 5 mg PO DAILY metoprolol tartrate 50 mg PO BID multivitamin (Daily-Armida tablet) 1 tab PO DAILY thiamine mononitrate (vit B1) 100 mg PO DAILY ticagrelor (Brilinta) 90 mg PO BID PFSH Medical History History of alcohol abuse Marijuana use Hypothyroidism Hyperlipidemia Hypertension Alcohol abuse Surgical History (Updated 12/23/23 @ 08:58 by Elizabeth Roemro NP) S/P cardiac catheterization Social History (Updated 12/05/23 @ 15:38 by Nikki Farah NP) Household Members: Spouse Housing: House Do you presently have visiting nurse or other home services: No Alcohol intake: current Alcohol intake frequency: 0-2 drinks per day Alcohol type: wine Comment: 20 years, 2 bottles of wine per day Patient Tobacco Use Status: Never used Tobacco Second Hand Smoke Exposure: No Substance Use Type: Marijuana service: No Review of Systems Const Denies weakness ENT Denies dizziness Card Denies chest pain, Denies chest pain with activity, Denies syncope, Denies rapid heart rate, Denies pedal edema, Denies edema, Denies leg edema, Denies lightheadedness, Denies palpitations, Denies dyspnea, Denies dyspnea on exertion and Denies orthopnea Resp Denies cough, Denies dyspnea and Denies dyspnea on exertion GI Denies hematochezia and Denies change in stool character Musc Denies abnormal gait, Denies muscle cramps, Denies muscle weakness, Denies numbness, Denies radiating pain into limb and Denies tingling Neuro Denies abnormal gait, Denies dizziness, Denies syncope, Denies numbness, Denies tingling and Denies weakness Endo Denies palpitations Physical Exam Vital Signs: Last Vital Signs Pulse 74 12/22/23 15:02 BP 140/80 H 12/22/23 15:02 BMI result Body Mass Index 25.8 Const General: healthy appearing and no acute distress Orientation/consciousness: patient oriented x3 HEENT Head: Yes normal to inspection Eyes General: appearance normal, both eyes and all related structures Neck Neck: Yes normal visual inspection Chest Chest palpation & inspection: normal inspection of the chest Resp Effort & Inspection: normal respiratory effort Auscultation: clear to auscultation bilaterally Cardio Jugular venous distension: no JVD Palpation: normal PMI Rate: regular rate Rhythm: regular rhythm Heart sounds: S1 normal heart sound present, S2 normal heart sound present, no click, no gallops, no murmurs and no rubs GI Inspection: Yes normal to inspection Palpation (GI): Soft to palpation Skin General skin exam: no rashes or lesions noted Neuro General: patient oriented x3 Extrem General: Yes normal to inspection Psych Appearance: grossly normal Assessment & Plan Assessment & Plan (1) S/P cardiac catheterization: Comment: 12/16/[address] Parker LMCA: Normal LAD: mid LAD 85% stenosis 6mm length. LCx: Ostial Circumflex 30% stenosis. RCA: Normal. PCI to LAD with JOSE ARMANDO Code(s): Z98.890 - Other specified postprocedural states (2) Non-ST elevation (NSTEMI) myocardial infarction: Code(s): I21.4 - Non-ST elevation (NSTEMI) myocardial infarction (3) Cardiomyopathy: Code(s): I42.9 - Cardiomyopathy, unspecified (4) History of alcohol abuse: Code(s): F10.11 - Alcohol abuse, in remission Plan Ejection fraction on echocardiogram on 12/07/23 was 45-50%. Will repeat limited echo in 2 months to reassess EF. JOSE ARMANDO placed to mid LAD. She is interested in cardiac rehab. ASA 81mg indefinitely. Brilinta for at least 12 months post stent placement. Patient reports understanding. She is on increased statin therapy will repeat lipid panel. Patient has been without any alcohol use for 3 weeks now. Congratulated. Discussed using resources to continue complete alcohol abstinence. heart healthy diet discussed. Orders: Orders Lipid Panel 12/22/23 I21.4 - Non-ST elevation (NSTEMI) myocardial infarction Basic Metabolic Panel 12/22/23 I21.4 - Non-ST elevation (NSTEMI) myocardial infarction Cardiac Rehab 12/22/23 I21.4 - Non-ST elevation (NSTEMI) myocardial infarction CA echo limited 2 Months I21.4 - Non-ST elevation (NSTEMI) myocardial infarction, I42.9 - Cardiomyopathy, unspecified Medications: New metoprolol tartrate 50 mg PO BID 60 tabs 1RF Coding Level of Care Code Est Pt Level 4 (36424) Diagnoses S/P cardiac catheterization Z98.890 Non-ST elevation (NSTEMI) myocardial infarction I21.4 Cardiomyopathy I42.9 History of alcohol abuse F10.11
[2023-12-22 15:02] VITALS: BP 140/80; PULSE 74; BMI 25.8
== END 2023-12-22 16:05 | disposition home or self-care (01) ==
PROVIDERS: PCP Internal Medicine; Visit Provider Nurse Practitioner
DX: Z98.890 Other specified postprocedural states (principal); I21.4 Non-ST elevation (NSTEMI) myocardial infarction; I42.9 Cardiomyopathy, unspecified; F10.11 Alcohol abuse, in remission
CPT/HCPCS: 99214

== ENCOUNTER → 2023-12-22 14:54 | Outpatient (BNVA) | payer MEDICARE, SELFPAY | PROVIDERS: PCP Internal Medicine; Visit Provider Nurse Practitioner | DX: I21.4 Non-ST elevation (NSTEMI) myocardial infarction (principal); I42.9 Cardiomyopathy, unspecified; F10.11 Alcohol abuse, in remission; Z98.890 Other specified postprocedural states | CPT/HCPCS: 99212 ==

== ENCOUNTER → 2024-02-12 09:53 | Outpatient (REF) | payer OTHER, SELFPAY ==
--- NOTE | 2024-02-12 09:56 | CA_ITS ---
Transthoracic Echocardiogram Patient (Last, First, Middle): Lore Luz, Gender: Female Date of : 1960 Age: 63 Procedure Date: 02/12/2024 Procedure Type: Transthoracic Echocardiogram Location: OP Height: 152.4 cm Weight: 61.24 kg BSA: 1.58 m2 Heart Rate: bpm BP: 116 / 56 mmHg Toaster Element Repairer: JEANNINE Referring MD: Elizabeth Romero NP Tool [employer] Die Repair: Ozzie Goode MD Symptoms: I21.4 - Non-ST elevation (NSTEMI) myocardial infarction Study Quality: Adequate ECG Rhythm: Sinus Conclusions: - Normal LV ejection fraction of 60-65% with impaired relaxation filling pattern Findings Left Ventricle Normal left ventricular size, thickness, and systolic function. The visually estimated ejection fraction is between 60-65%. There is no evidence of regional wall motion abnormalities. Spectral Doppler is indicative of an impaired relaxation filling pattern. E/E prime ratio is between 8 and 15 consistent with indeterminate filling pressures. Prior Study Comparison Changes noted compared to prior study dated: 12/07/2023. LV function and regional wall motion abnormality have improved Measurements 2D Linear Measurements IVSd: 0.95 0.6-0.9/0.6-1.0 cm LVIDd: 3.93 3.9-5.3/4.2-5.9 cm LVIDd Index: 2.49 2.4-3.2/2.2-3.1 cm/m2 LVIDs: 2.76 2.0-3.6 cm LVPWd: 0.96 0.7-1.1 cm LV Mass: 143.80 67-162/88-224 g LV Mass Index: 91.02 43-95/49-115 g/m2 2D Systolic Function EF 4C: 57.10 >55% EF 2C: 68.00 >55% EF BiP: 63.50 >55% Mitral Valve MV Pk E: 0.84 MV PK A: 1.09 MV Decel Time: 217.00 E/A: 0.80 E'Lateral: 6.74 E'Medial: 4.68 E/E' Med: 17.90 E/E' Lat: 12.50 PHT: 64.00 MVA PHT: 3.44 Decel [place]: 3.87 Diastolic Function MV Pk E: 0.84 MV Pk A: 1.09 E/A: 0.80 E'Medial: 4.68 E/E' Med: 17.90 E' Laterial: 6.74 E/E' Lat: 12.50 Right Ventricle TAPSE (mm): 24.00 TVS' Som: 12.00 Updated in Other Vendor System with Status of Final Ozzie Goode MD electronically signed on 02/14/2024 12:49:54 PM with status of Final
== END ==
LOC: HO.CARD 09:53
PROVIDERS: PCP Internal Medicine; Visit Provider Nurse Practitioner
DX: I21.4 Non-ST elevation (NSTEMI) myocardial infarction (principal); I42.9 Cardiomyopathy, unspecified
CPT/HCPCS: 93308

== ENCOUNTER → 2024-02-12 09:56 | Outpatient (BNV) | payer OTHER, SELFPAY | PROVIDERS: Visit Provider Internal Medicine Cardiovascular Disease | DX: I21.4 Non-ST elevation (NSTEMI) myocardial infarction (principal); R93.1 Abnormal findings on diagnostic imaging of heart and coronary circulation | CPT/HCPCS: 93308; 93321 ==

== ENCOUNTER 2024-03-14 09:52 | Outpatient (REF) | payer OTHER, MEDICARE, SELFPAY ==
[2024-03-14 11:50] LABS: Anion Gap 15 (12-20); Blood Urea Nitrogen 22 mg/dL (9-16); Calcium 10.1 mg/dL (8.4-10.2); Carbon Dioxide 23 mmol/L (22-29); Chloride 102 mmol/L (96-108); Cholesterol 176 mg/dL (<200); Estimated Glomerular Filt Rate 35; Glucose Random 131 mg/dL (60-115); HDL Cholesterol 79 mg/dL (>40); LDL Cholesterol Calculated 86 mg/dL (<100); Potassium 5.1 mmol/L (3.3-5.1); Sodium 135 mmol/L (135-145); Triglycerides 55 mg/dL (<150)
== END 2024-03-14 09:53 | disposition home or self-care (01) ==
LOC: HO.LAB 09:52
PROVIDERS: Absent Provider Nurse Practitioner; PCP Internal Medicine; Visit Provider Internal Medicine Cardiovascular Disease
DX: I21.4 Non-ST elevation (NSTEMI) myocardial infarction (principal)
CPT/HCPCS: 36415; 80048; 80061

== ENCOUNTER 2024-03-22 12:34 | Outpatient (AMB) | payer OTHER, MEDICARE, SELFPAY ==
--- NOTE | 2024-03-22 13:11 | A.OFFVIS_ITS ---
Vital Signs 03/22/24 13:12 03/22/24 13:33 Height 5 ft Weight 132 lb BMI 25.8 BP 160/80 H 142/72 H Blood Pressure Location Rt brachial Rt brachial Position Sitting Sitting Pulse 76 Pulse Source Pulse Oximeter Intake Visit Reasons: 3 mth f/up Allergies amoxicillin [AMOXICILLIN] Allergy (Unknown, Verified 12/05/23 06:40) RASH doxycycline [DOXYCYCLINE] Allergy (Unknown, Verified 12/05/23 06:40) NAUSEA /VOMITING penicillin V Allergy (Unknown, Verified 12/05/23 06:40) facial edema Sulfa (Sulfonamide Antibiotics) Allergy (Unknown, Verified 12/05/23 06:40) rash sulfamethoxazole [From BACTRIM] Allergy (Unknown, Verified 12/05/23 06:40) FACE SWELLING trimethoprim [From BACTRIM] Allergy (Unknown, Verified 12/05/23 06:40) FACE SWELLING minocycline [Minocin] Adverse Reaction (Unknown, Verified 12/05/23 06:40) GI upset/nausea Doxycycline Hyclate Adverse Reaction (Unknown, Uncoded 04/13/13 00:00) GI upset/nausea Medication List - Last Reconciled 03/22/24 by Elizabeth Romero, [place] aspirin 81 mg PO DAILY atorvastatin 80 mg PO BEDTIME folic acid 1 mg PO DAILY levothyroxine 75 mcg PO DAILY@0600 lisinopril 10 mg PO DAILY 90 days metoprolol tartrate 50 mg PO BID 90 days multivitamin (Daily-Armida tablet) 1 tab PO DAILY thiamine mononitrate (vit B1) 100 mg PO DAILY ticagrelor (Brilinta) 90 mg PO BID 90 days HPI Comments Details: 63-year-old female presents today for a follow-up. She had a cardiac catheterizarion and stent placed into the mid LAD back on 12/08/23. She reports she has been doing well. She denies any chest pains, shortness of breath, swelling, bleeding concners, or palpitations. She has been doing cardiac rehab and tolerating it well. She has returned to drinking but she reports it is only a little bit compared to prior. She sttaes her blood pressures at [facility] have been high someothing up into the 150s-170s systolic. [facility] Medical History History of alcohol abuse Marijuana use Hypothyroidism Hyperlipidemia Hypertension Alcohol abuse Surgical History S/P cardiac catheterization Social History Household Members: Spouse Housing: House Do you presently have visiting nurse or other home services: No Alcohol intake: current Alcohol intake frequency: 0-2 drinks per day Alcohol type: wine Comment: 20 years, 2 bottles of wine per day Patient Tobacco Use Status: Never used Tobacco Second Hand Smoke Exposure: No Substance Use Type: Marijuana service: No Review of Systems Const Denies weakness ENT Denies dizziness Card Denies chest pain, Denies chest pain with activity, Denies syncope, Denies rapid heart rate, Denies pedal edema, Denies edema, Denies leg edema, Denies lighthe adedness, Denies palpitations, Denies dyspnea, Denies dyspnea on exertion and Denies orthopnea Resp Denies cough, Denies dyspnea and Denies dyspnea on exertion GI Denies hematochezia and Denies change in stool character Musc Denies abnormal gait, Denies muscle cramps, Denies muscle weakness, Denies numbness, Denies radiating pain into limb and Denies tingling Neuro Denies abnormal gait, Denies dizziness, Denies syncope, Denies numbness, Denies tingling and Denies weakness Endo Denies palpitations Physical Exam Vital Signs: Last Vital Signs Pulse 76 03/22/24 13:12 BP 142/72 H 03/22/24 13:33 BMI result Body Mass Index 25.8 Const General: healthy appearing and no acute distress Orientation/consciousness: patient oriented x3 HEENT Head: Yes normal to inspection Eyes General: appearance normal, both eyes and all related structures Neck Neck: Yes normal visual inspection Chest Chest palpation & inspection: normal inspection of the chest Resp Effort & Inspection: normal respiratory effort Auscultation: clear to auscultation bilaterally Cardio Jugular venous distension: no JVD Palpation: normal PMI Rate: regular rate Rhythm: regular rhythm Heart sounds: S1 normal heart sound present, S2 normal heart sound present, no click, no gallops, no murmurs and no rubs GI Inspection: Yes normal to inspection Palpation (GI): Soft to palpation Skin General skin exam: no rashes or lesions noted Neuro General: patient oriented x3 Extrem General: Yes normal to inspection Psych Appearance: grossly normal Results Reviewed Results Reviewed: Limited Echocardiogram: Conclusions: - Normal LV ejection fraction of 60-65% with impaired relaxation filling pattern Assessment & Plan Assessment & Plan (1) S/P cardiac catheterization: Comment: 12/16/[address] Parker LMCA: Normal LAD: mid LAD 85% stenosis 6mm length. LCx: Ostial Circumflex 30% stenosis. RCA: Normal. PCI to LAD with JOSE ARMANDO Code(s): Z98.890 - Other specified postprocedural states Category: Surgical (2) Non-ST elevation (NSTEMI) myocardial infarction: Code(s): I21.4 - Non-ST elevation (NSTEMI) myocardial infarction Category: Medical (3) Cardiomyopathy: Code(s): I42.9 - Cardiomyopathy, unspecified Category: Medical (4) History of alcohol abuse: Code(s): F10.11 - Alcohol abuse, in remission Category: Medical Plan Doing cardiac rehab and tolerating well. Recent echocardiogram showed ejection fraction 60-65% with impaired relaxation filling pattern. Echocadiogram on 12/07/2023 showed EF of 45-50%. On ASA 81mg indefinitely. Brilinta for at least 12 months post stent placement. No bleeding concerns at this time. Reviewed signs of bleeding. Patient has returned to drinking. Advised complete cessation. Will increase lisinopril to 20mg. Monitor blood pressures. Avoidance of salt in diet. Last LDL was 86. Goal under 70. Will send Zetia - repeat labs in 2-3 months Orders: Orders Lipid Panel 2 Months Elizabeth Romero NP I21.4 - Non-ST elevation (NSTEMI) myocardial infarction, I42.9 - Cardiomyopathy, unspecified, Z98.890 - Other specified postprocedural states Basic Metabolic Panel 2 Months Elizabeth Romero NP I21.4 - Non-ST elevation (NSTEMI) myocardial infarction, I42.9 - Cardiomyopathy, unspecified, Z98.890 - Other specified postprocedural states Medications: New ezetimibe (Zetia) 10 mg PO DAILY 30 tabs 4RF Elizabeth Romero NP Changed From levothyroxine 88 mcg PO DAILY@0600 30 tabs 0RF To levothyroxine 75 mcg PO DAILY@0600 Nikki Farah NP From lisinopril 10 mg PO DAILY 90 days 90 tabs 3RF To lisinopril 20 mg PO DAILY 90 days 90 tabs 3RF Elizabeth Romero, [place] Coding Level of Care Code Est Pt Level 4 (84762) Diagnoses S/P cardiac catheterization Z98.890 Non-ST elevation (NSTEMI) myocardial infarction I21.4 Cardiomyopathy I42.9 History of alcohol abuse F10.11
[2024-03-22 13:12] VITALS: BP 160/80; PULSE 76; BMI 25.8
[2024-03-22 13:33] VITALS: BP 142/72
== END 2024-03-22 13:37 | disposition home or self-care (01) ==
PROVIDERS: PCP Internal Medicine; Visit Provider Nurse Practitioner
DX: Z98.890 Other specified postprocedural states (principal); I21.4 Non-ST elevation (NSTEMI) myocardial infarction; I42.9 Cardiomyopathy, unspecified; F10.11 Alcohol abuse, in remission
CPT/HCPCS: 99214

== ENCOUNTER → 2024-03-22 12:34 | Outpatient (BNVA) | payer MEDICARE, SELFPAY | PROVIDERS: PCP Internal Medicine; Visit Provider Nurse Practitioner | DX: I21.4 Non-ST elevation (NSTEMI) myocardial infarction (principal); I42.9 Cardiomyopathy, unspecified; F10.11 Alcohol abuse, in remission; Z98.890 Other specified postprocedural states | CPT/HCPCS: 99212 ==

== ENCOUNTER 2024-04-13 11:30 | Outpatient (RCR) | payer OTHER, SELFPAY | END 2024-04-15 06:37 | disposition home or self-care (01) | LOC: HO.CR 11:30 | PROVIDERS: PCP Internal Medicine; Visit Provider Internal Medicine | DX: I21.4 Non-ST elevation (NSTEMI) myocardial infarction (principal) | CPT/HCPCS: 93798 ==

== ENCOUNTER 2024-08-03 10:25 | Outpatient (AMB) | payer MEDICARE, SELFPAY ==
[2024-08-03 10:53] VITALS: BP 100/60; PULSE 62; BMI 24.8
--- NOTE | 2024-08-03 10:53 | A.OFFVIS_ITS ---
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: No Accompanied by: Self / Same As Patient Allergies amoxicillin [AMOXICILLIN] Allergy (Unknown, Verified 12/05/23 06:40) RASH doxycycline [DOXYCYCLINE] Allergy (Unknown, Verified 12/05/23 06:40) NAUSEA /VOMITING penicillin V Allergy (Unknown, Verified 12/05/23 06:40) facial edema Sulfa (Sulfonamide Antibiotics) Allergy (Unknown, Verified 12/05/23 06:40) rash sulfamethoxazole [From BACTRIM] Allergy (Unknown, Verified 12/05/23 06:40) FACE SWELLING trimethoprim [From BACTRIM] Allergy (Unknown, Verified 12/05/23 06:40) FACE SWELLING atorvastatin Allergy (Verified 05/17/24 13:43) Rash minocycline [Minocin] Adverse Reaction (Unknown, Verified 12/05/23 06:40) GI upset/nausea Doxycycline Hyclate Adverse Reaction (Unknown, Uncoded 04/13/13 00:00) GI upset/nausea Medication List - Last Reconciled 08/03/24 by Giuseppe Parker MD aspirin 81 mg PO DAILY ezetimibe (Zetia) 10 mg PO DAILY folic acid 1 mg PO DAILY levothyroxine 75 mcg PO DAILY@0600 lisinopril 10 mg PO DAILY metoprolol tartrate 50 mg PO BID 90 days multivitamin (Daily-Armida tablet) 1 tab PO DAILY rosuvastatin 10 mg PO DAILY thiamine mononitrate (vit B1) 100 mg PO DAILY ticagrelor (Brilinta) 90 mg PO BID 90 days HPI Comments Details: 64-year-old female who is here for follow-up. She has background history of chronic anemia and presented to us in 11/25/2023 with NSTEMI on background of chronic alcoholism. Echocardiography was concerning for takotsubo cardiomyopathy but when she was taken for cardiac catheterization we noticed mid LAD plaque rupture which was treated with drug-eluting stent. Subsequently she had echocardiography which showed normal LVEF. She has been doing well. She is anemic and is being seen by Gastroenterology. She said she noticed her blood pressure to be low and she decrease the lisinopril from 20 mg to 10 mg. Blood pressure appears to be low today also. No other complaints currently. [facility] Medical History History of alcohol abuse Marijuana use Hypothyroidism Hyperlipidemia Hypertension Alcohol abuse Surgical History S/P cardiac catheterization Social History Household Members: Spouse Housing: House Do you presently have visiting nurse or other home services: No Alcohol intake: current Alcohol intake frequency: 0-2 drinks per day Alcohol type: wine Comment: 20 years, 2 bottles of wine per day Patient Tobacco Use Status: Never used Tobacco Second Hand Smoke Exposure: No Substance Use Type: Marijuana service: No Review of Systems Const Denies chills, Denies fatigue, Denies fever(s), Denies frequent falls, Denies weakness, Denies weight gain and Denies weight loss ENT Denies dizziness Card Denies chest pain, Denies leg edema, Denies lightheadedness, Denies palpitations, Denies dyspnea and Denies dyspnea on exertion Resp Denies cough, Denies dyspnea and Denies dyspnea on exertion GI Denies hematochezia Musc Denies abnormal gait, Denies muscle weakness, Denies numbness, Denies radiating pain into limb and Denies tingling Neuro Denies abnormal gait, Denies dizziness, Denies frequent falls, Denies numbness, Denies tingling and Denies weakness Endo Denies fatigue and Denies palpitations Physical Exam Vital Signs: Last Vital Signs Pulse 62 08/03/24 10:53 BP 100/60 08/03/24 10:53 BMI result Body Mass Index 24.8 GENERAL APPEARANCE: in no acute distress, pleasant. NECK: no carotid bruit, no jugular venous distention. SKIN: no suspicious lesions, warm and dry. HEART: no murmurs, regular rate and rhythm. LUNGS: clear to auscultation bilaterally. ABDOMEN: soft, nontender. EXTREMITIES: no edema. PERIPHERAL PULSES: equal. NEUROLOGIC: No gross deficits, AAO X 3 Office Procedures EKG Details: Sinus rhythm 62 beats per minute, normal axis, left ventricular hypertrophy, QTC 428 milliseconds. [id number], Complete Assessment & Plan Assessment & Plan (1) Anemia: Code(s): D64.9 - Anemia, unspecified Category: Medical Qualifiers: Anemia type: unspecified type Qualified Code(s): D64.9 - Anemia, unspecified (2) Stable angina: Code(s): I20.89 - Other forms of angina pectoris Category: Medical Plan Pleasant 64 year female who is here for follow-up. She has stable angina currently. Previous LAD PCI in 12/2023. She should stay on aspirin and Brilinta till 12/25/2024 but if there is any concerns for bleeding then we may have to consider monotherapy. She is due to get Gastroenterology consult and potential endoscopy in September. At that time Brilinta can be held and if there is any bleeding concerns picked up then I think we do not need to resume it and she can stay on aspirin monotherapy. If Gastroenterology felt that aspirin is to problematic then we can consider Plavix monotherapy and stop aspirin and Brilinta. We will decide further as she gets assessment by Gastroenterology. Blood pressure is low and I am decreasing the lisinopril to 5 mg daily. I have advised him to keep herself well hydrated. She is saying she does not drink lot of water. Thank you for allowing me to participate in the care of your patient. Please feel free to contact me if you have any questions. Medications: New lisinopril 5 mg PO DAILY 60 tabs 3RF Coding Level of Care Code Est Pt Level 4 (41340) Diagnoses Anemia, unspecified type D64.9 Anemia type: unspecified type Stable angina I20.89 CPT Codes EKG - CPT: [id number], Complete ([id number])
== END 2024-08-03 11:28 | disposition home or self-care (01) ==
PROVIDERS: PCP Internal Medicine; Visit Provider Internal Medicine Cardiovascular Disease
DX: D64.9 Anemia, unspecified (principal); I20.89 Other forms of angina pectoris
CPT/HCPCS: 93010; 99214

== ENCOUNTER → 2024-08-03 10:25 | Outpatient (BNVA) | payer OTHER, SELFPAY | PROVIDERS: PCP Internal Medicine; Visit Provider Internal Medicine Cardiovascular Disease | DX: D64.9 Anemia, unspecified (principal); I20.89 Other forms of angina pectoris | CPT/HCPCS: 93005; 99212 ==

== ENCOUNTER 2024-10-02 06:39 | Emergency (ER) | payer MEDICARE, SELFPAY ==
--- NOTE | ~2024-10-02 | US_ITS ---
CLINICAL HISTORY: abnormal LFTs US abdomen limited Comparison: None Findings: Pancreas appears within normal limits. Liver uniform echogenicity. Normal contour. Slight intrahepatic duct dilatation. Otherwise no focal abnormality. Normal contour. Distended gallbladder although not clearly hydropic. Wall thickness normal. No apparent stones. No sonographic Martinez's sign. Mild extrahepatic biliary dilatation with common bile duct 8.3 mm distally and 7 mm more proximally. May be physiologic or passive dilatation although correlation for elevation of bilirubin. Right kidney at 9.3 cm in length. Mild caliectasis. Possible small 4 mm midpole stone although not apparent on prior CT. IMPRESSION: Mild nonspecific biliary dilatation. May be passive, although correlation for any elevation of bilirubin. Distended gallbladder without stones or features of acute cholecystitis. Mild caliectasis right kidney and possible small stone. If right flank pain, consider stone protocol CT. This document has been electronically signed by: Olegario Perkins MD on 10/02/2024 11:37:26
[2024-10-02 06:42] VITALS: BP 154/87; PULSE 79; RESP 14; TEMP 36.3; O2SAT 100; BMI 23.8
[2024-10-02 07:15] LABS: Basophils Absolute Auto 0.1 X10*3/uL (0.0-0.2); Eosinophils Absolute Auto 0.4 X10*3/uL (0.0-0.4); Eosinophils Percent Auto 5.9 % (0-4); Hematocrit 27.7 % (37.0-47.0); Hemoglobin 9.5 g/dl (12.0-16.0); Imm Gran Abs Auto 0.02 X10*3/uL (0.00-0.03); Imm Gran Pct Auto 0.3 % (0.0-0.4); Lymphocytes Absolute Auto 2.5 X10*3/uL (1.2-4.9); Lymphocytes Percent Auto 42.8 % (20-40); MANUAL DIFF FLAG NO; Mean Corpuscular HGB Conc 34.3 g/dl (31.0-35.0); Mean Corpuscular Hemoglobin 32.8 pg (27.0-33.0); Mean Corpuscular Volume 95.5 fL (80.0-98.0); Mean Platelet Volume 9.8 fL (9.4-12.3); Monocytes Absolute Auto 0.7 X10*3/uL (0.1-1.2); Neutrophils Absolute Auto 2.3 x10*3/uL (2.0-8.3); Platelet Count 305 X10*3/uL (160-400); Red Cell Distribution Width 13.8 % (11.0-16.0); White Blood Count 5.9 X10*3/uL (4.8-10.8)
[2024-10-02 07:17] LABS: Appearance Urine Clear; Color Urine Yellow; Glucose Urine UA Negative (Negative); Leukocyte Esterase Urine Negative (Negative); Nitrite Urine Negative (Negative); UMIC TRIGGER UACC YES; Urine Blood Negative (Negative); Urine Ketones Negative (Negative); Urine Protein 30 (1+) mg/dL (Neg-Trace)
[2024-10-02 07:36] LABS: Bacteria Urine None Seen (None Seen); Granular Casts Urine Present; RBC Urine 0-2 /HPF (0-2); WBC Urine 0-5 /HPF (0-5)
[2024-10-02 07:49] LABS: Alanine Aminotransferase 193 U/L (0-31); Albumin Level 4.3 g/dL (3.5-5.0); Alkaline Phosphatase 156 U/L (39-117); Anion Gap 17 (12-20); Aspartate Amino Transferase 208 U/L (5-31); Bilirubin Total 0.3 mg/dL (0.0-1.0); Blood Urea Nitrogen 16 mg/dL (9-16); Calcium 11.1 mg/dL (8.4-10.2); Carbon Dioxide 20 mmol/L (22-29); Chloride 107 mmol/L (96-108); Creatinine Clr Calc Pharmacy 25.1; Estimated Glomerular Filt Rate 30; Glucose Random 94 mg/dL (60-115); Potassium 4.1 mmol/L (3.3-5.1); Sodium 140 mmol/L (135-145); Total Protein 7.6 g/dL (6.5-8.0)
--- NOTE | 2024-10-02 08:37 | ED.RECABL ---
HPI - Recheck/Abnormal Lab/Rx General Chief Complaint: Recheck/Abnormal Lab/Rx Stated Complaint: [facility] come [facility], Abnormal Labs Time Seen by Provider: 10/02/24 08:37 Source: patient Mode of arrival: ambulatory Limitations: no limitations History of Present Illness ED Provider: Juana Webb PA-C HPI narrative: 64 yo female with history of ETOH use/abuse, NSTEMI, anemia, who presents to the ER for evaluation of abnormal routine outpatient labs that were done at the [facility] 12 days ago. Her provider was away and she just got the phone call last night telling her to go to the ER because of abnormal kidney and liver function. She states her liver enzymes were 299 and her BUN/Cr 34/2.8. She states she has had ARAM in the past that was thought to be due to dehydration. She reports suffering from chronic N/V and does not think she drinks enough water. She states the last time she threw up was last week. Otherwise she is feeling well. No abdominal pains, urinary symptoms, diarrhea, fever, chills. She feels fine. She previously used to drink 2 bottles of wine per day and now is drinking 1 glass of wine on occasion. She is not daily drinking anymore. complaint: abnormal lab Initial visit (ago): day(s) () Returns today for: called because of abnormal lab/test Symptoms since prior visit: no new symptoms Associated symptoms: none Related Data Home Medications ?Medication ?Instructions ?Recorded ?Confirmed levothyroxine 88 mcg tablet 75 mcg PO DAILY@0600 03/22/24 08/03/24 Previous Rx's ?Medication ?Instructions ?Recorded aspirin 81 mg chewable tablet 81 mg PO DAILY #30 tabs 12/07/23 folic acid 1 mg tablet 1 mg PO DAILY #30 tabs 12/07/23 multivitamin (Daily-Armida tablet) 1 tab PO DAILY #30 tabs 12/07/23 thiamine mononitrate (vit B1) 100 100 mg PO DAILY #30 tabs 12/07/23 mg tablet ticagrelor 90 mg tablet (Brilinta) 90 mg PO BID 90 days #180 tabs 01/04/24 metoprolol tartrate 50 mg tablet 50 mg PO BID 90 days #180 tabs 02/24/24 rosuvastatin 10 mg tablet 10 mg PO DAILY #30 tabs 05/17/24 ezetimibe 10 mg tablet (Zetia) 10 mg PO DAILY #90 tabs 08/01/24 lisinopril 5 mg tablet 5 mg PO DAILY #60 tabs 08/03/24 Allergies Allergy/AdvReac Type Severity Reaction Status Date / Time amoxicillin [AMOXICILLIN] Allergy Unknown RASH Verified 10/02/24 06:46 doxycycline [DOXYCYCLINE] Allergy Unknown NAUSEA Verified 10/02/24 06:46 /VOMITING penicillin V Allergy Unknown facial Verified 10/02/24 06:46 edema Sulfa (Sulfonamide Allergy Unknown rash Verified 10/02/24 06:46 Antibiotics) sulfamethoxazole Allergy Unknown FACE Verified 10/02/24 06:46 [From BACTRIM] SWELLING trimethoprim [From BACTRIM] Allergy Unknown FACE Verified 10/02/24 06:46 SWELLING atorvastatin Allergy Rash Verified 10/02/24 06:46 minocycline [Minocin] AdvReac Unknown GI Verified 10/02/24 06:46 upset/nausea Doxycycline Hyclate AdvReac Unknown GI Uncoded 04/13/13 00:00 upset/nausea Review of Systems Review of Systems: Yes all other systems are reviewed and are negative [facility] Past Medical History Medical History History of alcohol abuse Marijuana use Hypothyroidism Hyperlipidemia Hypertension Alcohol abuse Surgical History S/P cardiac catheterization Social History Social History Household Members: Spouse Housing: House Do you presently have visiting nurse or other home services: No Alcohol intake: current Alcohol intake frequency: 0-2 drinks per day Alcohol type: wine Comment: 20 years, 2 bottles of wine per day Patient Tobacco Use Status: Never used Tobacco Second Hand Smoke Exposure: No Substance Use Type: Marijuana Do you have a plan to hurt others: No Plan service: No Physical Exam Vital Signs: Vital Signs: Last Vital Signs Temp 97.4 F 10/02/24 06:42 Pulse 79 10/02/24 06:42 Resp 14 10/02/24 06:42 BP 154/87 H 10/02/24 06:42 Pulse Ox 100 10/02/24 06:42 O2 Del Method Room Air 10/02/24 06:42 BMI result Body Mass Index 23.8 Appearance: Alert. Oriented X3. No acute distress. Head: normocephalic, atraumatic. Eyes: Pupils equal, round and reactive to light. ENT: Pharynx normal. No tonsillar swelling or exudate. Neck: Normal inspection. Neck supple. CVS: Normal heart rate and rhythm. Pulses normal. Respiratory: No respiratory distress. Breath sounds normal. Abdomen: Soft and nontender. +BS x4. negative martinez's sign Skin: Skin warm and dry. Normal skin color. Normal skin turgor. No rashes. Extremities: No lower extremity edema. No joint swelling. Neuro/psych: Oriented X 3. Grossly normal, nonfocal. Normal speech and cognition. Medical Decision Making Medical Decision Making MDM Narrative: 64-year-old female with a history alcohol abuse, anemia, NSTEMI in the past with ARAM who presents to the ER for evaluation of abnormal lab work on routine blood work 12 days ago at the [facility]. She is asymptomatic and feels well. She had elevated LFTs and a creatinine of 2.8. Upon review of her prior outpatient labs it appears she has some chronic kidney disease. Her last serum creatinine was 1.51 in March. She has elevation of her transaminases and alk-phos with normal bilirubin. Her outpatient LFTs were in the high 200s. Overall trending down. She has no right upper quadrant pain. Right upper quadrant ultrasound was done which does not show any evidence of cholecystitis, no biliary duct obstruction although there is some mild dilatation distally of the CBD. This can be followed up as an outpatient. She is clinically stable without any symptoms at this time. Patient stable for discharge home with outpatient follow-up with her doctor as well as Nephrology. She has seen Dr. Patel in the past during admission here for ARAM Differential Diagnosis Differential Diagnoses: The differential diagnosis associated with the presentation includes ARAM on CKD, alcoholic cirrhosis, alcoholic hepatitis, dehydration, gastroenteritis, hepatorenal syndrome Admission/Observation Consideration of admission/observation: Escalation of care including admission/observation considered Lab Data [facility] Lab Attestation statement: I reviewed the patient's lab results. Anemia, CKD, transaminitis 10/02/24 07:10 10/02/24 07:10 Labs: Lab Results 10/02/24 10/02/24 Range/Units 07:10 07:11 WBC 5.9 (4.8-10.8) X10*3/uL RBC 2.90 L (4.20-5.50) X10*6/uL Hgb 9.5 L (12.0-16.0) g/dl Hct 27.7 L (37.0-47.0) % MCV 95.5 (80.0-98.0) fL MCH 32.8 (27.0-33.0) pg MCHC 34.3 (31.0-35.0) g/dl RDW 13.8 (11.0-16.0) % Plt Count 305 D (160-400) X10*3/uL MPV 9.8 (9.4-12.3) fL Immature Gran % (Auto) 0.3 (0.0-0.4) % Neut % (Auto) 38.0 L (45-73) % Lymph % (Auto) 42.8 H (20-40) % [place] % (Auto) 12.0 H (2-11) % Eos % (Auto) 5.9 H (0-4) % Baso % (Auto) 1.0 (0-2) % Lymph # (Auto) 2.5 (1.2-4.9) X10*3/uL [place] # (Auto) 0.7 (0.1-1.2) X10*3/uL Eos # (Auto) 0.4 (0.0-0.4) X10*3/uL Baso # (Auto) 0.1 (0.0-0.2) X10*3/uL Abs Immat Gran (auto) 0.02 (0.00-0.03) X10*3/uL Absolute Neuts (auto) 2.3 (2.0-8.3) x10*3/uL Absolute Nucleated RBC 0.000 (0.0-0.012) X10*3/uL Nucleated RBC % (auto) 0.0 (0.0-0.2) /100WBC Sodium 140 (135-145) mmol/L Potassium 4.1 (3.3-5.1) mmol/L Chloride 107 (96-108) mmol/L Carbon Dioxide 20 L (22-29) mmol/L Anion Gap 17 (12-20) BUN 16 (9-16) mg/dL Creatinine 1.72 H (0.5-1.4) mg/dL Estim Creat Clear Calc 25.1 Estimated GFR 30 Random Glucose 94 (60-115) mg/dL Calcium 11.1 H D (8.4-10.2) mg/dL Magnesium 1.6 (1.6-2.6) mg/dL Total Bilirubin 0.3 (0.0-1.0) mg/dL AST 208 H (5-31) U/L ALT 193 H (0-31) U/L Alkaline Phosphatase 156 H (39-117) U/L Total Protein 7.6 (6.5-8.0) g/dL Albumin 4.3 (3.5-5.0) g/dL Urine Color Yellow Urine Appearance Clear Urine pH 5.0 (5.0-9.0) Ur Specific [place] 1.010 (1.005-1.025) Urine Protein 30 (1+) H (Neg-Trace) mg/dL Urine Glucose (UA) Negative (Negative) mg/dL Urine Ketones Negative (Negative) mg/dL Urine Blood Negative (Negative) Urine Nitrite Negative (Negative) Ur Leukocyte Esterase Negative (Negative) Urine RBC 0-2 (0-2) /HPF Urine WBC 0-5 (0-5) /HPF Ur Squamous Epith Cells 6-10 (0-2) /HPF Urine Bacteria None Seen (None Seen) Hyaline Casts 3-5 (0-2) /LPF Granular Casts Present Independent Interpretation I performed an independent interpretation of an: Ultrasound Interpretation: No visible stones in the gallbladder, normal appearance of the gallbladder wall Radiology Impression Discussion of test interpretation with radiology: I have reviewed the radiologist's reading. Radiologist Impression: CLINICAL HISTORY: abnormal LFTs US abdomen limited Comparison: None Findings: Pancreas appears within normal limits. Liver uniform echogenicity. Normal contour. Slight intrahepatic duct dilatation. Otherwise no focal abnormality. Normal contour. Distended gallbladder although not clearly hydropic. Wall thickness normal. No apparent stones. No sonographic Martinez's sign. Mild extrahepatic biliary dilatation with common bile duct 8.3 mm distally and 7 mm more proximally. May be physiologic or passive dilatation although correlation for elevation of bilirubin. Right kidney at 9.3 cm in length. Mild caliectasis. Possible small 4 mm midpole stone although not apparent on prior CT. IMPRESSION: Mild nonspecific biliary dilatation. May be passive, although correlation for any elevation of bilirubin. Distended gallbladder without stones or features of acute cholecystitis. Mild caliectasis right kidney and possible small stone. External Record Review External record reviewed: Inpatient record, Outpatient record, Prior outpatient labs and Prior outpatient radiology Prescription Management I considered prescription management with: Pain Medication Chronic Conditions Patient?s care impacted by: Other (CKD, ETOH use) Critical Care Time Critical Care Time Critical Care Time: No Discharge Plan Discharge Clinical Impression: Elevated liver enzymes Chronic kidney disease Qualifiers: Chronic kidney disease stage: unspecified stage Qualified Code(s): N18.9 - Chronic kidney disease, unspecified Patient Disposition: Home, Self-Care Instructions: Chronic Kidney Disease (ED), Alcoholic Hepatitis (ED) Additional Instructions: Your kidney function improved to near your baseline. It appears like you have chronic kidney disease based on your prior and current lab tests. Recommend following up with Nephrology. Make sure you are eating plenty of protein and staying hydrated. DO NOT DRINK ALCOHOL - this can make both liver and kidney function worse. Follow up with your doctor If you develop new or worsening symptoms call 911 or come back to the ER for further evaluation. Prescriptions: No Action Brilinta 90 mg tablet 90 mg PO BID 90 Days Qty: 180 3RF metoprolol tartrate 50 mg tablet 50 mg PO BID 90 Days Qty: 180 3RF rosuvastatin 10 mg tablet 10 mg PO DAILY Qty: 30 4RF ezetimibe [Zetia] 10 mg tablet 10 mg PO DAILY Qty: 90 3RF multivitamin [Daily-Armida] Tablet 1 tab PO DAILY Qty: 30 0RF aspirin 81 mg Tablet,Chewable 81 mg PO DAILY Qty: 30 0RF folic acid 1 mg Tablet 1 mg PO DAILY Qty: 30 0RF thiamine mononitrate (vit B1) 100 mg Tablet 100 mg PO DAILY Qty: 30 0RF levothyroxine 88 mcg tablet 75 mcg PO DAILY@0600 lisinopril 5 mg tablet 5 mg PO DAILY Qty: 60 3RF Print Language: Lao
[2024-10-02 09:06] LABS: Magnesium 1.6 mg/dL (1.6-2.6)
[2024-10-02 12:06] VITALS: BP 154/87; PULSE 79; RESP 14; TEMP 36.3; O2SAT 100
== END 2024-10-02 12:06 | disposition home or self-care (01) ==
PROVIDERS: Physician Assistant; Emergency Provider Emergency Medicine; PCP Nurse Practitioner Family
DX: R79.89 Other specified abnormal findings of blood chemistry (principal); R74.01 Elevation of levels of liver transaminase levels; I12.9 Hypertensive chronic kidney disease with stage 1 through stage 4 chronic kidney disease, or unspecified chronic kidney disease; N18.9 Chronic kidney disease, unspecified; Z79.899 Other long term (current) drug therapy
CPT/HCPCS: 36415; 76705; 80053; 81001; 83735; 85025; 99282; 99284

== ENCOUNTER → 2024-10-02 08:37 | Outpatient (BNV) | payer MEDICARE, SELFPAY | PROVIDERS: Emergency Provider Emergency Medicine; PCP Nurse Practitioner Family; Visit Provider Radiology Diagnostic Radiology | DX: K82.8 Other specified diseases of gallbladder (principal) | CPT/HCPCS: 76705 ==

== ENCOUNTER 2024-11-30 13:22 | Outpatient (AMB) | payer OTHER, SELFPAY ==
--- NOTE | 2024-11-30 13:50 | A.OFFVIS_ITS ---
Vital Signs 11/30/24 13:54 Height 5 ft Weight 124 lb 5.451 oz BMI 24.3 BP 140/70 H Blood Pressure Location Rt brachial Position Sitting Pulse 86 Pulse Source Pulse Oximeter Intake Visit Reasons: 4m follow up Intake Note: 4 tmh f/[employer] Specialist Required: No Accompanied by: Self / Same As Patient Allergies amoxicillin [AMOXICILLIN] Allergy (Unknown, Verified 10/02/24 06:46) RASH doxycycline [DOXYCYCLINE] Allergy (Unknown, Verified 10/02/24 06:46) NAUSEA /VOMITING penicillin V Allergy (Unknown, Verified 10/02/24 06:46) facial edema Sulfa (Sulfonamide Antibiotics) Allergy (Unknown, Verified 10/02/24 06:46) rash sulfamethoxazole [From BACTRIM] Allergy (Unknown, Verified 10/02/24 06:46) FACE SWELLING trimethoprim [From BACTRIM] Allergy (Unknown, Verified 10/02/24 06:46) FACE SWELLING atorvastatin Allergy (Verified 10/02/24 06:46) Rash minocycline [Minocin] Adverse Reaction (Unknown, Verified 10/02/24 06:46) GI upset/nausea Doxycycline Hyclate Adverse Reaction (Unknown, Uncoded 04/13/13 00:00) GI upset/nausea Medication List - Last Reconciled 11/30/24 by Giuseppe Parker MD aspirin 81 mg PO DAILY ezetimibe (Zetia) 10 mg PO DAILY levothyroxine 75 mcg PO DAILY@0600 lisinopril 5 mg PO DAILY metoprolol tartrate 50 mg PO BID 90 days multivitamin (Daily-Armida tablet) 1 tab PO DAILY rosuvastatin 10 mg PO DAILY ticagrelor (Brilinta) 90 mg PO BID 90 days HPI Comments Details: 64-year-old female who is here for follow-up. She has background history of chronic anemia and presented to us in 11/25/2023 with NSTEMI on background of chronic alcoholism. Echocardiography was concerning for takotsubo cardiomyopathy but when she was taken for cardiac catheterization we noticed mid LAD plaque rupture which was treated with drug-eluting stent. Subsequently she had echocardiography which showed normal LVEF. She has been doing well. She is anemic and is being seen by Gastroenterology. She said she noticed her blood pressure to be low and she decrease the lisinopril from 20 mg to 10 mg. Blood pressure appears to be low today also. No other complaints currently. 11/30/2024: She is here for follow-up. She has been doing well. No chest pain or shortness breath. She is undergoing GI workup and we will wean in doing co lonoscopy at end of December. She is asking can Brilinta be stopped before the colonoscopy. [facility] Medical History History of alcohol abuse Marijuana use Hypothyroidism Hyperlipidemia Hypertension Alcohol abuse Surgical History S/P cardiac catheterization Social History Household Members: Spouse Housing: House Do you presently have visiting nurse or other home services: No Alcohol intake: current Alcohol intake frequency: 0-2 drinks per day Alcohol type: wine Comment: 20 years, 2 bottles of wine per day Patient Tobacco Use Status: Never used Tobacco Second Hand Smoke Exposure: No Substance Use Type: Marijuana service: No Review of Systems Const Denies chills, Denies fatigue, Denies fever(s), Denies frequent falls, Denies weakness, Denies weight gain and Denies weight loss ENT Denies dizziness Card Denies chest pain, Denies leg edema, Denies lightheadedness, Denies palpitations, Denies dyspnea and Denies dyspnea on exertion Resp Denies cough, Denies dyspnea and Denies dyspnea on exertion GI Denies hematochezia Musc Denies abnormal gait, Denies muscle weakness, Denies numbness, Denies radiating pain into limb and Denies tingling Neuro Denies abnormal gait, Denies dizziness, Denies frequent falls, Denies numbness, Denies tingling and Denies weakness Endo Denies fatigue and Denies palpitations Physical Exam Vital Signs: Last Vital Signs Pulse 86 11/30/24 13:54 BP 140/70 H 11/30/24 13:54 BMI result Body Mass Index 24.3 GENERAL APPEARANCE: in no acute distress, pleasant. NECK: no carotid bruit, no jugular venous distention. SKIN: no suspicious lesions, warm and dry. HEART: no murmurs, regular rate and rhythm. LUNGS: clear to auscultation bilaterally. ABDOMEN: soft, nontender. EXTREMITIES: no edema. PERIPHERAL PULSES: equal. NEUROLOGIC: No gross deficits, AAO X 3 Assessment & Plan Assessment & Plan (1) Hypertension: Code(s): I10 - Essential (primary) hypertension Category: Medical (2) Coronary artery disease: Code(s): I25.10 - Atherosclerotic heart disease of [place] coronary artery without angina pectoris Category: Medical Plan Pleasant 64 year female who is here for follow-up. She has been doing well. She had LAD PCI last 12/26/2023 she is on aspirin and Brilinta at this point. She will need colonoscopy in December. I think she can stop the Brilinta starting next month and can stay on aspirin monotherapy. I have advised her not to stop the aspirin unless it is absolutely required. Continue beta-marc and this should also not be stopped in the perioperative period. Clinically stable and will see us back in 6 months. Thank you for allowing me to participate in the care of your patient. Please feel free to contact me if you have any questions. Coding Level of Care Code Est Pt Level 4 (02346) Complex EM visit Add On G2211 Diagnoses Hypertension I10 Coronary artery disease I25.10
[2024-11-30 13:54] VITALS: BP 140/70; PULSE 86; BMI 24.3
== END 2024-11-30 14:26 | disposition home or self-care (01) ==
LOC: HO.HCS 13:22
PROVIDERS: PCP Internal Medicine; Visit Provider Internal Medicine Cardiovascular Disease
DX: I10 Essential (primary) hypertension (principal); I25.10 Atherosclerotic heart disease of native coronary artery without angina pectoris
CPT/HCPCS: 99214; G2211

== ENCOUNTER → 2024-11-30 13:22 | Outpatient (BNVA) | payer OTHER, SELFPAY | PROVIDERS: PCP Internal Medicine; Visit Provider Internal Medicine Cardiovascular Disease | DX: I25.10 Atherosclerotic heart disease of native coronary artery without angina pectoris (principal); I10 Essential (primary) hypertension | CPT/HCPCS: 99212 ==

== ENCOUNTER 2024-12-21 17:32 | Inpatient (IN) | payer MEDICARE, SELFPAY ==
[2024-12-21 17:44] VITALS: BP 188/102; PULSE 121; O2SAT 98
[2024-12-21 17:49] VITALS: BP 212/121; PULSE 117; RESP 20; TEMP 36.8; O2SAT 98; BMI 27.4
--- NOTE | 2024-12-21 17:59 | ED.PSYCH ---
HPI - Psych General Chief Complaint: Psychiatric Symptoms Stated Complaint: ETOH, SI with plan Time Seen by Provider: 12/21/24 17:46 Source: patient and EMS Mode of arrival: EMS Limitations: no limitations History of Present Illness ED Provider: Dr. Emily Angel HPI Narrative: Patient comes in the emergency room via ambulance. According to EMS, the patient's son called 911 because the patient attempted to commit suicide by ingesting an unknown amount of metoprolol. Patient states that she did try to kill herself but her son saw this happening and he immediately made her spit all the tablets out. Patient states that she did not swallow anything. Patient states that she wants to kill herself . Patient states that she is so tired of taking care of her with Parkinson's at home without any help. Also, patient known to abuse alcohol. Related Data Home Medications ?Medication ?Instructions ?Recorded ?Confirmed levothyroxine 88 mcg tablet 50 mcg PO DAILY@0600 03/22/24 12/21/24 ezetimibe 10 mg tablet (Zetia) 10 mg PO BEDTIME 12/21/24 12/21/24 Previous Rx's ?Medication ?Instructions ?Recorded aspirin 81 mg chewable tablet 81 mg PO DAILY #30 tabs 12/07/23 multivitamin (Daily-Armida tablet) 1 tab PO DAILY #30 tabs 12/07/23 metoprolol tartrate 50 mg tablet 50 mg PO BID 90 days #180 tabs 02/24/24 lisinopril 5 mg tablet 5 mg PO DAILY #60 tabs 08/03/24 rosuvastatin 10 mg tablet 10 mg PO DAILY #90 tabs 10/25/24 Allergies Allergy/AdvReac Type Severity Reaction Status Date / Time amoxicillin [AMOXICILLIN] Allergy Unknown RASH Verified 12/21/24 17:59 doxycycline [DOXYCYCLINE] Allergy Unknown NAUSEA Verified 12/21/24 17:59 /VOMITING penicillin V Allergy Unknown facial Verified 12/21/24 17:59 edema Sulfa (Sulfonamide Allergy Unknown rash Verified 12/21/24 17:59 Antibiotics) sulfamethoxazole Allergy Unknown FACE Verified 12/21/24 17:59 [From BACTRIM] SWELLING trimethoprim [From BACTRIM] Allergy Unknown FACE Verified 12/21/24 17:59 SWELLING atorvastatin Allergy Rash Verified 12/21/24 17:59 minocycline [Minocin] AdvReac Unknown GI Verified 12/21/24 17:59 upset/nausea Doxycycline Hyclate AdvReac Unknown GI Uncoded 12/21/24 17:59 upset/nausea Review of Systems Review of Systems: Constitutional : No Weight loss, No Fever, No Chills, No Night Sweats, No Fatigue, No Malaise ENT/Mouth : No Hearing loss, No Ear Pain, No Nasal Congestion, No Sinus Pain, No Hoarseness, No sore throat, No Rhinorrhea, No Swallowing Difficulty Eyes: No Eye Pain, No Swelling, No Redness, No Foreign Body, No Discharge, No Vision Changes Cardiovascular : No Chest Pain, No SOB, No Dyspnea on Exertion, No Orthopnea, No Edema, No Palpitations Respiratory : No Cough, No Sputum, No Wheezing, No Smoke Exposure, No Dyspnea Gastrointestinal : No Nausea, No Vomiting, No Diarrhea, No Constipation, No abdominal Pain, No Hematochezia, No Melena Genitourinary : no irregular bleeding, No Dysuria, No Urinary Frequency, No Hematuria, No Urinary Incontinence, No Urgency, No Flank Pain, No Urinary Flow Changes, No Hesitancy Musculoskeletal : No joint pain, No Myalgias, No Joint Swelling Skin : No Skin Lesions, No rash Neuro : No Weakness, No Numbness, No Paresthesias, No Loss of Consciousness, No Dizziness, No Headache Psych : Admits to suicide attempt, depression, no homicidal ideation, admits to heavily drinking alcohol Heme/Lymph: No Bruising, No Bleeding,No Lymphadenopathy Endocrine : No Polyuria, No Polydipsia, No Temperature Intolerance PMFSH Past Medical History Medical History History of alcohol abuse Marijuana use Hypothyroidism Hyperlipidemia Hypertension Alcohol abuse Surgical History S/P cardiac catheterization Social History Social History Household Members: Spouse Housing: House Do you presently have visiting nurse or other home services: No Alcohol intake: current Alcohol intake frequency: 0-2 drinks per day Alcohol type: wine Comment: 20 years, 2 bottles of wine per day Patient Tobacco Use Status: Never used Tobacco Smoked in Last 30 Days: No Second Hand Smoke Exposure: No Use of substances other than those prescribed or required for medical reasons: No Substance Use Type: Marijuana Advance Directives: No Advance Directives Information Provided: No service: No Physical Exam Vital Signs: Vital Signs: Last Vital Signs Temp 97.8 F 12/21/24 23:21 Pulse 86 12/22/24 07:58 Resp 16 12/22/24 06:06 BP 120/63 12/22/24 07:58 Pulse Ox 100 12/21/24 23:21 O2 Del Method Room Air 12/21/24 23:21 BMI result Body Mass Index 27.4 Const: Other: Appearance: Alert. Oriented X3. No acute distress. Eyes: Pupils equal, round and reactive to light. ENT: Pharynx normal. Neck: Normal inspection. Neck supple. No lymph nodes noted. No crepitus CVS: Normal heart rate and rhythm. Pulses normal. Normal S1 and S2 Respiratory: No respiratory distress. Breath sounds normal. No Wheezing. No rales Abdomen: Soft and nontender. No rigidity. No distention. Skin: Skin warm and dry. Normal skin color. Normal skin turgor. Extremities: No lower extremity edema. No Lacerations. No Rash Neuro: Oriented X 3. No motor deficit. No sensory deficit. Moving all extremities. No slurred speech. CN 2 through 12 grossly intact Psych: Anxious, patient is clearly intoxicated. Admits that she wants to kill herself. Course Course Course Narrative: All of patient's labs pending Care team consult pending Patient is hypotensive and tachycardic, per patient , she did not take any of her metoprolol pills and spit him all out Reevaluation(s) Reevaluation #1: Time: 11:25 Date: 12/22/24 Provider: Genna Squires DO Physician observation ended at 1126am. Patient to be admitted as inpatient to psychiatry. Medications Administered Generic Name Dose Route Start Last Admin Trade Name Freq PRN Reason Stop Dose Admin Aspirin 81 mg 12/22/24 09:00 12/22/24 07:58 Aspirin 81 Mg Tab.Chew PO 81 mg DAILY ARMOND Administration Atorvastatin Calcium 40 mg 12/22/24 09:00 12/22/24 07:58 Atorvastatin Calcium 40 Mg Tablet PO 40 mg DAILY ARMOND Administration Ezetimibe 10 mg 12/22/24 21:00 12/22/24 00:01 Ezetimibe 10 Mg Tablet PO 10 mg BEDTIME ARMOND Administration Levothyroxine Sodium 50 mcg 12/22/24 06:00 12/22/24 07:18 Levothyroxine Sodium 50 Mcg Tablet PO 50 mcg DAILY@0600 [facility] Administration Lisinopril 5 mg 12/22/24 09:00 12/22/24 07:58 Lisinopril 5 Mg Tablet PO 5 mg DAILY ARMOND Administration Protocol Metoprolol Tartrate 50 mg 12/22/24 09:00 12/22/24 07:58 Metoprolol Tartrate 50 Mg Tablet PO 50 mg BID ARMOND Administration Protocol Multivitamins/Vitamin C 1 tab 12/22/24 09:00 12/22/24 07:58 Multivitamin Tablet PO 1 tab DAILY ARMOND Administration Discontinued Medications Generic Name Dose Route Start Last Admin Trade Name [place] PRN Reason Stop Dose Admin Amlodipine Besylate 10 mg 12/21/24 20:49 12/21/24 21:16 Amlodipine Besylate 10 Mg Tablet PO 12/21/24 20:50 10 mg ONCE ONE Administration Protocol Omeprazole 20 mg 12/22/24 08:49 12/22/24 08:57 Omeprazole [address] FRAZIER 12/22/24 08:50 20 mg ONCE ONE Administration Medical Decision Making Medical Decision Making [facility] Narrative: My interpretation of labs: No significant abnormality in patient's hematology and chemistry. Patient's white blood cell count is 11.3, likely reactive leukocytosis, patient does not have any complaints of infection, no significant abnormality in patient's electrolytes, AST and ALT are chronically elevated. Salicylates and acetaminophen levels negative. ETOH levels 467 Patient is ready to go to the Behavioral Health pod, ready for care team assessment It is possible that patient may need a case management consult as well, patient states that she has no help caring for her elderly that has Parkinson's. 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 Patient may not be able to care for her , patient is struggling with alcohol, anxiety and depression. Differential Diagnosis Differential Diagnoses: The differential diagnosis associated with the presentation includes (Polysubstance abuse, alcohol abuse, anxiety, depression) Admission/Observation Consideration of admission/observation: Escalation of care including admission/observation considered (Patient is waiting to be seen by the care team to determine patient's disposition) Lab Data [facility] Lab Attestation statement: I reviewed the patient's lab results. 12/21/24 18:32 12/21/24 18:32 Labs: Lab Results 12/21/24 12/21/24 12/21/24 Range/Units 08:24 18:32 20:56 WBC 11.3 H (4.8-10.8) X10*3/uL RBC 3.19 L (4.20-5.50) X10*6/uL Hgb 10.3 L (12.0-16.0) g/dl Hct 30.7 L (37.0-47.0) % MCV 96.2 (80.0-98.0) fL MCH 32.3 (27.0-33.0) pg MCHC 33.6 (31.0-35.0) g/dl RDW 13.0 (11.0-16.0) % Plt Count 351 (160-400) X10*3/uL MPV 9.2 L (9.4-12.3) fL Immature Gran % (Auto) 0.8 H (0.0-0.4) % Neut % (Auto) 53.1 (45-73) % Lymph % (Auto) 39.1 (20-40) % [place] % (Auto) 5.4 (2-11) % Eos % (Auto) 0.4 (0-4) % Baso % (Auto) 1.2 (0-2) % Lymph # (Auto) 4.4 (1.2-4.9) X10*3/uL [place] # (Auto) 0.6 (0.1-1.2) X10*3/uL Eos # (Auto) 0.0 (0.0-0.4) X10*3/uL Baso # (Auto) 0.1 (0.0-0.2) X10*3/uL Abs Immat Gran (auto) 0.09 H (0.00-0.03) X10*3/uL Absolute Neuts (auto) 6.0 (2.0-8.3) x10*3/uL Absolute Nucleated RBC 0.000 (0.0-0.012) X10*3/uL Nucleated RBC % (auto) 0.0 (0.0-0.2) /100WBC Sodium 133 L (135-145) mmol/L Potassium 4.8 (3.3-5.1) mmol/L Chloride 101 (96-108) mmol/L Carbon Dioxide 12 L (22-29) mmol/L Anion Gap 25 H (12-20) BUN 27 H (9-16) mg/dL Creatinine 1.34 (0.5-1.4) mg/dL Estim Creat Clear Calc 37.3 Estimated GFR 40 Random Glucose 76 (60-115) mg/dL Calcium 9.3 D (8.4-10.2) mg/dL Magnesium 2.0 (1.6-2.6) mg/dL Total Bilirubin 0.3 (0.0-1.0) mg/dL Direct Bilirubin 0.1 (0.0-0.5) mg/dL AST 175 H (5-31) U/L ALT 145 H (0-31) U/L Alkaline Phosphatase 167 H (39-117) U/L Troponin I High Sens 5.1 D (<3.5-17.0) ng/L Total Protein 7.7 (6.5-8.0) g/dL Albumin 4.6 (3.5-5.0) g/dL Urine Color Yellow Urine Appearance Clear Urine pH 5.0 (5.0-9.0) Ur Specific [place] 1.010 (1.005-1.025) Urine Protein Trace (Neg-Trace) mg/dL Urine Glucose (UA) Negative (Negative) mg/dL Urine Ketones Trace (Negative) mg/dL Urine Blood Negative (Negative) Urine Nitrite Negative (Negative) Ur Leukocyte Esterase Trace H (Negative) Urine RBC 0-2 (0-2) /HPF Urine WBC 0-5 (0-5) /HPF Ur Squamous Epith Cells 3-5 (0-2) /HPF Urine Bacteria None Seen (None Seen) Hyaline Casts 3-5 (0-2) /LPF Salicylates < 5.0 L (15-30) mg/dL Urine Opiates Screen Not Detected (Not Detect) Ur Buprenorphine Scrn Not Detected (Not Detect) ng/mL Ur Oxycodone Screen Not Detected (Not Detect) ng/mL Urine Methadone Screen Not Detected (Not Detect) ng/mL Urine Fentanyl Screen Not Detected (Not Detect) Acetaminophen < 3 (<30) mcg/mL Ur Barbiturates Screen Not Detected (Not Detect) Ur Phencyclidine Scrn Not Detected (Not Detect) Ur Amphetamines Screen Not Detected (Not Detect) U Benzodiazepines Scrn Not Detected (Not Detect) Urine Cocaine Screen Not Detected (Not Detect) U Marijuana (THC) Screen Not Detected (Not Detect) Ethyl Alcohol 467 H* mg/dL Critical Care Time Critical Care Time Critical Care Time: Yes Total Critical Care Time: 60 Attestation: I have personally provided critical care time. Time includes review of lab data, radiology results, discussion with consultants, and monitoring for potential decompensation. Intervention performed as documented. Discharge Plan Discharge Clinical Impression: Suicide attempt, Alcohol intoxication Patient Disposition: Admitted As Inpatient Interventions: Jack-Suicide Risk Severity Scale Last Done: 12/22/24 08:49
[2024-12-21 18:16] VITALS: BP 170/87; PULSE 100; RESP 19; TEMP 36.8; O2SAT 100
--- NOTE | 2024-12-21 18:18 | MHC.EDTECH ---
When pt arrived to ED2 upon pt ambulating from wheelchair to bed, pt had fallen over onto floor and landed on her tailbone stating i'm just drunk , -HS, -LOC. pt was able to stand on her own after and ambulate to bed. display decorator was made aware of incident.
[2024-12-21 18:40] LABS: MANUAL DIFF FLAG NO
--- OUTSIDE RECORDS SUMMARY | 2024-12-21 18:43 | XMS_ITS ---
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 Name Role Phone Alec COLEMAN, Shazia Primary Care Provider Unavail able Emerson Norris Unavailable [phone] REASON FOR VISIT [facility] referral Encounters Encounter Location Date Provider Diagnosis [facility] [address] [place] [id number] 09/30/2024 Emerson Norris Plan Of Treatment Next Appt Details Provider Name:Emerson Norris , 01/04/2025 10:30:00 AM, [address] [place] [address] , [place], [place], [phone], Progress Notes * HANS JACOBYDOB: (64 yo F)Acc No.[id number]:09/30/2024 Patient:?JACOBY MAXWELL :1960???Age:64 Y???Sex:Female Address:[address], [place], [address] * true * Date:? Generated for Margaret diaz/Annemarie/eTransmitting on:?12/21/2024 06:42 PM EDT
--- OUTSIDE RECORDS SUMMARY | 2024-12-21 18:43 | XMS_ITS ---
Author Organization [facility] Address [address] [place] [address] Care Team Providers Care Traffic Analyst Name Role Phone Alec COLEMAN, Shazia Primary Care Provider Unavail able Emerson Norris Unavailable [phone] Allergies Allergen (clinical drug ingredient) Drug/Non Drug Allergy documented on EMR Reaction Allergy Type Onset Date Status Penicillin Unknown Drug Allergy Active atorvastatin Atorvastatin Unknown Drug Allergy A ctive sulfamethoxazole / trimethoprim Bactrim Unknown Drug Allergy Active REASON FOR VISIT Patient presents today for a SCREENING COLON Medications Medication SIG (Take, Route, Frequency, Duration) Notes Start Date End Date Status Diphenhydramine 1 tab Oral for 14 days 09/30/2024 Active Aspirin 81 81 MG 1 tablet Orally Once a day for 30 day(s) 09/30/2024 Active Cyanocobalamin 1000 MCG 1 tablet Orally Once a day for 30 day(s) 09/30/2024 Active Multivitamin - 1 tablet Orally Once a day for 30 day(s) 09/30/2024 Active Thiamine HCl 100 MG 1 tablet Orally Once a day for 30 day(s) 09/30/2024 Active Atorvastatin Calcium 80 MG TAKE ONE TABL ET BY MOUTH EVERY EVENING AT BEDTIME Oral for 30 Not-Taking Cholecalciferol 50 MCG (1999 UT) 1 capsule Orally Once a day for 30 day(s) 09/30/2024 Active Ticagrelor 90 MG 1 tablet Orally Twic e a day for 30 day(s) 09/30/2024 Active Levothyroxine Sodium 75 MCG 1 tablet in the morning on an empty stomach Orally Once a day for 30 day(s) 09/30/2024 Active metroNIDAZOLE 0.75 % 1 application Externally Twice a day 09/30/2024 Active Metoprolol Tartrate 50 MG TAKE ONE TABLE T BY MOUTH TWICE A DAY Oral for 90 Active Rosuvastatin Calcium 10 MG TAKE ONE TABL ET BY MOUTH EVERY DAY Oral for 30 Active Esomeprazole Magnesium 20 MG 1 capsule 1/2 to 1 hour before morning meal Orally Once a day 09/30/2024 Active Lisinopril 5 MG TAKE ONE TABLET BY MOUTH EVERY DAY Oral for 60 Active Ezetimibe 10 MG TAKE ONE TABLET BY MOUTH EVERY DAY Oral for 90 Active Social History Tobacco Use: Social History Observation Description Date Details (start date - stop date) Never Smoker NA - NA Tobacco Use/Smoking Question Answer Notes Patient is [...] Never (0 point) Points 2 Interpretation Negative Section Notes: occ. glass of wine as of the 09/2024 OV; had been drinking a bottle of wine daily until 11/2023 Problems Problem Type SNOMED Code ICD Code Onset Dates Problem Status W/U Status Risk Notes Problem Anemia (278779842) Anemia (D64.9) Active confirmed Problem History of polyp of colon (situation) (220092842) Personal history of colonic polyps (Z86.010) Active confirmed Problem Colon cancer screening (387783574) Colon cancer screening (Z12.11) Active confirmed Problem Gastroesophageal reflux disease (disorder) (365250421) Chronic GERD (K21.9) Active confirmed Problem Early satiety (553408608) Early satiety (R68.81) Active confirmed Problem Nausea (421221626) Nausea (R11.0) Active confirmed Vital Signs Temperature 97.7 degrees Fahrenheit 09/30/19 25 Blood pressure systolic 000 mm Hg 09/30/19 25 Blood pressure diastolic 00 mm Hg 025 Height 5 ft in 09/30/2024 Weight 122 lb 6 oz lbs 09/30/2024 BMI 23.90 kg/m2 09/30/2024 Encounters Encounter Location Date Provider Diagnosis [facility] [address] [place] [id number] 09/30/2024 Emerson Norris Anemia D64.9 ; Personal history of colonic polyps Z86.010 ; Colon cancer screening Z12.11 ; Chronic GERD K21.9 ; Early satiety R68.81 and Nausea R11.0 Assessments Encounter Date Diagnosis (ICD Code) Assessment Notes Treatment Notes Treatment Clinical Notes Section Notes 09/30/2024 Anemia (ICD-10 - D64.9) We will get a clearance letter from Dr. Parker for your December, GI procedures Do not take the Brilinta for 2 days before the procedures Do not take aspirin on the day of the procedures Need your 09/2024 [facility] Overall, Lore appears well from a clinical standpoint and is presently not having any particularly worrisome GI complaints. She does have some nonspecific upper GI complaints of some anorexia and early satiety, but has not lost any further weight and appears well otherwise. Again, she attributes some of the upper GI complaints to the stress in having to help take care of her with significant Parkinson's disease. I have recommended a colonoscopy both for screening purposes due to the history of a tubular adenoma removed over 5 years ago and in regard to her chronic anemia to definitively exclude any lower GI source of blood loss. I also recommended an upper endoscopy on the same day due to her upper GI complaints of some early satiety and anorexia, her previous weight loss, some previous history of tobacco and alcohol use, and her anemia. I will plan to obtain biopsies from the duodenum to rule out celiac disease as a contributing factor to her anemia as well. She has been given the below instructions regarding adjustment of her medications for the procedures. The procedures will be booked for the latter part of December as she describes an appointment with her internet consultant in November which would allow us to obtain a clearance note from him for the procedure. Also, that'll be over one year since the placement of her coronary artery stent and that should allow us to be able stop her blood thinner for a couple of days before the procedure as long as her internet consultant does not have any objections to that. I did review with the patient in detail that assuming the GI studies do not show any source of her anemia she would then need to obtain a Hematology Consultation through your office for further evaluation of her anemia. Lore was comfortable with this plan. Thank you again for allowing me to participate in Lore's care. I shall continue to keep you advised of her progress. 09/30/2024 Personal history of colonic polyps (ICD-10 - Z86.010) Overall, Lore appears well from a clinical standpoint and is presently not having any particularly worrisome GI complaints. She does have some nonspecific upper GI complaints of some anorexia and early satiety, but has not lost any further weight and appears well otherwise. Again, she attributes some of the upper GI complaints to the stress in having to help take care of her with significant Parkinson's disease. I have recommended a colonoscopy both for screening purposes due to the history of a tubular adenoma removed over 5 years ago and in regard to her chronic anemia to definitively exclude any lower GI source of blood loss. I also recommended an upper endoscopy on the same day due to her upper GI complaints of some early satiety and anorexia, her previous weight loss, some previous history of tobacco and alcohol use, and her anemia. I will plan to obtain biopsies from the duodenum to rule out celiac disease as a contributing factor to her anemia as well. She has been given the below instructions regarding adjustment of her medications for the procedures. The procedures will be booked for the latter part of December as she describes an appointment with her internet consultant in November which would allow us to obtain a clearance note from him for the procedure. Also, that'll be over one year since the placement of her coronary artery stent and that should allow us to be able stop her blood thinner for a couple of days before the procedure as long as her internet consultant does not have any objections to that. I did review with the patient in detail that assuming the GI studies do not show any source of her anemia she would then need to obtain a Hematology Consultation through your office for further evaluation of her anemia. Lore was comfortable with this plan. Thank you again for allowing me to participate in Lore's care. I shall continue to keep you advised of her progress. 09/30/2024 Colon cancer screening (ICD-10 - Z12.11) Overall, Lore appears well from a clinical standpoint and is presently not having any particularly worrisome GI complaints. She does have some nonspecific upper GI complaints of some anorexia and early satiety, but has not lost any further weight and appears well otherwise. Again, she attributes some of the upper GI complaints to the stress in having to help take care of her with significant Parkinson's disease. I have recommended a colonoscopy both for screening purposes due to the history of a tubular adenoma removed over 5 years ago and in regard to her chronic anemia to definitively exclude any lower GI source of blood loss. I also recommended an upper endoscopy on the same day due to her upper GI complaints of some early satiety and anorexia, her previous weight loss, some previous history of tobacco and alcohol use, and her anemia. I will plan to obtain biopsies from the duodenum to rule out celiac disease as a contributing factor to her anemia as well. She has been given the below instructions regarding adjustment of her medications for the procedures. The procedures will be booked for the latter part of December as she describes an appointment with her internet consultant in November which would allow us to obtain a clearance note from him for the procedure. Also, that'll be over one year since the placement of her coronary artery stent and that should allow us to be able stop her blood thinner for a couple of days before the procedure as long as her internet consultant does not have any objections to that. I did review with the patient in detail that assuming the GI studies do not show any source of her anemia she would then need to obtain a Hematology Consultation through your office for further evaluation of her anemia. Lore was comfortable with this plan. Thank you again for allowing me to participate in Lore's care. I shall continue to keep you advised of her progress. 09/30/2024 Chronic GERD (ICD-10 - K21.9) Overall, Lore appears well from a clinical standpoint and is presently not having any particularly worrisome GI complaints. She does have some nonspecific upper GI complaints of some anorexia and early satiety, but has not lost any further weight and appears well otherwise. Again, she attributes some of the upper GI complaints to the stress in having to help take care of her with significant Parkinson's disease. I have recommended a colonoscopy both for screening purposes due to the history of a tubular adenoma removed over 5 years ago and in regard to her chronic anemia to definitively exclude any lower GI source of blood loss. I also recommended an upper endoscopy on the same day due to her upper GI complaints of some early satiety and anorexia, her previous weight loss, some previous history of tobacco and alcohol use, and her anemia. I will plan to obtain biopsies from the duodenum to rule out celiac disease as a contributing factor to her anemia as well. She has been given the below instructions regarding adjustment of her medications for the procedures. The procedures will be booked for the latter part of December as she describes an appointment with her internet consultant in November which would allow us to obtain a clearance note from him for the procedure. Also, that'll be over one year since the placement of her coronary artery stent and that should allow us to be able stop her blood thinner for a couple of days before the procedure as long as her internet consultant does not have any objections to that. I did review with the patient in detail that assuming the GI studies do not show any source of her anemia she would then need to obtain a Hematology Consultation through your office for further evaluation of her anemia. Lore was comfortable with this plan. Thank you again for allowing me to participate in Lore's care. I shall continue to keep you advised of her progress. 09/30/2024 Early satiety (ICD-10 - R68.81) Overall, Lore appears well from a clinical standpoint and is presently not having any particularly worrisome GI complaints. She does have some nonspecific upper GI complaints of some anorexia and early satiety, but has not lost any further weight and appears well otherwise. Again, she attributes some of the upper GI complaints to the stress in having to help take care of her with significant Parkinson's disease. I have recommended a colonoscopy both for screening purposes due to the history of a tubular adenoma removed over 5 years ago and in regard to her chronic anemia to definitively exclude any lower GI source of blood loss. I also recommended an upper endoscopy on the same day due to her upper GI complaints of some early satiety and anorexia, her previous weight loss, some previous history of tobacco and alcohol use, and her anemia. I will plan to obtain biopsies from the duodenum to rule out celiac disease as a contributing factor to her anemia as well. She has been given the below instructions regarding adjustment of her medications for the procedures. The procedures will be booked for the latter part of December as she describes an appointment with her internet consultant in November which would allow us to obtain a clearance note from him for the procedure. Also, that'll be over one year since the placement of her coronary artery stent and that should allow us to be able stop her blood thinner for a couple of days before the procedure as long as her internet consultant does not have any objections to that. I did review with the patient in detail that assuming the GI studies do not show any source of her anemia she would then need to obtain a Hematology Consultation through your office for further evaluation of her anemia. Lore was comfortable with this plan. Thank you again for allowing me to participate in Lore's care. I shall continue to keep you advised of her progress. 09/30/2024 Nausea (ICD-10 - R11.0) Overall, Lore appears well from a clinical standpoint and is presently not having any particularly worrisome GI complaints. She does have some nonspecific upper GI complaints of some anorexia and early satiety, but has not lost any further weight and appears well otherwise. Again, she attributes some of the upper GI complaints to the stress in having to help take care of her with significant Parkinson's disease. I have recommended a colonoscopy both for screening purposes due to the history of a tubular adenoma removed over 5 years ago and in regard to her chronic anemia to definitively exclude any lower GI source of blood loss. I also recommended an upper endoscopy on the same day due to her upper GI complaints of some early satiety and anorexia, her previous weight loss, some previous history of tobacco and alcohol use, and her anemia. I will plan to obtain biopsies from the duodenum to rule out celiac disease as a contributing factor to her anemia as well. She has been given the below instructions regarding adjustment of her medications for the procedures. The procedures will be booked for the latter part of December as she describes an appointment with her internet consultant in November which would allow us to obtain a clearance note from him for the procedure. Also, that'll be over one year since the placement of her coronary artery stent and that should allow us to be able stop her blood thinner for a couple of days before the procedure as long as her internet consultant does not have any objections to that. I did review with the patient in detail that assuming the GI studies do not show any source of her anemia she would then need to obtain a Hematology Consultation through your office for further evaluation of her anemia. Lore was comfortable with this plan. Thank you again for allowing me to participate in Lore's care. I shall continue to keep you advised of her progress. Plan Of Treatment Medication Medication Name Sig Start Date Stop Date Notes Esomeprazole Magnesium 20 MG 1 capsule 1 /2 to 1 hour before morning meal Orally Once a day 09/30/2024 Treatment Notes Assessment Notes Anemia We will get a clearance letter from Dr. Parker for your December, GI procedures Do not take the Brilinta for 2 days before the procedures Do not take aspirin on the day of the procedures Need your 09/2024 [facility] labs Future Test Test Name Order Date UPPER GI ENDOSCOPY 09/30/2024 COLONOSCOPY 09/30/2024 Next Appt Details Follow Up: prn, Reason: Provider Name:Emerson Norris , 01/04/2025 10:30:00 AM, [address] [place] [address] , [place], [place], [phone], Progress Notes * LORE MAXWELLDOB: (64 yo F)Acc No.[id number]:09/30/2024 Progress Notes Patient:?LORE MAXWELL Provider:?Emerson Norris MD :1960???Age:64 Y???Sex:Female D ate:09/30/2024 Address:[address] [place], [place] [id number] Pcp:Shazia Michael NP Subjective: * Chief Complaints: * ???Patient presents today fo r a SCREENING COLON * HPI: ???incontinence:? I saw Lore in consultation today in regard to her personal history of a tubular adenoma of the colon, discussion of colorectal cancer screening, a chronic anemia, chronic gastroesophageal reflux, some early satiety, and previous weight loss. ?As you know, Lore is a 64-year-old female who has had 2 previous colonoscopies in [place]. She had a negative colonoscopy at approximately age 48 with Dr. Hammond at [facility] and then a second colonoscopy in 2019 with removal of a small tubular adenoma by Dr. León. An upper endoscopy in 2019 revealed the finding of some mild esophagitis and a distal esophageal Schatzki ring which was dilated with a 20 mm balloon. She has been on a 20 mg Esomeprazole daily with good relief of reflux symptoms. ?She did lose about 20 pounds over the past couple of years which she attributed to stress from her 's illness of Parkinson's disease. She had also been drinking heavily at that time with upwards of a bottle of wine per day. Since her heart attack in November of 2023 she has significantly cut that back to just an occasional glass or 2 of wine. However, she does describe a somewhat diminished appetite and some early satiety. She does report that her weight has been stable despite that. She does report that her bowel movements have been regular and without any hematochezia nor melena. She denies any abdominal pain, signs of jaundice, fevers, nor significant fatigue. She presently denies any significant heartburn on her PPI and denies any dysphagia. ?She does describe a long-standing anemia with a hemoglobin of approximately 8. She did have a hemoglobin of 8.6 in April of 2024. She did have laboratories earlier this month at the [facility] but I don't have those results for my review as yet. In December of 2023 she had a hemoglobin of 8.0 with a normal MCV. At that time she had an iron of 36 and an iron saturation 21%. She had a normal B12 and folate level in 2023. ?She denies any known family history of colorectal cancer or celiac disease. ?She does take a single 81 mg aspirin daily and Brilinta in relation to her [facility] and placement of a coronary artery stent in November of 2023. She denies the use of any chronic NSAIDs. * ROS:?General/Constitutional:?Change in appetite?denies.?Chills?denies.?Fatigue?denies.?Ophthalmologic:?Comments?all negative.?ENT:?Comments?all negative.?Respiratory:?hemoptysis?denies.?Cough?denies.?Cardiovascular:?Chest pain?denies.?Orthopnea?denies.?Gastrointestinal:?Comments?See HPI for details.?Genitourinary:?Hematuria?denies.?Dysuria?denies.?Musculoskeletal:?Painful joints?denies.?Weakness?denies.?Skin:?Itching?denies.?Rash?denies.?Neurologic:?Headache?denies.?Seizures?denies.?Psychiatric:?Admits?Stressors,? has Parkinson's Disease.? * Medical History:? * Surgical History:? 1987Mastectomies bilateral--left sided cancer Attempted breast reconstruction but had to remove implants * Hospitalization/Major Diagno stic Procedure:?No Hospitalization History. * Family History:?Father: dece ased, diagnosed with Heart disease.?Mother: alive.? No family history of liver cancer or colon cancer. * Social History:?Tobacco Use:?Tobacco Use/Smoking?Patient is a?nonsmoker.?Drugs/Alcohol:?Alcohol Screen?Did you have a drink containing alcohol in the past year??Yes,?How often did you have a drink containing alcohol in the past year??2 to 4 times a month (2 points),?How many drinks did you have on a typical day when you were drinking in the past year??1 or 2 drinks (0 point),?How often did you have 6 or more drinks on one occasion in the past year??Never (0 point),?Points?2,?Interpretation?Negative.?Miscellaneous:?Marital status: . 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 ???occ. glass of wine as of the 09/2024 OV; had been drinking a bottle of wine daily until 11/2023. * Medications:?TakingMetoprolo l Tartrate 50 MG Tablet TAKE ONE TABLET BY MOUTH TWICE A DAY Oral Rosuvastatin Calcium 10 MG Tablet TAKE ONE TABLET BY MOUTH EVERY DAY Oral Lisinopril 5 MG Tablet TAKE ONE TABLET BY MOUTH EVERY DAY Oral Ezetimibe 10 MG Tablet TAKE ONE TABLET BY MOUTH EVERY DAY Oral Cholecalciferol 50 MCG (1999) Capsule 1 capsule Orally Once a dayLevothyroxine Sodium 75 MCG Tablet 1 tablet in the morning on an empty stomach Orally Once a daymetroNIDAZOLE 0.75 % Cream 1 application Externally Twice a dayTicagrelor 90 MG Tablet 1 tablet Orally Twice a dayAspirin 81 81 MG Tablet Delayed Release 1 tablet Orally Once a dayCyanocobalamin 1000 MCG Tablet 1 tablet Orally Once a dayDiphenhydramine 1 tab Oral Esomeprazole Magnesium 20 MG Capsule Delayed Release 1 capsule 1/2 to 1 hour before morning meal Orally Once a dayMultivitamin - Tablet 1 tablet Orally Once a dayThiamine HCl 100 MG Tablet 1 tablet Orally Once a dayTaking Metoprolol Tartrate 50 MG Tablet TAKE ONE TABLET BY MOUTH TWICE A DAY Oral Taking Rosuvastatin Calcium 10 MG Tablet TAKE ONE TABLET BY MOUTH EVERY DAY Oral Taking Lisinopril 5 MG Tablet TAKE ONE TABLET BY MOUTH EVERY DAY Oral Taking Ezetimibe 10 MG Tablet TAKE ONE TABLET BY MOUTH EVERY DAY Oral Taking Cholecalciferol 50 MCG (1999 UT) Capsule 1 capsule Orally Once a dayTaking Levothyroxine Sodium 75 MCG Tablet 1 tablet in the morning on an empty stomach Orally Once a dayTaking metroNIDAZOLE 0.75 % Cream 1 application Externally Twice a dayTaking Ticagrelor 90 MG Tablet 1 tablet Orally Twice a dayTaking Aspirin 81 81 MG Tablet Delayed Release 1 tablet Orally Once a dayTaking Cyanocobalamin 1000 MCG Tablet 1 tablet Orally Once a dayTaking Diphenhydramine 1 tab Oral Taking Esomeprazole Magnesium 20 MG Capsule Delayed Release 1 capsule 1/2 to 1 hour before morning meal Orally Once a dayTaking Multivitamin - Tablet 1 tablet Orally Once a dayTaking Thiamine HCl 100 MG Tablet 1 tablet Orally Once a dayNot-Taking/PRNAtorvastatin Calcium 80 MG Tablet TAKE ONE TABLET BY MOUTH EVERY EVENING AT BEDTIME Oral Medication List reviewed and reconciled with the patientNot-Taking/PRN Atorvastatin Calcium 80 MG Tablet TAKE ONE TABLET BY MOUTH EVERY EVENING AT BEDTIME Oral Medication List reviewed and reconciled with the patient * Allergies:?AtorvastatinBactr imPenicillinyes[Allergies Verified] Objective: * Vitals:?Wt: 122 lb 6 oz, Ht: 5 ft, BMI:23.90 Index, BP: 000/00 mm Hg, Temp: 97.7. * Examination: ???General Examination: ?GENERAL APPEARANCE:?pleasant, well nourished, well developed, in no acute distress.?EYES:?sclera non-icteric.?ORAL CAVITY:?mucosa moist.?NECK/THYROID:?no cervical lymphadenopathy, neck supple.?SKIN:?nonjaundiced, no spider angiomata.?HEART:?S1, S2 normal.?LUNGS:?clear to auscultation bilaterally.?ABDOMEN:?normal bowel sounds, no guarding or rigidity, no guarding or rigidity, no masses palpable, soft, nontender, nondistended.?EXTREMITIES:?no edema.?NEUROLOGIC:?alert and oriented.? Assessment: * Assessment: 1.?Anemia - D64.9 (Primary)? 2.?Personal history of colonic polyps - Z86.010?3.?Colon cancer screening - Z12.11?4.?Chronic GERD - K21.9?5.?Early satiety - R68.81?6.?Nausea - R11.0? Overall, Lore appears we ll from a clinical standpoint and is presently not having any particularly worrisome GI complaints. She does have some nonspecific upper GI complaints of some anorexia and early satiety, but has not lost any further weight and appears well otherwise. Again, she attributes some of the upper GI complaints to the stress in having to help take care of her with significant Parkinson's disease. I have recommended a colonoscopy both for screening purposes due to the history of a tubular adenoma removed over 5 years ago and in regard to her chronic anemia to definitively exclude any lower GI source of blood loss. I also recommended an upper endoscopy on the same day due to her upper GI complaints of some early satiety and anorexia, her previous weight loss, some previous history of tobacco and alcohol use, and her anemia. I will plan to obtain biopsies from the duodenum to rule out celiac disease as a contributing factor to her anemia as well. She has been given the below instructions regarding adjustment of her medications for the procedures. The procedures will be booked for the latter part of December as she describes an appointment with her internet consultant in November which would allow us to obtain a clearance note from him for the procedure. Also, that'll be over one year since the placement of her coronary artery stent and that should allow us to be able stop her blood thinner for a couple of days before the procedure as long as her internet consultant does not have any objections to that. I did review with the patient in detail that assuming the GI studies do not show any source of her anemia she would then need to obtain a Hematology Consultation through your office for further evaluation of her anemia. Lore was comfortable with this plan. Thank you again for allowing me to participate in Lore's care. I shall continue to keep you advised of her progress. Plan: * Treatment: ?Procedure: COLONOSCOPY (Ordered for 09/30/2024)* with MACsched for 01/04/25 at 10:30 ammiralax Notes: We will get a clearance letter from Dr. Parker for your December, GI procedures Do not take the Brilinta for 2 days before the procedures Do not take aspirin on the day of the procedures Need your 09/2024 [facility] labs??2.?Personal history of colonic polyps?Procedure: COLONOSCOPY (Ordered for 09/30/2024)* with MACsched for 01/04/25 at 10:30 ammiralax 3.?Colon cancer screening?Procedure: COLONOSCOPY (Ordered for 09/30/2024)* with MACsched for 01/04/25 at 10:30 ammiralax 4.?Chronic GERD?Procedure: UPPER GI ENDOSCOPY (Ordered for 09/30/2024)* with MACsched for 01/04/25 at 10:30 am 5.?Early satiety?Procedure: UPPER GI ENDOSCOPY (Ordered for 09/30/2024)* with MACsched for 01/04/25 at 10:30 am 6.?Nausea?Procedure: UPPER GI ENDOSCOPY (Ordered for 09/30/2024)* with MACsched for 01/04/25 at 10:30 am 7.?Others? Continue Esomeprazole Magnesium Capsule Delayed Release, 20 MG, 1 capsule 1/2 to 1 hour before morning meal, Orally, Once a day.?? * Procedure Codes:?3017F COLOR ECTAL CA SCREEN DOC UHB3083S TOBACCO NON-CHILA0450 BP SCR NOT PRFRM REC REASON NOS * Preventive Medicine:? ??Urinary Incontinence:?Urinary Incontinence?Assessment:?Absent,?Plan of care documented:?No, reason not specified.? ??Screenings:?Fall Risk Screening?Fall Risk Assessment:?No falls in the past year,?Screening:?No falls in the past year,?Assessment:?Not performed, no reason specified,?Plan of Care:?Not documented, no reason specified.? * Follow Up:?prn * * Sign off status: Completed true * Provider:?Emerson Norris MD Date:? 025 Generated for Margaret diaz/Annemarie/Sol on:?12/21/2024 06:42 PM EDT History and Physical Notes * HPI (History of Present Illness) Category Sub-Category Detail Notes Category Not es incontinence I saw Lore in consultation today in regard to her personal history of a tubular adenoma of the colon, discussion of colorectal cancer screening, a chronic anemia, chronic gastroesophageal reflux, some early satiety, and previous weight loss. As you know, Lore is a 64-year-old female who has had 2 previous colonoscopies in [place]. She had a negative colonoscopy at approximately age 48 [address] Hammond at [facility] and then a second colonoscopy in 2019 with removal of a small tubular adenoma by Dr. León. An upper endoscopy in 2019 revealed the finding of some mild esophagitis and a distal esophageal Schatzki ring which was dilated with a 20 mm balloon. She has been on a 20 mg Esomeprazole daily with good relief of reflux symptoms. She did lose about 20 pounds over the past couple of years which she attributed to stress from her 's illness of Parkinson's disease. She had also been drinking heavily at that time with upwards of a bottle of wine per day. Since her heart attack in November of 2023 she has significantly cut that back to just an occasional glass or 2 of wine. However, she does describe a somewhat diminished appetite and some early satiety. She does report that her weight has been stable despite that. She does report that her bowel movements have been regular and without any hematochezia nor melena. She denies any abdominal pain, signs of jaundice, fevers, nor significant fatigue. She presently denies any significant heartburn on her PPI and denies any dysphagia. She does describe a long-standing anemia with a hemoglobin of approximately 8. She did have a hemoglobin of 8.6 in April of 2024. She did have laboratories earlier this month at the [facility] but I don't have those results for my review as yet. In December of 2023 she had a hemoglobin of 8.0 with a normal MCV. At that time she had an iron of 36 and an iron saturation 21%. She had a normal B12 and folate level in 2023. She denies any known family history of colorectal cancer or celiac disease. She does take a single 81 mg aspirin daily and Brilinta in relation to her [facility] and placement of a coronary artery stent in November of 2023. She denies the use of any chronic NSAIDs. Examination Category Sub-Category Detail Notes Category Not es General Examination GENERAL APPEARANCE: pleasant , well nourished, well developed, in no acute distress HEAD: EYES: sclera non-icteric EARS: NOSE: THROAT: NECK/THYROID: no cervical lymphade nopathy, neck supple HEART: S1, S2 normal CHEST: LUNGS: clear to auscultatio n bilaterally ABDOMEN: normal bowel sounds, no guarding or rigidity, no guarding or rigidity, no masses palpable, soft, nontender, nondistended NEUROLOGIC: alert and oriented SKIN: nonjaundiced, no spi edwin angiomata EXTREMITIES: no edema PERIPHERAL PULSES: BACK: BREASTS: MUSCULOSKELETAL: MALE GENITOURINARY: LYMPH NODES: RECTAL EXAM: FEMALE GENITOURINARY: ORAL CAVITY: mucosa moist
--- OUTSIDE RECORDS SUMMARY | 2024-12-21 18:43 | XMS_ITS | Patient Health Record ---
Author Organization [facility] Address [address] [place] [address] Care Team Providers Care Timber Feller Name Role Phone Alec COLEMAN, Shazia Primary Care Provider Unavail able Emerson Swift Unavailable [phone] Allergies Allergen (clinical drug ingredient) Drug/Non Drug Allergy documented on EMR Reaction Allergy Type Onset Date Status Penicillin Unknown Drug Allergy Active atorvastatin Atorvastatin Unknown Drug Allergy A ctive sulfamethoxazole / trimethoprim Bactrim Unknown Drug Allergy Active Reason For Referral Referring Provider First Name Fawn Referring Provider Last Name Scott Referred Organization [facility] Referred Provider Emerson Swift Referred Address [address],[place], [place],[address],[place] Referred Provider Specialty Gastroentero logy Referral Priority Routine Referring Provider First Name Shazia Referring Provider Last Name Alec Referred Organization [facility] Referred Provider Emerson Swift Referred Address [address] [place] [address],[address],[place], [place],[address],[place] Referred Provider Specialty Gastroentero logy General Notes Carla Ramirez 2024 01:14:23 PM >[facility] EGD WITH DR SWIFT ON 01-04-25 Referral Priority Routine Medications Medication SIG (Take, Route, Frequency, Duration) [...] application Externally Twice a day 09/30/2024 Active Immunizations Vaccine Route Administration Date Status Comme nts Influenza Unknown 05/31/2024 Administered Social History Tobacco Use: Social History Observation [...] Problem Status W/U Status Risk Notes Problem Colon cancer screening (099073148) Colon cancer screening (Z12.11) Active confirmed Problem History of polyp of colon (situation) (251571038) Personal history of colonic polyps (Z86.010) Active confirmed Problem Nausea (739994760) Nausea (R11.0) Active confirmed Problem Early satiety (582399493) Early satiety (R68.81) Active confirmed Problem Anemia (858228752) Anemia (D64.9) Active confirmed Problem Gastroesophageal reflux disease (disorder) (628552375) Chronic GERD (K21.9) Active confirmed Vital Signs Temperature 97.7 degrees Fahrenheit 09/30/2024 Blood pressure diastolic 00 mm Hg 09/30/2024 Height 5 ft in 09/30/2024 Blood pressure systolic 000 mm Hg 09/30/2024 Weight 122 lb 6 oz lbs 09/30/2024 BMI 23.90 kg/m2 09/30/2024 Encounters Encounter Location Date Provider Diagnosis [facility] [address] [place] [phone] 09/30/2024 Emerson Swift Anemia D64.9 ; Personal history of colonic polyps Z86.010 ; Colon cancer screening Z12.11 ; Chronic GERD K21.9 ; Early satiety R68.81 and Nausea R11.0 [facility] [address] [place] [phone] 09/30/2024 Emerson Swift Assessments Encounter Date Diagnosis (ICD Code) Assessment Notes Treatment Notes Treatment Clinical Notes Section Notes 09/30/2024 Personal history of colonic polyps [...] as she describes an appointment with her edm operator in November which would allow us to obtain a clearance note from him for the procedure. Also, that'll be over one year since the placement of her coronary artery stent and that should allow us to be able stop her blood thinner for a couple of days before the procedure as long as her edm operator does not have any objections to that. [...] keep you advised of her progress. 09/30/2024 Anemia (ICD-10 - D64.9) We will [...] as she describes an appointment with her edm operator in November which would allow us to obtain a clearance note from him for the procedure. Also, that'll be over one year since the placement of her coronary artery stent and that should allow us to be able stop her blood thinner for a couple of days before the procedure as long as her edm operator does not have any objections to that. [...] as she describes an appointment with her edm operator in November which would allow us to obtain a clearance note from him for the procedure. Also, that'll be over one year since the placement of her coronary artery stent and that should allow us to be able stop her blood thinner for a couple of days before the procedure as long as her edm operator does not have any objections to that. [...] as she describes an appointment with her edm operator in November which would allow us to obtain a clearance note from him for the procedure. Also, that'll be over one year since the placement of her coronary artery stent and that should allow us to be able stop her blood thinner for a couple of days before the procedure as long as her edm operator does not have any objections to that. [...] as she describes an appointment with her edm operator in November which would allow us to obtain a clearance note from him for the procedure. Also, that'll be over one year since the placement of her coronary artery stent and that should allow us to be able stop her blood thinner for a couple of days before the procedure as long as her edm operator does not have any objections to that. [...] as she describes an appointment with her edm operator in November which would allow us to obtain a clearance note from him for the procedure. Also, that'll be over one year since the placement of her coronary artery stent and that should allow us to be able stop her blood thinner for a couple of days before the procedure as long as her edm operator does not have any objections to that. [...] advised of her progress. Plan Of Treatment Future Test Test Name Order Date UPPER GI ENDOSCOPY 09/30/2024 COLONOSCOPY 09/30/2024 Next Appt Details Provider Name:Emerson Swift , 01/04/2025 10:30:00 AM, [address] [place] [address] , [place], [place], [phone], Insurance Providers Payer Name Payer Address Payer Phone Subscriber Number Group Number Insured Name Patient Relationship to Insured Coverage Start Date Coverage End Date [facility] [employer] [address] [place] [address] [id number] LORE MAXWELL Self - patient is the insured Medical (General) History Medical History History ICD Code Hypertension [place] in November 2023 with a sten t placed in [facility]-Dr. Parker--started on 81 mg aspirin and Brilinta Denies DM,CVA,Lung disease,renal disease Hyperlipidemia Breast cancer Colonoscopy age 48 was neg with Dr. Yvette riddle at [facility] Colonoscopy 2018 with a single tubular a denoma removed [...]
[2024-12-21 18:49] LABS: Basophils Absolute Auto 0.1 X10*3/uL (0.0-0.2); Basophils Percent Auto 1.2 % (0-2); Eosinophils Percent Auto 0.4 % (0-4); Hematocrit 30.7 % (37.0-47.0); Hemoglobin 10.3 g/dl (12.0-16.0); Imm Gran Abs Auto 0.09 X10*3/uL (0.00-0.03); Imm Gran Pct Auto 0.8 % (0.0-0.4); Lymphocytes Absolute Auto 4.4 X10*3/uL (1.2-4.9); Lymphocytes Percent Auto 39.1 % (20-40); Mean Corpuscular HGB Conc 33.6 g/dl (31.0-35.0); Mean Corpuscular Hemoglobin 32.3 pg (27.0-33.0); Mean Corpuscular Volume 96.2 fL (80.0-98.0); Mean Platelet Volume 9.2 fL (9.4-12.3); Monocytes Absolute Auto 0.6 X10*3/uL (0.1-1.2); Monocytes Percent Auto 5.4 % (2-11); Neutrophils Percent Auto 53.1 % (45-73); Platelet Count 351 X10*3/uL (160-400); Red Blood Count 3.19 X10*6/uL (4.20-5.50); White Blood Count 11.3 X10*3/uL (4.8-10.8)
[2024-12-21 19:05] LABS: Acetaminophen LAB < 3 mcg/mL (<30); Alanine Aminotransferase 145 U/L (0-31); Albumin Level 4.6 g/dL (3.5-5.0); Alkaline Phosphatase 167 U/L (39-117); Anion Gap 25 (12-20); Aspartate Amino Transferase 175 U/L (5-31); Bilirubin Direct 0.1 mg/dL (0.0-0.5); Bilirubin Total 0.3 mg/dL (0.0-1.0); Blood Urea Nitrogen 27 mg/dL (9-16); Calcium 9.3 mg/dL (8.4-10.2); Carbon Dioxide 12 mmol/L (22-29); Chloride 101 mmol/L (96-108); Creatinine Clr Calc Pharmacy 37.3; Estimated Glomerular Filt Rate 40; Ethanol 467 mg/dL; Glucose Random 76 mg/dL (60-115); Potassium 4.8 mmol/L (3.3-5.1); Salicylate < 5.0 mg/dL (15-30); Sodium 133 mmol/L (135-145); Total Protein 7.7 g/dL (6.5-8.0)
[2024-12-21 19:10] LABS: Troponin-I High Sensitivity 5.1 ng/L (<3.5-17.0)
[2024-12-21 20:38] VITALS: BP 152/79; PULSE 106; RESP 18; TEMP 36.9; O2SAT 98
--- NOTE | 2024-12-21 20:42 | PC.NURSE ---
pt tearful, requesting to go home, sitter at bedside
--- NOTE | 2024-12-21 20:57 | PC.NURSE ---
attempt to walk pt with out assistance. pt unsteady on feet. not safe for pod at this time
--- NOTE | 2024-12-21 21:04 | MHC.CM.ED ---
CM received consult for this patient from Dr. Angel. Pt is intoxication with BAL of 467. She is here for SI attempt. Pt with sitter. Crying. CM will defer assessment until patient is sober. CARE team consult pending. According to medical record, patient is stressed from caring for her with Parkinson's. HCP is on file. HCP/ Nabeel Luz and #2 HCP/son Gonzalez Luz. CM will assess patient in the morning.
[2024-12-21 21:10] LABS: Appearance Urine Clear; Color Urine Yellow; Glucose Urine UA Negative (Negative); Leukocyte Esterase Urine Trace (Negative); Nitrite Urine Negative (Negative); UMIC TRIGGER UACC YES; Urine Blood Negative (Negative); Urine Ketones Trace mg/dL (Negative); Urine Protein Trace mg/dL (Neg-Trace)
[2024-12-21 21:12] LABS: Amphetamine Screen Urine Not Detected (Not Detect); Barbiturates, Urine Not Detected (Not Detect); Benzodiazepines Screen Urine Not Detected (Not Detect); Buprenorphine Scr Not Detected (Not Detect); Cannabinoid Screen Urine Not Detected (Not Detect); Cocaine Screen Urine Not Detected (Not Detect); Fentanyl, urine Not Detected (Not Detect); Methadone Screen, Urine Not Detected (Not Detect); Opiate Screen Urine Not Detected (Not Detect); Oxycodone Screen Urine Not Detected (Not Detect); Phencyclidine Screen Urine Not Detected (Not Detect)
[2024-12-21] MEDS: amLODIPine Besylate 10 MG TABLET PO (21:16)
[2024-12-21 21:17] LABS: Bacteria Urine None Seen (None Seen); RBC Urine 0-2 /HPF (0-2); WBC Urine 0-5 /HPF (0-5)
--- NOTE | 2024-12-21 22:48 | PC.NURSE ---
report to pod, pt ambulates with steady gait
[2024-12-21 23:21] VITALS: BP 149/75; PULSE 121; RESP 16; TEMP 36.6; O2SAT 100
[2024-12-22] VITALS: BP 149/75; PULSE 121
[2024-12-22] MEDS: Ezetimibe 10 MG TABLET PO ×2 (00:01→20:31)
[2024-12-22 06:06] VITALS: RESP 16
[2024-12-22] MEDS: Levothyroxine Sodium 50 MCG TABLET PO (07:18)
[2024-12-22 07:58] VITALS: BP 120/63; PULSE 86
[2024-12-22] MEDS: lisinopriL 5 MG TABLET PO (07:58)
[2024-12-22] MEDS: Metoprolol Tartrate 50 MG TABLET PO ×3 (07:58→20:31)
[2024-12-22] MEDS: Aspirin 81 MG TAB.CHEW PO (07:58)
[2024-12-22] MEDS: Multivitamin TABLET 1 TAB PO (07:58)
[2024-12-22] MEDS: Atorvastatin Calcium 40 MG TABLET PO (07:58)
--- NOTE | 2024-12-22 08:19 | PC.NURSE ---
Pt requesting her home nexium. dr diaz messaged with this information.
[2024-12-22] MEDS: Omeprazole 20 MG CAPSULE.DR PO (08:57)
--- NOTE | 2024-12-22 09:05 | MHC.CARE ---
Pt meets the criteria for IPLOC. Section 12 in chart. Provider in agreement.
--- NOTE | 2024-12-22 09:08 | ECG_ITS ---
Test Reason : r/o prolong QT Blood Pressure : */* mmHG Vent. Rate : 84 BPM Atrial Rate : 84 BPM P-R Int : 156 ms QRS Dur : 76 ms QT Int : 422 ms P-R-T Axes : 52 53 60 degrees QTcB Int : 498 ms Normal sinus rhythm Septal infarct , age undetermined Abnormal ECG When compared with ECG of 05-Dec-2023 18:14, Septal infarct is now Present T wave inversion no longer evident in Inferior leads T wave inversion less evident in Anterolateral leads QT has shortened Referred By: Genna Squires Electronically Signed By: ANDREZ FIGUEREDO MD
--- NOTE | 2024-12-22 10:13 | MHC.CM.ED ---
Patient is inpatient psych level of care. Case management consulted d/c'd at this time.
--- NOTE | 2024-12-22 12:16 | PC.NURSE ---
Report to Merry NARAYAN
[2024-12-22 14:00] VITALS: BP 119/79; PULSE 94; RESP 16; TEMP 36.8; O2SAT 100
[2024-12-22] MEDS: Ondansetron ODT 4 MG TAB.RAPDIS TRANSLINGU (14:28)
[2024-12-22] MEDS: LORazepam 1 MG TABLET 3 MG PO (14:41)
[2024-12-22] MEDS: LORazepam 1 MG TABLET PO (17:11)
--- NOTE | 2024-12-22 17:33 | PC.ADMIT ---
Lore Zhou is a 64-year-old female admitted from [facility] to M3 on a CV for treatment of unspecified depressive disorder, alcohol use disorder. Tox screen negative, BAL 467 on 12/21. Pt on CIWA Q4h, pt scored 16 on admission due to bilateral arm tremors and vomiting, pt received 3 mg Ativan. Pt reported drinking a bottle of wine every night the past few days, last drink prior to admission. Pt was BIBA secondary to intentionally overdosing on prescription medications at home in a suicide attempt. Pt's son was home and he removed pills from pt's mouth, pt stated she did not swallow any pills. Upon admission assessment, pt was alert and oriented x4, pleasant and cooperative. Pt was tremulous and vomiting during assessment and was unable to sign legal paperwork due to tremors in bilateral arms. 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 When asked how she felt after surviving the attempt, pt stated I feel guilty, embarrassed, but glad that I'm still here. Pt currently denied thoughts of harming herself and would reach out to staff if thoughts occurred. Pt reports difficulty falling and staying asleep. Skin check revealed a large purple bruise on upper left chest, bruising on left flank, left buttock, left heel, abrasions on left park and right forearm. Pt reports this was due to a fall on Thursday. Pt also reports she was on blood thinners d/t having a stroke. Pt has medical hx cardiac catheterization December 2023, breast cancer and double mastectomy in 2008, HTN, Hypothyroidism, hyperlipidemia. Pt reports 20 lb weight loss in 2 years due to decreased appetite, nutrition consult placed. Pt reports this is her first inpatient hospitalization and she's never received psychiatric care. Pt has an appointment with a therapist at the [facility] at the end of the month but does not have a prescriber for medications, pt states she's never taken psychiatric medication. Pt placed on 15 minute safety checks.
[2024-12-22 20:21] VITALS: BP 125/69; PULSE 97; RESP 18; TEMP 37.3; O2SAT 100
[2024-12-22 20:31] VITALS: BP 125/69; PULSE 97
[2024-12-22] MEDS: Ibuprofen 600 MG TABLET PO (20:31)
[2024-12-23 05:34] VITALS: BP 126/73; PULSE 84; RESP 16; TEMP 36.7; O2SAT 100
[2024-12-23] MEDS: Levothyroxine Sodium 50 MCG TABLET PO (05:35)
[2024-12-23 07:37] VITALS: BP 124/63; PULSE 79; RESP 14; TEMP 37.4; O2SAT 100
[2024-12-23 09:13] LABS: Estimated Average Glucose 108 mg/dL; Hemoglobin A1c % 5.4 % (<6.0); Total Hemoglobin (HGBA1C) 2514.8202 umol/L
[2024-12-23] MEDS: Aspirin 81 MG TAB.CHEW PO (09:17)
[2024-12-23 09:18] VITALS: BP 124/63; PULSE 79
[2024-12-23] MEDS: Metoprolol Tartrate 50 MG TABLET PO ×2 (09:18→21:03)
[2024-12-23] MEDS: Thiamine HCL 100 MG TABLET PO (09:18)
[2024-12-23] MEDS: lisinopriL 5 MG TABLET PO (09:18)
[2024-12-23] MEDS: Multivitamin TABLET 1 TAB PO (09:18)
--- NOTE | 2024-12-23 09:18 | P.HPPS_ITS ---
HPI Date of Service: 12/23/24 Chief Complaint: SA Sources of Information: patient interviewed, chart reviewed and crisis/core team assessment reviewed HPI Subjective Notes: Melara Warning and 3 Day Narrative: Patient is a 64-year-old female with history of MDD and alcohol use disorder, who was brought in via ambulance due to intentionally overdosing on prescription medications in a suicide attempt secondary to increased life stressors. Per crisis report, patient stated to her son, I am going to kill myself. I will be by the morning . Patient's son removed 3 pills from patient's mouth. Patient had been drinking alcohol heavily for 4 days and was intoxicated upon arrival to ED with BAL of 467. Patient was making suicidal statements stating that her son should have let her . Patient is overwhelmed with caring for her who has Parkinson's disease. Patient reports that she has been drinking alcohol in excess for years and is trying to stop . Patient reports she has been struggling with increased depression and alcohol for the past 2 years. She does not have outpatient psychiatric providers and is not on psychiatric medications. denies history of inpatient psychiatric hospitalizations, CCS or PHP admissions. Denies history of SA/SIB. During admission assessment, patient presents alert and oriented x3. Calm and cooperative. Patient reports feeling depressed ; patient stated, I was really tired and overwhelmed. I take care of my and my mother when I can. I do it all alone. The pressure of everything got to me in that moment . Patient reports that she feels relieved that she did not swallow the pills because of what it would do to the rest of her family and her . Patient stated, I know I can bounce back. I have before . Patient reports she has no history of taking psychiatric medications however, has had depression for a long time with the hopes that it would go away without medication . Patient reports that she drinks as a way of coping with stress. She does not have outpatient psychiatric providers at this time but would like referrals. pt reports poor sleep. Discussed starting on Remeron; risks/benefits reviewed; pt agreed to trial. Past Psychiatric History: does not have outpatient psychiatric providers and is not on psychiatric medications. denies history of inpatient psychiatric hospitalizations, CCS or PHP admissions. Denies history of SA/SIB. Medical Evaluation Reviewed: Yes [facility] Medical History History of alcohol abuse Marijuana use Hypothyroidism Hyperlipidemia Hypertension Alcohol abuse Surgical History S/P cardiac catheterization Family History: Denies Social History: Lives with . Two adult children. 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 Substance History: BAL 467 upon arrival to ER. Patient denies any other substance use. U tox negative. Trauma History: Denies Diagnostics Vital Signs (24Hr): Vital Signs - 24 hr 12/22/24 14:00 12/22/24 20:21 12/22/24 20:31 Temperature 98.3 F 99.1 F Pulse Rate 94 97 97 Respiratory Rate 16 18 Blood Pressure 119/79 125/69 125/69 Pulse Oximetry 100 100 Oxygen Delivery Method Room Air Room Air 12/23/24 05:34 12/23/24 07:37 Temperature 98.0 F 99.3 F Pulse Rate 84 79 Respiratory Rate 16 14 Blood Pressure 126/73 124/63 Pulse Oximetry 100 100 Oxygen Delivery Method Room Air Room Air BMI result Body Mass Index 27.4 Labs 12/21/24 18:32 12/21/24 18:32 Labs: Laboratory Results - last 48 hr 12/21/24 12/21/24 12/21/24 08:24 18:32 20:56 WBC 11.3 H RBC 3.19 L Hgb 10.3 L Hct 30.7 L MCV 96.2 MCH 32.3 MCHC 33.6 RDW 13.0 Plt Count 351 MPV 9.2 L Immature Gran % (Auto) 0.8 H Neut % (Auto) 53.1 Lymph % (Auto) 39.1 [place] % (Auto) 5.4 Eos % (Auto) 0.4 Baso % (Auto) 1.2 Lymph # (Auto) 4.4 [place] # (Auto) 0.6 Eos # (Auto) 0.0 Baso # (Auto) 0.1 Abs Immat Gran (auto) 0.09 H Absolute Neuts (auto) 6.0 Absolute Nucleated RBC 0.000 Nucleated RBC % (auto) 0.0 Sodium 133 L Potassium 4.8 Chloride 101 Carbon Dioxide 12 L Anion Gap 25 H BUN 27 H Creatinine 1.34 Estim Creat Clear Calc 37.3 Estimated GFR 40 Random Glucose 76 Estimat Average Glucose Hemoglobin A1c % Calcium 9.3 D Magnesium 2.0 Total Bilirubin 0.3 Direct Bilirubin 0.1 AST 175 H ALT 145 H Alkaline Phosphatase 167 H Troponin I High Sens 5.1 D Total Protein 7.7 Albumin 4.6 Urine Color Yellow Urine Appearance Clear Urine pH 5.0 Ur Specific [place] 1.010 Urine Protein Trace Urine Glucose (UA) Negative Urine Ketones Trace Urine Blood Negative Urine Nitrite Negative Ur Leukocyte Esterase Trace H Urine RBC 0-2 Urine WBC 0-5 Ur Squamous Epith Cells 3-5 Urine Bacteria None Seen Hyaline Casts 3-5 Salicylates < 5.0 L Urine Opiates Screen Not Detected Ur Buprenorphine Scrn Not Detected Ur Oxycodone Screen Not Detected Urine Methadone Screen Not Detected Urine Fentanyl Screen Not Detected Acetaminophen < 3 Ur Barbiturates Screen Not Detected Ur Phencyclidine Scrn Not Detected Ur Amphetamines Screen Not Detected U Benzodiazepines Scrn Not Detected Urine Cocaine Screen Not Detected U Marijuana (THC) Screen Not Detected Ethyl Alcohol 467 H* 12/23/24 08:20 WBC RBC Hgb Hct MCV MCH MCHC RDW Plt Count MPV Immature Gran % (Auto) Neut % (Auto) Lymph % (Auto) [place] % (Auto) Eos % (Auto) Baso % (Auto) Lymph # (Auto) [place] # (Auto) Eos # (Auto) Baso # (Auto) Abs Immat Gran (auto) Absolute Neuts (auto) Absolute Nucleated RBC Nucleated RBC % (auto) Sodium Potassium Chloride Carbon Dioxide Anion Gap BUN Creatinine Estim Creat Clear Calc Estimated GFR Random Glucose Estimat Average Glucose 108 Hemoglobin A1c % 5.4 Calcium Magnesium Total Bilirubin Direct Bilirubin AST ALT Alkaline Phosphatase Troponin I High Sens Total Protein Albumin Urine Color Urine Appearance Urine pH Ur Specific [place] Urine Protein Urine Glucose (UA) Urine Ketones Urine Blood Urine Nitrite Ur Leukocyte Esterase Urine RBC Urine WBC Ur Squamous Epith Cells Urine Bacteria Hyaline Casts Salicylates Urine Opiates Screen Ur Buprenorphine Scrn Ur Oxycodone Screen Urine Methadone Screen Urine Fentanyl Screen Acetaminophen Ur Barbiturates Screen Ur Phencyclidine Scrn Ur Amphetamines Screen U Benzodiazepines Scrn Urine Cocaine Screen U Marijuana (THC) Screen Ethyl Alcohol Meds/Allergies Meds Home Medications ?Medication ?Instructions ?Recorded ?Confirmed ?Type levothyroxine 88 mcg tablet 50 mcg PO DAILY@0600 03/22/24 12/21/24 History ezetimibe 10 mg tablet (Zetia) 10 mg PO BEDTIME 12/21/24 12/21/24 History Allergies Allergies Allergy/AdvReac Type Severity Reaction Status Date / Time amoxicillin [AMOXICILLIN] Allergy Unknown RASH Verified 12/21/24 17:59 doxycycline [DOXYCYCLINE] Allergy Unknown NAUSEA Verified 12/21/24 17:59 /VOMITING penicillin V Allergy Unknown facial Verified 12/21/24 17:59 edema Sulfa (Sulfonamide Allergy Unknown rash Verified 12/21/24 17:59 Antibiotics) sulfamethoxazole Allergy Unknown FACE Verified 12/21/24 17:59 [From BACTRIM] SWELLING trimethoprim [From BACTRIM] Allergy Unknown FACE Verified 12/21/24 17:59 SWELLING atorvastatin Allergy Rash Verified 12/21/24 17:59 minocycline [Minocin] AdvReac Unknown GI Verified 12/21/24 17:59 upset/nausea Doxycycline Hyclate AdvReac Unknown GI Uncoded 12/21/24 17:59 upset/nausea Mental Status Exam Mental Status Exam Patient Appearance: Appropriate Patient Orientation: Person, Place, Time and Situation Level of Consciousness: Awake and Alert Patient Behavior: Appropriate, Cooperative and Good Eye Contact Mood Description: Depressed Affect Description: Depressed Ability to Follow Directions: Good Speech Pattern: Clear and Appropriate Memory Description: Intact Hallucinations: None Delusions: Not Present Thought Process: Intact Thought Content: positive for Intact Assessment & Plan Assessment & Plan (1) MDD (major depressive disorder), recurrent episode: Status: Acute Code(s): F33.9 - Major depressive disorder, recurrent, unspecified (2) Alcohol use disorder: Status: Acute Code(s): F10.90 - Alcohol use, unspecified, uncomplicated Plan Patient is a 64-year-old female with history of MDD and alcohol use disorder, who was brought in via ambulance due to intentionally overdosing on prescription medications in a suicide attempt secondary to increased life stressors. Plan: 3 day 5 minute checks CIWA protocol Continue home medications Obtain collateral Start: Remeron 7.5mg PO bedtime Referral to outpatient psychiatric providers Encourage groups Discharge planning Patient educated on: diagnosis and medication risk/benefits Reason for continued inpatient stay Substantial Risk for: harm to self and med/psych decompensation Statement Statement: I have reviewed the history and physical and performed a pertinent examination on my patient. No changes have occurred unless specified. If the History and Physical was not performed prior to admission, the Hospitalist's service will be consulted for completing the admission physical. Time Spent With Patient Time: Total time managing care of this patient today _60___ minutes.
[2024-12-23 09:19] LABS: Cholesterol 159 mg/dL (<200); HDL Cholesterol 80 mg/dL (>40); LDL Cholesterol Calculated 60 mg/dL (<100); Triglycerides 97 mg/dL (<150)
[2024-12-23 09:36] LABS: Free T4 (Free Thyroxine) 0.91 ng/dL (0.71-1.85); Thyroid Stimulating Hormone 2.26 uIU/mL (0.32-4.0)
[2024-12-23 09:48] LABS: Folate 14.8 ng/mL (> or = 4.0); Vitamin B12 1607 pg/mL (200-900)
--- NOTE | 2024-12-23 14:03 | MHC.CLN ---
NUTRITION CONSULT CONSULT FOR PATIENT REPORTED 20# WEIGHT LOSS X 2 YEARS. REVIEW OF WEIGHT HX SHOWS APPROX 11# WEIGHT LOSS X ONE YEAR. LARGE DISCREPANCY IN WEIGHT FROM 11/30/24 TO 12/21/24 SHOWING SHOWING APPROX 25# WEIGHT GAIN. DIET=CARDIAC. MAY LIBERALIZE DIET TO REGULAR IF POOR PO AT MEALS.
[2024-12-23 20:00] VITALS: BP 140/77; PULSE 76; RESP 16; TEMP 37.4; O2SAT 100
[2024-12-23 21:03] VITALS: BP 140/77; PULSE 72
[2024-12-23] MEDS: Ezetimibe 10 MG TABLET PO (21:04)
[2024-12-23] MEDS: Ibuprofen 600 MG TABLET PO (21:12)
[2024-12-24] VITALS (7 sets, daily range): BP systolic 118–155; BP diastolic 61–79; PULSE 82–96; RESP 16–18; TEMP 36.9–37.3; O2SAT 100; BMI 21.9
[2024-12-24] MEDS: Levothyroxine Sodium 50 MCG TABLET PO (05:58)
[2024-12-24] MEDS: lisinopriL 5 MG TABLET PO (08:30)
[2024-12-24] MEDS: Multivitamin TABLET 1 TAB PO (08:31)
[2024-12-24] MEDS: Aspirin 81 MG TAB.CHEW PO (08:31)
[2024-12-24] MEDS: Metoprolol Tartrate 50 MG TABLET PO ×2 (08:31→21:19)
[2024-12-24] MEDS: Thiamine HCL 100 MG TABLET PO (08:32)
--- NOTE | 2024-12-24 10:44 | P.PNPSI_ITS ---
Subjective Subjective Date of Service: 12/24/24 Reason For Visit: SA Subjective Notes: 3 Day Interim History: Pt reports she feels much better than when she came in. She denies suciidal ideation. She reports attempted OD on med while intoxicated was due to being under the influence. She reports she is worried that daughter has said to her that pt's who has Parkinson's can't stay with pt any longer as she is not able to care for him. She feels this is unfair, although reports several falls at home due to being intoxicated. She declines medication for depression, including antidepressants. She also denies medication to assist with alcohol use disorder. We reviewed labs, noted that creatinine clearance is in low 30's and she is taking ibuprofen. It does seem that she may have underlying kidney disease as Cr seems stable, and BUn was slightly elevated. repeat renal function does show worsening of both BUN and Cr. discussed not taking NSAID and following up with nephrology outpatient. she did not take remeron and asked that this antidepressant is discontinued. She also decline MAT for alcohol use disorder Medication Compliance: Yes Mental Status Exam Mental Status Exam Narrative: Appearance: wearing hospital gown, fair hygiene, in NAD Behavior: cooperative Psychomotor: no agitation or retardation noted Speech: clear, normal rate/rhythm, volume, spontaneous TP: linear TC: wanting to go home soon and starting AA, saddened and upset about moving to another relative's home Mood: better Affect: congruent SI: adamantly denies HI: denies VH/AH: none Delusions: none Insight/judgment: poor x 2. Memory/cog: alert, oriented x 3. grossly intact to conversational testing. Diagnostics Vital Signs (24Hr): Vital Signs - 24 hr 12/23/24 20:00 12/23/24 21:03 12/24/24 08:00 Temperature 99.3 F 99.2 F Pulse Rate 76 72 85 Respiratory Rate 16 Blood Pressure 140/77 H 140/77 H 136/62 Pulse Oximetry 100 100 Oxygen Delivery Method Room Air Room Air 12/24/24 08:30 12/24/24 08:31 Temperature Pulse Rate 85 Respiratory Rate Blood Pressure 136/62 136/62 Pulse Oximetry Oxygen Delivery Method BMI result Body Mass Index 21.9 Labs 12/21/24 18:32 12/25/24 15:30 Labs: Laboratory Results - last 48 hr 12/23/24 08:20 Estimat Average Glucose 108 Hemoglobin A1c % 5.4 Triglycerides 97 Cholesterol 159 LDL Cholesterol, Calc 60 HDL Cholesterol 80 Vitamin B12 1607 H Folate 14.8 TSH 2.26 Free T4 0.91 Medications Medications Current Medications Al Hydroxide/Mg Hydroxide (Magnesium Hydrox/Alum Hydrox 30 Ml Oral.Susp) 30 ml PO Q6H PRN PRN Reason: Heartburn/Nausea Aspirin (Aspirin 81 Mg Tab.Chew) 81 mg PO DAILY [facility] Last Admin: 12/24/24 08:31 Dose: 81 mg Ezetimibe (Ezetimibe 10 Mg Tablet) 10 mg PO BEDTIME [facility] Last Admin: 12/23/24 21:04 Dose: 10 mg Hydroxyzine HCl (Hydroxyzine Hcl 25 Mg Tablet) 25 mg PO Q6H PRN PRN Reason: mild anxiety Ibuprofen (Ibuprofen 600 Mg Tablet) 600 mg PO Q6H PRN PRN Reason: Pain 1-10 Last Admin: 12/23/24 21:12 Dose: 600 mg Levothyroxine Sodium (Levothyroxine Sodium 50 Mcg Tablet) 50 mcg PO DAILY@0600 [facility] Last Admin: 12/24/24 05:58 Dose: 50 mcg Lisinopril (Lisinopril 5 Mg Tablet) 5 mg PO DAILY [facility]; Protocol Last Admin: 12/24/24 08:30 Dose: 5 mg Lorazepam (Lorazepam 1 Mg Tablet) 1 mg PO Q2H PRN PRN Reason: CIWA 8-11 Last Admin: 12/22/24 17:11 Dose: 1 mg Lorazepam (Lorazepam 1 Mg Tablet) 2 mg PO Q2H PRN PRN Reason: CIWA 12-15 Lorazepam (Lorazepam 1 Mg Tablet) 3 mg PO Q2H PRN PRN Reason: CIWA > 15, and call Last Admin: 12/22/24 14:41 Dose: 3 mg Magnesium Hydroxide (Milk Of Magnesia 30 Ml Oral.Susp) 30 ml PO DAILY PRN PRN Reason: Constipation Metoprolol Tartrate (Metoprolol Tartrate 50 Mg Tablet) 50 mg PO BID [facility]; Protocol Last Admin: 12/24/24 08:31 Dose: 50 mg Mirtazapine (Mirtazapine 7.5 Mg Tablet) 7.5 mg PO BEDTIME [facility] Last Admin: 12/23/24 21:08 Dose: Not Given Multivitamins/Vitamin C (Multivitamin Tablet) 1 tab PO DAILY [facility] Last Admin: 12/24/24 08:31 Dose: 1 tab Nicotine Polacrilex (Nicotine Polacrilex 2 Mg Gum) 4 mg BUCCAL Q2H PRN PRN Reason: Nicotine Cravings Non-Formulary Medication ( Rosuvastatin 10mg Tablet) 10 each PO DAILY [facility] Ondansetron HCl (Ondansetron Odt 4 Mg Tab.Rapdis) 4 mg TRANSLINGU Q6H PRN PRN Reason: Nausea and Vomiting Last Admin: 12/22/24 14:28 Dose: 4 mg Thiamine HCl (Thiamine Hcl 100 Mg Tablet) 100 mg PO DAILY [facility] Last Admin: 12/24/24 08:32 Dose: 100 mg Trazodone HCl (Trazodone Hcl 50 Mg Tablet) 50 mg PO BEDTIME MRX1 PRN PRN Reason: Insomnia Allergies Allergies Allergy/AdvReac Type Severity Reaction Status Date / Time amoxicillin [AMOXICILLIN] Allergy Unknown RASH Verified 12/21/24 17:59 doxycycline [DOXYCYCLINE] Allergy Unknown NAUSEA Verified 12/21/24 17:59 /VOMITING penicillin V Allergy Unknown facial Verified 12/21/24 17:59 edema Sulfa (Sulfonamide Allergy Unknown rash Verified 12/21/24 17:59 Antibiotics) sulfamethoxazole Allergy Unknown FACE Verified 12/21/24 17:59 [From BACTRIM] SWELLING trimethoprim [From BACTRIM] Allergy Unknown FACE Verified 12/21/24 17:59 SWELLING atorvastatin Allergy Rash Verified 12/21/24 17:59 minocycline [Minocin] AdvReac Unknown GI Verified 12/21/24 17:59 upset/nausea Doxycycline Hyclate AdvReac Unknown GI Uncoded 12/21/24 17:59 upset/nausea Assessment & Plan Assessment & Plan (1) MDD (major depressive disorder), recurrent episode: Status: Acute Code(s): F33.9 - Major depressive disorder, recurrent, unspecified (2) Alcohol use disorder: Status: Acute Code(s): F10.90 - Alcohol use, unspecified, uncomplicated Plan Patient is a 64-year-old female with history of MDD and alcohol use disorder, who was brought in via ambulance due to intentionally overdosing on prescription medications in a suicide attempt secondary to increased life stressors. Plan: 12/24- declined jose wilson per her request. She declines antidepressant or medication to decrease alcohol use disorder. noted decreased creatinine clearance in low 30's, renal function BUN and Cr increased BUN 27, Cr 1.54, suspect related to ibuprofen use. Pt advised to follow up with nephrology, she was supposed to do so after recent medical admission. added lidocane patch for neck pain and lower back pain. Reason for continued inpatient stay Substantial Risk for: inability to function Time Spent With Patient Time: Total time managing care of this patient today ____ minutes.
[2024-12-24] MEDS: Ibuprofen 600 MG TABLET PO (13:36)
[2024-12-24 17:14] LABS: Alanine Aminotransferase 88 U/L (0-31); Albumin Level 4.8 g/dL (3.5-5.0); Alkaline Phosphatase 128 U/L (39-117); Anion Gap 18 (12-20); Aspartate Amino Transferase 82 U/L (5-31); Bilirubin Total 0.5 mg/dL (0.0-1.0); Blood Urea Nitrogen 27 mg/dL (9-16); Calcium 9.4 mg/dL (8.4-10.2); Carbon Dioxide 21 mmol/L (22-29); Chloride 101 mmol/L (96-108); Creatinine Clr Calc Pharmacy 28.4; Estimated Glomerular Filt Rate 34; Glucose Random 117 mg/dL (60-115); Potassium 4.5 mmol/L (3.3-5.1); Sodium 135 mmol/L (135-145); Total Protein 7.7 g/dL (6.5-8.0)
[2024-12-24] MEDS: Lidocaine 4 % Patch ADH..PATCH 1 PATCH TRANSDERMA (18:45)
[2024-12-24] MEDS: Ezetimibe 10 MG TABLET PO (21:19)
[2024-12-25] MEDS: Levothyroxine Sodium 50 MCG TABLET PO (06:12)
[2024-12-25] MEDS: Omeprazole 20 MG CAPSULE.DR PO (07:01)
[2024-12-25 08:45] VITALS: BP 128/76; PULSE 87; RESP 14; TEMP 36.9; O2SAT 100
[2024-12-25 09:40] VITALS: BP 128/76; PULSE 87
[2024-12-25] MEDS: Metoprolol Tartrate 50 MG TABLET PO ×2 (09:40→20:42)
[2024-12-25] MEDS: Multivitamin TABLET 1 TAB PO (09:40)
[2024-12-25 09:41] VITALS: BP 128/76
[2024-12-25] MEDS: Thiamine HCL 100 MG TABLET PO (09:41)
[2024-12-25] MEDS: lisinopriL 5 MG TABLET PO (09:41)
[2024-12-25] MEDS: Aspirin 81 MG TAB.CHEW PO (09:42)
[2024-12-25] MEDS: ROSUVASTATIN 10 MG 10 EACH PO (09:43)
[2024-12-25] MEDS: Lidocaine 4 % Patch ADH..PATCH 1 PATCH TRANSDERMA ×2 (09:48→16:10)
[2024-12-25 13:00] VITALS: BP 120/74; PULSE 75; RESP 16; TEMP 37.1; O2SAT 100
[2024-12-25 16:09] LABS: Alanine Aminotransferase 79 U/L (0-31); Albumin Level 4.7 g/dL (3.5-5.0); Anion Gap 16 (12-20); Aspartate Amino Transferase 68 U/L (5-31); Bilirubin Total 0.6 mg/dL (0.0-1.0); Blood Urea Nitrogen 21 mg/dL (9-16); Calcium 9.7 mg/dL (8.4-10.2); Carbon Dioxide 21 mmol/L (22-29); Chloride 102 mmol/L (96-108); Creatinine Clr Calc Pharmacy 31.9; Estimated Glomerular Filt Rate 39; Glucose Random 111 mg/dL (60-115); Potassium 4.5 mmol/L (3.3-5.1); Sodium 134 mmol/L (135-145); Total Protein 7.8 g/dL (6.5-8.0)
[2024-12-25 16:32] LABS: Alkaline Phosphatase 123 U/L (39-117)
[2024-12-25 20:00] VITALS: BP 136/88; PULSE 91; RESP 16; TEMP 36.4; O2SAT 100
[2024-12-25 20:42] VITALS: BP 136/88; PULSE 91
[2024-12-25] MEDS: Ezetimibe 10 MG TABLET PO (20:42)
[2024-12-25] MEDS: hydrOXYzine HCL 25 MG TABLET PO (20:42)
--- NOTE | 2024-12-25 22:29 | HO.PSYCHPN ---
Subjective Subjective Date of Service: 12/25/24 Reason For Visit: SA Subjective Notes: Conditional Voluntary and 3 Day Interim History: Pt reports improved sleep. She continues to decline medications for depression, stating suicidal statements and attempt to OD on meds while she was having an argument with son was due to alcohol intoxication. She reports she is motivated to stop using alcohol, now that with Parkinson's is going to move to his mother's house. Pt does not appear to see concerns that family has in terms of her ability to care for , who according to pt has dementia as well. She also declines medication to assist with alcohol use disorder. Review of Systems Review of Systems Constitutional : No Weight loss, No Fever, No Chills, No Night Sweats, No Fatigue, No Malaise ENT/Mouth : No Hearing loss, No Ear Pain, No Nasal Congestion, No Sinus Pain, No Hoarseness, No sore throat, No Rhinorrhea, No Swallowing Difficulty Eyes: No Eye Pain, No Swelling, No Redness, No Foreign Body, No Discharge, No Vision Changes Cardiovascular : No Chest Pain, No SOB, No Dyspnea on Exertion, No Orthopnea, No Edema, No Palpitations Respiratory : No Cough, No Sputum, No Wheezing, No Smoke Exposure, No Dyspnea Gastrointestinal : No Nausea, No Vomiting, No Diarrhea, No Constipation, No abdominal Pain, No Hematochezia, No Melena Genitourinary : no irregular bleeding, No Dysuria, No Urinary Frequency, No Hematuria, No Urinary Incontinence, No Urgency, No Flank Pain, No Urinary Flow Changes, No Hesitancy Musculoskeletal : No joint pain, No Myalgias, No Joint Swelling Skin : No Skin Lesions, No rash Neuro : No Weakness, No Numbness, No Paresthesias, No Loss of Consciousness, No Dizziness, No Headache Psych : Admits to suicide attempt, depression, no homicidal ideation, admits to heavily drinking alcohol Heme/Lymph: No Bruising, No Bleeding,No Lymphadenopathy Endocrine : No Polyuria, No Polydipsia, No Temperature Intolerance Mental Status Exam Mental Status Exam Narrative: Appearance: wearing hospital gown, fair hygiene, in NAD Behavior: cooperative Psychomotor: no agitation or retardation noted Speech: clear, normal rate/rhythm, volume, spontaneous TP: linear TC: wanting to go home soon and starting AA, saddened and upset about moving to another relative's home Mood: better Affect: congruent SI: harshalantly denies HI: denies VH/AH: none Delusions: none Insight/judgment: poor x 2. Memory/cog: alert, oriented x 3. grossly intact to conversational testing. Patient Appearance: Appropriate Patient Orientation: Person, Place, Time and Situation Level of Consciousness: Awake and Alert Patient Behavior: Appropriate, Cooperative and Good Eye Contact Mood Description: Depressed Affect Description: Depressed Ability to Follow Directions: Good Speech Pattern: Clear and Appropriate Memory Description: Intact Diagnostics Vital Signs (24Hr): Vital Signs - 24 hr 12/25/24 08:45 12/25/24 09:40 12/25/24 09:41 Temperature 98.4 F Pulse Rate 87 87 Respiratory Rate 14 Blood Pressure 128/76 128/76 128/76 Pulse Oximetry 100 Oxygen Delivery Method Room Air 12/25/24 13:00 12/25/24 20:42 Temperature 98.7 F Pulse Rate 75 91 Respiratory Rate 16 Blood Pressure 120/74 136/88 Pulse Oximetry 100 Oxygen Delivery Method Room Air BMI result Body Mass Index 21.9 Labs 12/21/24 18:32 12/25/24 15:30 Labs: Laboratory Results - last 48 hr 12/24/24 12/25/24 16:47 15:30 Sodium 135 134 L Potassium 4.5 4.5 Chloride 101 102 Carbon Dioxide 21 L 21 L Anion Gap 18 16 BUN 27 H 21 H Creatinine 1.54 H 1.37 Estim Creat Clear Calc 28.4 31.9 Estimated GFR 34 39 Random Glucose 117 H 111 Calcium 9.4 9.7 Total Bilirubin 0.5 0.6 AST 82 H 68 H ALT 88 H 79 H Alkaline Phosphatase 128 H 123 H Total Protein 7.7 7.8 Albumin 4.8 4.7 Medications Medications Current Medications Al Hydroxide/Mg Hydroxide (Magnesium Hydrox/Alum Hydrox 30 Ml Oral.Susp) 30 ml PO Q6H PRN PRN Reason: Heartburn/Nausea Aspirin (Aspirin 81 Mg Tab.Chew) 81 mg PO DAILY [facility] Last Admin: 12/25/24 09:42 Dose: 81 mg Ezetimibe (Ezetimibe 10 Mg Tablet) 10 mg PO BEDTIME [facility] Last Admin: 12/25/24 20:42 Dose: 10 mg Hydroxyzine HCl (Hydroxyzine Hcl 25 Mg Tablet) 25 mg PO Q6H PRN PRN Reason: mild anxiety Last Admin: 12/25/24 20:42 Dose: 25 mg Levothyroxine Sodium (Levothyroxine Sodium 50 Mcg Tablet) 50 mcg PO DAILY@0600 [facility] Last Admin: 12/25/24 06:12 Dose: 50 mcg Lidocaine (Lidocaine 4 % Patch Adh..Patch) 1 patch TRANSDERMA DAILY [facility]; Protocol Last Admin: 12/25/24 09:48 Dose: 1 patch Lidocaine (Lidocaine 4 % Patch Adh..Patch) 1 patch TRANSDERMA DAILY [facility]; Protocol Last Admin: 12/25/24 16:10 Dose: 1 patch Lisinopril (Lisinopril 5 Mg Tablet) 5 mg PO DAILY [facility]; Protocol Last Admin: 12/25/24 09:41 Dose: 5 mg Magnesium Hydroxide (Milk Of Magnesia 30 Ml Oral.Susp) 30 ml PO DAILY PRN PRN Reason: Constipation Metoprolol Tartrate (Metoprolol Tartrate 50 Mg Tablet) 50 mg PO BID [facility]; Protocol Last Admin: 12/25/24 20:42 Dose: 50 mg Multivitamins/Vitamin C (Multivitamin Tablet) 1 tab PO DAILY [facility] Last Admin: 12/25/24 09:40 Dose: 1 tab Nicotine Polacrilex (Nicotine Polacrilex 2 Mg Gum) 4 mg BUCCAL Q2H PRN PRN Reason: Nicotine Cravings Pt Own (Rosuvastatin (10 Mg)) 10 mg PO DAILY [facility] Last Admin: 12/25/24 09:43 Dose: 10 mg Omeprazole (Omeprazole 20 Mg Capsule.Dr) 20 mg PO DAILY@0630 [facility] Last Admin: 12/25/24 07:01 Dose: 20 mg Ondansetron HCl (Ondansetron Odt 4 Mg Tab.Rapdis) 4 mg TRANSLINGU Q6H PRN PRN Reason: Nausea and Vomiting Last Admin: 12/22/24 14:28 Dose: 4 mg Thiamine HCl (Thiamine Hcl 100 Mg Tablet) 100 mg PO DAILY [facility] Last Admin: 12/25/24 09:41 Dose: 100 mg Trazodone HCl (Trazodone Hcl 50 Mg Tablet) 50 mg PO BEDTIME MRX1 PRN PRN Reason: Insomnia Allergies Allergies Allergy/AdvReac Type Severity Reaction Status Date / Time amoxicillin [AMOXICILLIN] Allergy Unknown RASH Verified 12/21/24 17:59 doxycycline [DOXYCYCLINE] Allergy Unknown NAUSEA Verified 12/21/24 17:59 /VOMITING penicillin V Allergy Unknown facial Verified 12/21/24 17:59 edema Sulfa (Sulfonamide Allergy Unknown rash Verified 12/21/24 17:59 Antibiotics) sulfamethoxazole Allergy Unknown FACE Verified 12/21/24 17:59 [From BACTRIM] SWELLING trimethoprim [From BACTRIM] Allergy Unknown FACE Verified 12/21/24 17:59 SWELLING atorvastatin Allergy Rash Verified 12/21/24 17:59 minocycline [Minocin] AdvReac Unknown GI Verified 12/21/24 17:59 upset/nausea Doxycycline Hyclate AdvReac Unknown GI Uncoded 12/21/24 17:59 upset/nausea Assessment & Plan Assessment & Plan (1) MDD (major depressive disorder), recurrent episode: Status: Acute Code(s): F33.9 - Major depressive disorder, recurrent, unspecified (2) Alcohol use disorder: Status: Acute Code(s): F10.90 - Alcohol use, unspecified, uncomplicated Plan Patient is a 64-year-old female with history of MDD and alcohol use disorder, who was brought in via ambulance due to intentionally overdosing on prescription medications in a suicide attempt secondary to increased life stressors. Plan: 12/24- declined remeron, dced per her request. She declines antidepressant or medication to decrease alcohol use disorder. noted decreased creatinine clearance in low 30's, renal function BUN and Cr increased BUN 27, Cr 1.54, suspect related to ibuprofen use. Pt advised to follow up with nephrology, she was supposed to do so after recent medical admission. added lidocane patch for neck pain and lower back pain. 12/25 continues to decline medications for alcohol use disorder. Denies SI/HI. She reports she is interested in AA meeting on discharge. renal function improving today. Reason for continued inpatient stay Substantial Risk for: inability to function Time Spent With Patient Time: Total time managing care of this patient today ____ minutes.
[2024-12-26] MEDS: Levothyroxine Sodium 50 MCG TABLET PO (06:08)
[2024-12-26] MEDS: Omeprazole 20 MG CAPSULE.DR PO (06:51)
[2024-12-26 08:00] VITALS: BP 119/74; PULSE 85; RESP 14; TEMP 36.9; O2SAT 99
[2024-12-26] MEDS: ROSUVASTATIN 10 MG 10 EACH PO (08:52)
[2024-12-26] MEDS: Multivitamin TABLET 1 TAB PO (08:52)
[2024-12-26] MEDS: Lidocaine 4 % Patch ADH..PATCH 1 PATCH TRANSDERMA ×2 (08:53→08:55)
[2024-12-26] MEDS: Thiamine HCL 100 MG TABLET PO (08:53)
[2024-12-26] MEDS: Aspirin 81 MG TAB.CHEW PO (08:53)
[2024-12-26] MEDS: lisinopriL 5 MG TABLET PO (08:53)
[2024-12-26] MEDS: Metoprolol Tartrate 50 MG TABLET PO ×2 (08:55→22:05)
--- NOTE | 2024-12-26 13:44 | PC.NURSE ---
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 Staff told him that sending any valuables home would need to be reviewed by the team per unit guidelines. Lore verbalized understanding of this and reiterated this information to Gonzalez. Gonzalez arrived on the unit to visit with Lore. He continued to ask for valuables. Staff informed him that he would not be able to take these items unless it's approved by team.
--- NOTE | 2024-12-26 14:27 | HO.PSYCHPN ---
Subjective Subjective Date of Service: 12/26/24 Reason For Visit: SA Subjective Notes: 3 Day Interim History: Pt reports sleep was very restful. She had a showered. She reports she hopes to go home soon, feels that staying here longer is not helpful.She continues to decline medications for depression, stating suicidal statements and attempt to OD on meds while she was having an argument with son was due to alcohol intoxication. She reports she is motivated to stop using alcohol, now that with Parkinson's is going to move to his mother's house. Pt does not appear to see concerns that family has in terms of her ability to care for , who according to pt has dementia as well. She also declines medication to assist with alcohol use disorder. Review of Systems Review of Systems Constitutional : No Weight loss, No Fever, No Chills, No Night Sweats, No Fatigue, No Malaise ENT/Mouth : No Hearing loss, No Ear Pain, No Nasal Congestion, No Sinus Pain, No Hoarseness, No sore throat, No Rhinorrhea, No Swallowing Difficulty Eyes: No Eye Pain, No Swelling, No Redness, No Foreign Body, No Discharge, No Vision Changes Cardiovascular : No Chest Pain, No SOB, No Dyspnea on Exertion, No Orthopnea, No Edema, No Palpitations Respiratory : No Cough, No Sputum, No Wheezing, No Smoke Exposure, No Dyspnea Gastrointestinal : No Nausea, No Vomiting, No Diarrhea, No Constipation, No abdominal Pain, No Hematochezia, No Melena Genitourinary : no irregular bleeding, No Dysuria, No Urinary Frequency, No Hematuria, No Urinary Incontinence, No Urgency, No Flank Pain, No Urinary Flow Changes, No Hesitancy Musculoskeletal : No joint pain, No Myalgias, No Joint Swelling Skin : No Skin Lesions, No rash Neuro : No Weakness, No Numbness, No Paresthesias, No Loss of Consciousness, No Dizziness, No Headache Psych : Admits to suicide attempt, depression, no homicidal ideation, admits to heavily drinking alcohol Heme/Lymph: No Bruising, No Bleeding,No Lymphadenopathy Endocrine : No Polyuria, No Polydipsia, No Temperature Intolerance Mental Status Exam Mental Status Exam Narrative: Appearance: wearing hospital gown, fair hygiene, in NAD Behavior: cooperative Psychomotor: no agitation or retardation noted Speech: clear, normal rate/rhythm, volume, spontaneous TP: linear TC: wanting to go home soon and starting AA, saddened and upset about moving to another relative's home Mood: better Affect: congruent SI: adamantly denies HI: denies VH/AH: none Delusions: none Insight/judgment: poor x 2. Memory/cog: alert, oriented x 3. grossly intact to conversational testing. Diagnostics Vital Signs (24Hr): Vital Signs - 24 hr 12/25/24 20:00 12/25/24 20:42 12/26/24 08:00 Temperature 97.5 F 98.5 F Pulse Rate 91 91 85 Respiratory Rate 16 14 Blood Pressure 136/88 136/88 119/74 Pulse Oximetry 100 99 Oxygen Delivery Method Room Air Room Air BMI result Body Mass Index 21.9 Labs 12/21/24 18:32 12/25/24 15:30 Labs: Laboratory Results - last 48 hr 12/24/24 12/25/24 16:47 15:30 Sodium 135 134 L Potassium 4.5 4.5 Chloride 101 102 Carbon Dioxide 21 L 21 L Anion Gap 18 16 BUN 27 H 21 H Creatinine 1.54 H 1.37 Estim Creat Clear Calc 28.4 31.9 Estimated GFR 34 39 Random Glucose 117 H 111 Calcium 9.4 9.7 Total Bilirubin 0.5 0.6 AST 82 H 68 H ALT 88 H 79 H Alkaline Phosphatase 128 H 123 H Total Protein 7.7 7.8 Albumin 4.8 4.7 Medications Medications Current Medications Al Hydroxide/Mg Hydroxide (Magnesium Hydrox/Alum Hydrox 30 Ml Oral.Susp) 30 ml PO Q6H PRN PRN Reason: Heartburn/Nausea Aspirin (Aspirin 81 Mg Tab.Chew) 81 mg PO DAILY [facility] Last Admin: 12/26/24 08:53 Dose: 81 mg Ezetimibe (Ezetimibe 10 Mg Tablet) 10 mg PO BEDTIME [facility] Last Admin: 12/25/24 20:42 Dose: 10 mg Hydroxyzine HCl (Hydroxyzine Hcl 25 Mg Tablet) 25 mg PO Q6H PRN PRN Reason: mild anxiety Last Admin: 12/25/24 20:42 Dose: 25 mg Levothyroxine Sodium (Levothyroxine Sodium 50 Mcg Tablet) 50 mcg PO DAILY@0600 [facility] Last Admin: 12/26/24 06:08 Dose: 50 mcg Lidocaine (Lidocaine 4 % Patch Adh..Patch) 1 patch TRANSDERMA DAILY [facility]; Protocol Last Admin: 12/26/24 08:53 Dose: 1 patch Lidocaine (Lidocaine 4 % Patch Adh..Patch) 1 patch TRANSDERMA DAILY [facility]; Protocol Last Admin: 12/26/24 08:55 Dose: 1 patch Lisinopril (Lisinopril 5 Mg Tablet) 5 mg PO DAILY [facility]; Protocol Last Admin: 12/26/24 08:53 Dose: 5 mg Magnesium Hydroxide (Milk Of Magnesia 30 Ml Oral.Susp) 30 ml PO DAILY PRN PRN Reason: Constipation Metoprolol Tartrate (Metoprolol Tartrate 50 Mg Tablet) 50 mg PO BID [facility]; Protocol Last Admin: 12/26/24 08:55 Dose: 50 mg Multivitamins/Vitamin C (Multivitamin Tablet) 1 tab PO DAILY [facility] Last Admin: 12/26/24 08:52 Dose: 1 tab Nicotine Polacrilex (Nicotine Polacrilex 2 Mg Gum) 4 mg BUCCAL Q2H PRN PRN Reason: Nicotine Cravings Pt Own (Rosuvastatin (10 Mg)) 10 mg PO DAILY [facility] Last Admin: 12/26/24 08:52 Dose: 10 mg Omeprazole (Omeprazole 20 Mg Capsule.Dr) 20 mg PO DAILY@0630 [facility] Last Admin: 12/26/24 06:51 Dose: 20 mg Ondansetron HCl (Ondansetron Odt 4 Mg Tab.Rapdis) 4 mg TRANSLINGU Q6H PRN PRN Reason: Nausea and Vomiting Last Admin: 12/22/24 14:28 Dose: 4 mg Thiamine HCl (Thiamine Hcl 100 Mg Tablet) 100 mg PO DAILY [facility] Last Admin: 12/26/24 08:53 Dose: 100 mg Trazodone HCl (Trazodone Hcl 50 Mg Tablet) 50 mg PO BEDTIME MRX1 PRN PRN Reason: Insomnia Allergies Allergies Allergy/AdvReac Type Severity Reaction Status Date / Time amoxicillin [AMOXICILLIN] Allergy Unknown RASH Verified 12/21/24 17:59 doxycycline [DOXYCYCLINE] Allergy Unknown NAUSEA Verified 12/21/24 17:59 /VOMITING penicillin V Allergy Unknown facial Verified 12/21/24 17:59 edema Sulfa (Sulfonamide Allergy Unknown rash Verified 12/21/24 17:59 Antibiotics) sulfamethoxazole Allergy Unknown FACE Verified 12/21/24 17:59 [From BACTRIM] SWELLING trimethoprim [From BACTRIM] Allergy Unknown FACE Verified 12/21/24 17:59 SWELLING atorvastatin Allergy Rash Verified 12/21/24 17:59 minocycline [Minocin] AdvReac Unknown GI Verified 12/21/24 17:59 upset/nausea Doxycycline Hyclate AdvReac Unknown GI Uncoded 12/21/24 17:59 upset/nausea Assessment & Plan Assessment & Plan (1) MDD (major depressive disorder), recurrent episode: Status: Acute Code(s): F33.9 - Major depressive disorder, recurrent, unspecified (2) Alcohol use disorder: Status: Acute Code(s): F10.90 - Alcohol use, unspecified, uncomplicated Plan Patient is a 64-year-old female with history of MDD and alcohol use disorder, who was brought in via ambulance due to intentionally overdosing on prescription medications in a suicide attempt secondary to increased life stressors. Plan: 12/24- declined remeron, dced per her request. She declines antidepressant or medication to decrease alcohol use disorder. noted decreased creatinine clearance in low 30's, renal function BUN and Cr increased BUN 27, Cr 1.54, suspect related to ibuprofen use. Pt advised to follow up with nephrology, she was supposed to do so after recent medical admission. added lidocane patch for neck pain and lower back pain. 12/25 continues to decline medications for alcohol use disorder. Denies SI/HI. She reports she is interested in AA meeting on discharge. renal function improving today. 12/26 continue tx. 3day. Reason for continued inpatient stay Substantial Risk for: harm to self Time Spent With Patient Time: Total time managing care of this patient today ____ minutes.
[2024-12-26 19:50] VITALS: BP 145/69; PULSE 84; RESP 16; TEMP 36.9; O2SAT 100
[2024-12-26 22:05] VITALS: BP 158/76; PULSE 91
[2024-12-26] MEDS: hydrOXYzine HCL 25 MG TABLET PO (22:06)
[2024-12-26] MEDS: Ezetimibe 10 MG TABLET PO (22:06)
[2024-12-27] MEDS: Levothyroxine Sodium 50 MCG TABLET PO (06:50)
[2024-12-27] MEDS: Omeprazole 20 MG CAPSULE.DR PO (06:51)
[2024-12-27 07:42] VITALS: BP 143/81; PULSE 82; RESP 18; TEMP 36.5; O2SAT 100
[2024-12-27] MEDS: Metoprolol Tartrate 50 MG TABLET PO ×2 (08:12→21:04)
[2024-12-27] MEDS: Aspirin 81 MG TAB.CHEW PO (08:12)
[2024-12-27] MEDS: Thiamine HCL 100 MG TABLET PO (08:12)
[2024-12-27] MEDS: Multivitamin TABLET 1 TAB PO (08:12)
[2024-12-27] MEDS: lisinopriL 5 MG TABLET PO (08:12)
[2024-12-27] MEDS: ROSUVASTATIN 10 MG 10 EACH PO (08:13)
--- NOTE | 2024-12-27 09:43 | P.PNPSI_ITS ---
Subjective Subjective Date of Service: 12/27/24 Reason For Visit: SA Subjective Notes: 3 Day Interim History: 3 day up on 12/29/24. Patient reports feeling well today; she reports she is focused on returning home. Patient stated, I have lots of regret of what I did. I'm focused on staying sober . She reports sleeping well. Continues to decline psychiatric medications and reports she plans on following up with outpatient therapy. denies SI/HI/VH/AH. Medication Compliance: Yes Side effects from medications: No Mental Status Exam Mental Status Exam Narrative: Pt is alert and oriented; behavior is cooperative, friendly and calm; dressed in casual attire; mood is described as good ; eye contact appropriate; Speech is normal rate, volume and not pressured; thought process is organized and goal directed; Thought content is on discharge; denies SI/HI/AH/VH. Diagnostics Vital Signs (24Hr): Vital Signs - 24 hr 12/26/24 19:50 12/26/24 22:05 12/27/24 07:42 Temperature 98.4 F 97.7 F Pulse Rate 84 91 82 Respiratory Rate 16 18 Blood Pressure 145/69 H 158/76 H 143/81 H Pulse Oximetry 100 100 Oxygen Delivery Method Room Air Room Air BMI result Body Mass Index 21.9 Labs 12/21/24 18:32 12/25/24 15:30 Labs: Laboratory Results - last 48 hr 12/25/24 15:30 Sodium 134 L Potassium 4.5 Chloride 102 Carbon Dioxide 21 L Anion Gap 16 BUN 21 H Creatinine 1.37 Estim Creat Clear Calc 31.9 Estimated GFR 39 Random Glucose 111 Calcium 9.7 Total Bilirubin 0.6 AST 68 H ALT 79 H Alkaline Phosphatase 123 H Total Protein 7.8 Albumin 4.7 Medications Medications Current Medications Al Hydroxide/Mg Hydroxide (Magnesium Hydrox/Alum Hydrox 30 Ml Oral.Susp) 30 ml PO Q6H PRN PRN Reason: Heartburn/Nausea Aspirin (Aspirin 81 Mg Tab.Chew) 81 mg PO DAILY [facility] Last Admin: 12/27/24 08:12 Dose: 81 mg Ezetimibe (Ezetimibe 10 Mg Tablet) 10 mg PO BEDTIME [facility] Last Admin: 12/26/24 22:06 Dose: 10 mg Hydroxyzine HCl (Hydroxyzine Hcl 25 Mg Tablet) 25 mg PO Q6H PRN PRN Reason: mild anxiety Last Admin: 12/26/24 22:06 Dose: 25 mg Levothyroxine Sodium (Levothyroxine Sodium 50 Mcg Tablet) 50 mcg PO DAILY@0600 [facility] Last Admin: 12/27/24 06:50 Dose: 50 mcg Lidocaine (Lidocaine 4 % Patch Adh..Patch) 1 patch TRANSDERMA DAILY [facility]; Protocol Last Admin: 12/26/24 08:53 Dose: 1 patch Lidocaine (Lidocaine 4 % Patch Adh..Patch) 1 patch TRANSDERMA DAILY [facility]; Protocol Last Admin: 12/26/24 08:55 Dose: 1 patch Lisinopril (Lisinopril 5 Mg Tablet) 5 mg PO DAILY [facility]; Protocol Last Admin: 12/27/24 08:12 Dose: 5 mg Magnesium Hydroxide (Milk Of Magnesia 30 Ml Oral.Susp) 30 ml PO DAILY PRN PRN Reason: Constipation Metoprolol Tartrate (Metoprolol Tartrate 50 Mg Tablet) 50 mg PO BID [facility]; Protocol Last Admin: 12/27/24 08:12 Dose: 50 mg Multivitamins/Vitamin C (Multivitamin Tablet) 1 tab PO DAILY [facility] Last Admin: 12/27/24 08:12 Dose: 1 tab Nicotine Polacrilex (Nicotine Polacrilex 2 Mg Gum) 4 mg BUCCAL Q2H PRN PRN Reason: Nicotine Cravings Pt Own (Rosuvastatin (10 Mg)) 10 mg PO DAILY [facility] Last Admin: 12/27/24 08:13 Dose: 10 mg Omeprazole (Omeprazole 20 Mg Capsule.Dr) 20 mg PO DAILY@0630 [facility] Last Admin: 12/27/24 06:51 Dose: 20 mg Ondansetron HCl (Ondansetron Odt 4 Mg Tab.Rapdis) 4 mg TRANSLINGU Q6H PRN PRN Reason: Nausea and Vomiting Last Admin: 12/22/24 14:28 Dose: 4 mg Thiamine HCl (Thiamine Hcl 100 Mg Tablet) 100 mg PO DAILY [facility] Last Admin: 12/27/24 08:12 Dose: 100 mg Trazodone HCl (Trazodone Hcl 50 Mg Tablet) 50 mg PO BEDTIME MRX1 PRN PRN Reason: Insomnia Allergies Allergies Allergy/AdvReac Type Severity Reaction Status Date / Time amoxicillin [AMOXICILLIN] Allergy Unknown RASH Verified 12/21/24 17:59 doxycycline [DOXYCYCLINE] Allergy Unknown NAUSEA Verified 12/21/24 17:59 /VOMITING penicillin V Allergy Unknown facial Verified 12/21/24 17:59 edema Sulfa (Sulfonamide Allergy Unknown rash Verified 12/21/24 17:59 Antibiotics) sulfamethoxazole Allergy Unknown FACE Verified 12/21/24 17:59 [From BACTRIM] SWELLING trimethoprim [From BACTRIM] Allergy Unknown FACE Verified 12/21/24 17:59 SWELLING atorvastatin Allergy Rash Verified 12/21/24 17:59 minocycline [Minocin] AdvReac Unknown GI Verified 12/21/24 17:59 upset/nausea Doxycycline Hyclate AdvReac Unknown GI Uncoded 12/21/24 17:59 upset/nausea Assessment & Plan Assessment & Plan (1) MDD (major depressive disorder), recurrent episode: Status: Acute Code(s): F33.9 - Major depressive disorder, recurrent, unspecified (2) Alcohol use disorder: Status: Acute Code(s): F10.90 - Alcohol use, unspecified, uncomplicated Plan Patient is a 64-year-old female with history of MDD and alcohol use disorder, who was brought in via ambulance due to intentionally overdosing on prescription medications in a suicide attempt secondary to increased life stressors. Plan: 12/24- declined remeron, dced per her request. She declines antidepressant or medication to decrease alcohol use disorder. noted decreased creatinine clearance in low 30's, renal function BUN and Cr increased BUN 27, Cr 1.54, suspect related to ibuprofen use. Pt advised to follow up with nephrology, she was supposed to do so after recent medical admission. added lidocane patch for neck pain and lower back pain. 12/25 continues to decline medications for alcohol use disorder. Denies SI/HI. She reports she is interested in AA meeting on discharge. renal function improving today. 12/26 continue tx. 3day. 22:3 day up on 12/29/24. Patient reports feeling well today; she reports she is focused on returning home. Patient stated, I have lots of regret of what I did. I'm focused on staying sober . She reports sleeping well. Continues to decline psychiatric medications and reports she plans on following up with outpatient therapy. denies SI/HI/VH/AH. Patient educated on: diagnosis and medication risk/benefits Reason for continued inpatient stay Substantial Risk for: stable for discharge Time Spent With Patient Time: Total time managing care of this patient today _20___ minutes.
--- NOTE | 2024-12-27 15:35 | MHC.RECOVRN ---
AUDIT-C Brief Intervention Pt had positive screen for unhealthy alcohol use on admission, subsequently met with t/w to discuss alcohol use and recovery supports/options. This headline writer met with patient to discuss current alcohol use and concerns related to increased risk of alcohol related problems.? Pt reports drinking since she was young. It escalated over the years and is now a lot every day. Discussed how alcohol use has impacted health, including negative impact on family relationship and mental health Withdrawal History: Pt reports experiencing W/D when she stops drinking but denies any seizure hx. Treatment History: N/A Supports:?Family Discussed risk reduction strategies including drinking below the recommended limit. Provided pt with written resources including information on inpatient and outpatient treatment, [facility], harm reduction, and recovery coaching. Pt plans to Join fellowship meetings, considering [facility], will attend therapy. Pt provided with t/w contact information if questions or concerns arise. Denies other questions or concerns at this time.
[2024-12-27 21:00] VITALS: BP 159/74; PULSE 89; RESP 16; TEMP 36.7; O2SAT 100
[2024-12-27] MEDS: hydrOXYzine HCL 25 MG TABLET PO (21:04)
[2024-12-27] MEDS: Ezetimibe 10 MG TABLET PO (21:04)
[2024-12-27] MEDS: Lidocaine 4 % Patch ADH..PATCH 1 PATCH TRANSDERMA ×2 (21:05→21:07)
[2024-12-28] MEDS: Levothyroxine Sodium 50 MCG TABLET PO (06:05)
[2024-12-28] MEDS: Omeprazole 20 MG CAPSULE.DR PO (06:49)
[2024-12-28 07:44] VITALS: BP 152/73; PULSE 75; RESP 14; TEMP 36.9; O2SAT 100
[2024-12-28] MEDS: Metoprolol Tartrate 50 MG TABLET PO (08:10)
[2024-12-28] MEDS: Aspirin 81 MG TAB.CHEW PO (08:10)
[2024-12-28] MEDS: Multivitamin TABLET 1 TAB PO (08:10)
[2024-12-28] MEDS: lisinopriL 5 MG TABLET PO (08:10)
[2024-12-28] MEDS: Thiamine HCL 100 MG TABLET PO (08:10)
[2024-12-28] MEDS: ROSUVASTATIN 10 MG 10 EACH PO (08:10)
--- NOTE | 2024-12-28 11:31 | MHC.RECOVRN ---
Pt discharged prior to t/w following up regarding LASHAUN or appt for treatment for LASHAUN. Spoke with provider, provider informed t/w pt had declined all interventions and medications.
--- NOTE | 2024-12-28 13:53 | P.DS_ITS ---
DS: Providers Provider Date of Service: 12/28/24 Date of admission: 12/22/24 11:10 Date of discharge: 12/28/24 Primary care physician: Unknown Physician Admitting clinician: Leslie Breen Attending physician on admission: Alton Holloway Consults: 12/22/24 17:32 Addiction Medicine Provider Routine Consulting Provider: Addiction Covering Reason for consultation: positive audit c Attending physician on discharge: Alton Holloway Discharging clinician: Leslie Breen DS: Diagnosis Discharge Diagnosis (1) MDD (major depressive disorder), recurrent episode: Status: Acute (2) Alcohol use disorder: Status: Acute DS: Medications Discharge Medications Home Medications: Home Medications ?Medication ?Instructions ?Recorded ?Confirmed levothyroxine 88 mcg tablet 50 mcg PO DAILY@0600 03/22/24 12/21/24 ezetimibe 10 mg tablet (Zetia) 10 mg PO BEDTIME 12/21/24 12/21/24 Previous Rx's ?Medication ?Instructions ?Recorded aspirin 81 mg chewable tablet 81 mg PO DAILY #30 tabs 12/07/23 multivitamin (Daily-Armida tablet) 1 tab PO DAILY #30 tabs 12/07/23 metoprolol tartrate 50 mg tablet 50 mg PO BID 90 days #180 tabs 02/24/24 lisinopril 5 mg tablet 5 mg PO DAILY #60 tabs 08/03/24 rosuvastatin 10 mg tablet 10 mg PO DAILY #90 tabs 10/25/24 Mental Status Exam Mental Status Exam Narrative: Pt is alert and oriented; behavior is cooperative, friendly and calm; dressed in casual attire; mood is described as good ; eye contact appropriate; Speech is normal rate, volume and not pressured; thought process is organized and goal directed; Thought content is on discharge; denies SI/HI/AH/VH. Data Data Completed and Pending Completed studies during hospitalization [Text1]: 12/21/24 12/21/24 12/21/24 08:24 18:32 20:56 WBC 11.3 H RBC 3.19 L Hgb 10.3 L Hct 30.7 L MCV 96.2 MCH 32.3 MCHC 33.6 RDW 13.0 Plt Count 351 MPV 9.2 L Immature Gran % (Auto) 0.8 H Neut % (Auto) 53.1 Lymph % (Auto) 39.1 [place] % (Auto) 5.4 Eos % (Auto) 0.4 Baso % (Auto) 1.2 Lymph # (Auto) 4.4 [place] # (Auto) 0.6 Eos # (Auto) 0.0 Baso # (Auto) 0.1 Abs Immat Gran (auto) 0.09 H Absolute Neuts (auto) 6.0 Absolute Nucleated RBC 0.000 Nucleated RBC % (auto) 0.0 Sodium 133 L Potassium 4.8 Chloride 101 Carbon Dioxide 12 L Anion Gap 25 H BUN 27 H Creatinine 1.34 Estim Creat Clear Calc 37.3 Estimated GFR 40 Random Glucose 76 Estimat Average Glucose Hemoglobin A1c % Calcium 9.3 D Magnesium 2.0 Total Bilirubin 0.3 Direct Bilirubin 0.1 AST 175 H ALT 145 H Alkaline Phosphatase 167 H Troponin I High Sens 5.1 D Total Protein 7.7 Albumin 4.6 Triglycerides Cholesterol LDL Cholesterol, Calc HDL Cholesterol Vitamin B12 Folate TSH Free T4 Urine Color Yellow Urine Appearance Clear Urine pH 5.0 Ur Specific [place] 1.010 Urine Protein Trace Urine Glucose (UA) Negative Urine Ketones Trace Urine Blood Negative Urine Nitrite Negative Ur Leukocyte Esterase Trace H Urine RBC 0-2 Urine WBC 0-5 Ur Squamous Epith Cells 3-5 Urine Bacteria None Seen Hyaline Casts 3-5 Salicylates < 5.0 L Urine Opiates Screen Not Detected Ur Buprenorphine Scrn Not Detected Ur Oxycodone Screen Not Detected Urine Methadone Screen Not Detected Urine Fentanyl Screen Not Detected Acetaminophen < 3 Ur Barbiturates Screen Not Detected Ur Phencyclidine Scrn Not Detected Ur Amphetamines Screen Not Detected U Benzodiazepines Scrn Not Detected Urine Cocaine Screen Not Detected U Marijuana (THC) Screen Not Detected Ethyl Alcohol 467 H* 12/23/24 12/24/24 12/25/24 08:20 16:47 15:30 WBC RBC Hgb Hct MCV MCH MCHC RDW Plt Count MPV Immature Gran % (Auto) Neut % (Auto) Lymph % (Auto) [place] % (Auto) Eos % (Auto) Baso % (Auto) Lymph # (Auto) [place] # (Auto) Eos # (Auto) Baso # (Auto) Abs Immat Gran (auto) Absolute Neuts (auto) Absolute Nucleated RBC Nucleated RBC % (auto) Sodium 135 134 L Potassium 4.5 4.5 Chloride 101 102 Carbon Dioxide 21 L 21 L Anion Gap 18 16 BUN 27 H 21 H Creatinine 1.54 H 1.37 Estim Creat Clear Calc 28.4 31.9 Estimated GFR 34 39 Random Glucose 117 H 111 Estimat Average Glucose 108 Hemoglobin A1c % 5.4 Calcium 9.4 9.7 Magnesium Total Bilirubin 0.5 0.6 Direct Bilirubin AST 82 H 68 H ALT 88 H 79 H Alkaline Phosphatase 128 H 123 H Troponin I High Sens Total Protein 7.7 7.8 Albumin 4.8 4.7 Triglycerides 97 Cholesterol 159 LDL Cholesterol, Calc 60 HDL Cholesterol 80 Vitamin B12 1607 H Folate 14.8 TSH 2.26 Free T4 0.91 Urine Color Urine Appearance Urine pH Ur Specific [place] Urine Protein Urine Glucose (UA) Urine Ketones Urine Blood Urine Nitrite Ur Leukocyte Esterase Urine RBC Urine WBC Ur Squamous Epith Cells Urine Bacteria Hyaline Casts Salicylates Urine Opiates Screen Ur Buprenorphine Scrn Ur Oxycodone Screen Urine Methadone Screen Urine Fentanyl Screen Acetaminophen Ur Barbiturates Screen Ur Phencyclidine Scrn Ur Amphetamines Screen U Benzodiazepines Scrn Urine Cocaine Screen U Marijuana (THC) Screen Ethyl Alcohol DS: Summary Hospital Course Hospital Course: Patient is a 64-year-old female with history of MDD and alcohol use disorder, who was brought in via ambulance due to intentionally overdosing on prescription medications in a suicide attempt secondary to increased life stressors. Per crisis report, patient stated to her son, I am going to kill myself. I will be by the morning . Patient's son removed 3 pills from patient's mouth. Patient had been drinking alcohol heavily for 4 days and was intoxicated upon arrival to ED with BAL of 467. Patient was making suicidal statements stating that her son should have let her . Patient is overwhelmed with caring for her who has Parkinson's disease. Patient reports that she has been drinking alcohol in excess for years and is trying to stop . Patient reports she has been struggling with increased depression and alcohol for the past 2 years. She does not have outpatient psychiatric providers and is not on psychiatric medications. denies history of inpatient psychiatric hospitalizations, CCS or PHP admissions. Denies history of SA/SIB. During admission assessment, patient presents alert and oriented x3. Calm and cooperative. Patient reports feeling depressed ; patient stated, I was really tired and overwhelmed. I take care of my and my mother when I can. I do it all alone. The pressure of everything got to me in that moment . Patient reports that she feels relieved that she did not swallow the pills because of what it would do to the rest of her family and her . Patient stated, I know I can bounce back. I have before . Patient reports she has no history of taking psychiatric medications however, has had depression for a long time with the hopes that it would go away without medication . Patient reports that she drinks as a way of coping with stress. She does not have outpatient psychiatric providers at this time but would like referrals. pt reports poor sleep. Discussed starting on Remeron; risks/benefits reviewed; pt agreed to trial. Plan: 3 day 5 minute checks CIWA protocol Continue home medications Obtain collateral Start: Remeron 7.5mg PO bedtime Referral to outpatient psychiatric providers Encourage groups Discharge planning declined remeron, dced per her request. She declines antidepressant or medication to decrease alcohol use disorder. noted decreased creatinine clearance in low 30's, renal function BUN and Cr increased BUN 27, Cr 1.54, suspect related to ibuprofen use. Pt advised to follow up with nephrology, she was supposed to do so after recent medical admission. added lidocane patch for neck pain and lower back pain. continues to decline medications for alcohol use disorder. Denies SI/HI. She reports she is interested in AA meeting on discharge. renal function improving today. 3 day up on 12/29/24. Patient reports feeling well today; she reports she is focused on returning home. Patient stated, I have lots of regret of what I did. I'm focused on staying sober . She reports sleeping well. Continues to decline psychiatric medications and reports she plans on following up with outpatient therapy. denies SI/HI/VH/AH. Status at Discharge Cognitive/behavioral status at discharge: Patient has insight and demonstrates good judgment in terms of wanting to pursue treatment. Patient has a safety plan that includes presenting to the closest ER or calling 911 if feeling unsafe. Functional status at discharge: independent ambulation Overall status at discharge: patient is back to baseline Time Spent with Patient Time attestation: Total time managing care of this patient today _20___ minutes. Time spent: Less than 30 minutes Discharge Plan Discharge Anticipated Discharge Date/Time: 12/28/24 10:00 Patient Disposition: Home, Self-Care Discharge Diagnosis: MDD, Alcohol use d/o Referrals: Therapy [Other] - 1 Week (*[facility] ) [facility] [Provider Group] - 1 Week (12-27-24 [facility] was added to patients chart. Please call [phone] to schedule your follow up appt within 7-10 days of discharge.) Discharge Medications: Continued metoprolol tartrate 50 mg tablet 50 mg PO BID 90 Days Qty: 180 3RF rosuvastatin 10 mg tablet 10 mg PO DAILY Qty: 90 3RF multivitamin [Daily-Armida] Tablet 1 tab PO DAILY Qty: 30 0RF aspirin 81 mg Tablet,Chewable 81 mg PO DAILY Qty: 30 0RF ezetimibe [Zetia] 10 mg tablet 10 mg PO BEDTIME levothyroxine 88 mcg tablet 50 mcg PO DAILY@0600 lisinopril 5 mg tablet 5 mg PO DAILY Qty: 60 3RF Discharge Orders: Discharge Order (Routine); Ordered 12/28/24 Ordered By: Leslie Breen Diet: Regular diet Activity on Discharge: As tolerated Stand Alone Forms: Patient Portal Discharge page, Community Support Print Language: Danish Care Plan Goals: Maintain mood and safe behaviors Take medications as prescribed Continue to pursue sobriety Practice coping skills Continue with outpatient providers and reach out to them as needed Health Concerns: Mood stability and behaviors Sobriety Plan of Treatment: Follow up with your PCP, psychiatric provider and other outpatient providers regarding above concerns Take medications as prescribed Assessment: Patient has insight and demonstrates good judgment in terms of wanting to pursue treatment. Patient has a safety plan that includes presenting to the closest ER or calling 911 if feeling unsafe. Discharge Date/Time: 12/28/24 10:24
== END 2024-12-28 10:24 | disposition home or self-care (01) | DRG 885 ==
LOC: HO.ED 22:49 → HO.PADLT16 12-22 11:14
PROVIDERS: Social Worker; Admitting Provider Psychiatry & Neurology Psychiatry; Emergency Provider Emergency Medicine; Responsible Provider Registered Nurse; Visit Provider Psychiatry & Neurology Psychiatry
DX: F33.9 Major depressive disorder, recurrent, unspecified (principal); E03.9 Hypothyroidism, unspecified; Y90.8 Blood alcohol level of 240 mg/100 ml or more; F10.129 Alcohol abuse with intoxication, unspecified; Z79.82 Long term (current) use of aspirin; Z79.890 Hormone replacement therapy; Z79.899 Other long term (current) drug therapy
CPT/HCPCS: 36415; 80048; 80053; 80061; 80076; 80143; 80179; 80307; 81001; 81003; 82607; 82746; 83036; 83735; 84439; 84443; 84484; 85025; 93005; 99285; S9485

== ENCOUNTER → 2024-12-22 09:08 | Outpatient (BNV) | payer OTHER, SELFPAY | PROVIDERS: Admitting Provider Psychiatry & Neurology Psychiatry; Emergency Provider Emergency Medicine; Visit Provider Internal Medicine Cardiovascular Disease | DX: R94.31 Abnormal electrocardiogram [ECG] [EKG] (principal); Z13.6 Encounter for screening for cardiovascular disorders | CPT/HCPCS: 93010 ==

== ENCOUNTER → 2024-12-22 11:10 | Outpatient (BNV) | payer MEDICARE, SELFPAY | PROVIDERS: Admitting Provider Psychiatry & Neurology Psychiatry; Emergency Provider Emergency Medicine; Responsible Provider Registered Nurse; Visit Provider Registered Nurse | DX: F33.2 Major depressive disorder, recurrent severe without psychotic features (principal); F10.90 Alcohol use, unspecified, uncomplicated | CPT/HCPCS: 90792; 99231; 99232; 99238 ==

== ENCOUNTER 2025-01-04 08:44 | Day surgery (SDC) | payer OTHER, SELFPAY ==
--- OUTSIDE RECORDS SUMMARY | 2024-11-03 14:02 | XMS_ITS | Patient Health Record ---
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 Name Role Phone Alec COLEMAN, Shazia Primary Care Provider Unavail able Emerson Norris Unavailable [phone] ALLERGIES Allergen (clinical drug ingredient) Drug/Non Drug Allergy documented on EMR Reaction Allergy Type Onset Date Status Penicillin Unknown Drug Allergy Active atorvastatin Atorvastatin Unknown Drug Allergy A ctive Bactrim Unknown Drug Allergy Active REASON FOR REFERRAL Referring Provider First Name Fawn Referring Provider Last Name Scott Referred Organization [facility] Referred Provider Emerson Norris Referred Address [address],[place], [place],[address], Referred Provider Specialty Gastroentero logy Referral Priority Routine MEDICATIONS Medication SIG (Take, Route, Frequency, Duration) Notes Start Date End Date Status Metoprolol Tartrate 50 MG TAKE ONE TABLE T BY MOUTH TWICE A DAY Oral for 90 Active Diphenhydramine 1 tab Oral for 14 days 09/30/2024 Active Rosuvastatin Calcium 10 MG TAKE ONE TABL ET BY MOUTH EVERY DAY Oral for 30 Active Aspirin 81 81 MG 1 tablet Orally Once a day for 30 day(s) 09/30/2024 Active Cyanocobalamin 1000 MCG 1 tablet Orally Once a day for 30 day(s) 09/30/2024 Active Atorvastatin Calcium 80 MG TAKE ONE TABL ET BY MOUTH EVERY EVENING AT BEDTIME Oral for 30 Not-Taking Esomeprazole Magnesium 20 MG 1 capsule 1/2 to 1 hour before morning meal Orally Once a day 09/30/2024 Active Cholecalciferol 50 MCG (2000 UT) 1 capsule Orally Once a day for 30 day(s) 09/30/2024 Active Lisinopril 5 MG TAKE ONE TABLET BY MOUTH EVERY DAY Oral for 60 Active Multivitamin - 1 tablet Orally Once a day for 30 day(s) 09/30/2024 Active Ezetimibe 10 MG TAKE ONE TABLET BY MOUTH EVERY DAY Oral for 90 Active Thiamine HCl 100 MG 1 tablet Orally Once a day for 30 day(s) 09/30/2024 Active Ticagrelor 90 MG 1 tablet Orally Twic e a day for 30 day(s) 09/30/2024 Active Levothyroxine Sodium 75 MCG 1 tablet in the morning on an empty stomach Orally Once a day for 30 day(s) 09/30/2024 Active metroNIDAZOLE 0.75 % 1 application Externally Twice a day 09/30/2024 Active IMMUNIZATIONS Vaccine Route Administration Date Status Comme nts Influenza Unknown 05/31/2024 Administered SOCIAL HISTORY Tobacco Use: Social History Observation Description Date Details (start date - stop date) Never Smoker NA - NA Sex Assigned At : Social History Observation Description Sex Assigned At Unknown Tobacco Use/Smoking Question Answer Notes Patient is a nonsmoker Alcohol Screen Question Answer Notes Did you have a drink contain ing alcohol in the past year? Yes How often did you have a dri nk containing alcohol in the past year? 2 to 4 times a month (2 points) How many drinks did you have on a typical day when you were drinking in the past year? 1 or 2 drinks (0 point) How often did you have 6 or more drinks on one occasion in the past year? Never (0 point) Points 2 Interpretation Negative PROBLEMS Problem Type ICD Code Onset Dates Problem Status W/U Status Risk SNOMED Code Notes Problem Colon cancer screening (Z12.11) Active confirmed Colon cancer screening (087346590) Problem Personal history of colonic polyps (Z86.010) Active confirmed History of poly p of colon (situation) (403412537) Problem Nausea (R11.0) Active confirmed Nausea (782793031) Problem Early satiety (R68.81) Active confirmed Early satiety (869237585) Problem Anemia (D64.9) Active confirmed Anemia (922758643) Problem Chronic GERD (K21.9) Active confirmed Gastroesophagea l reflux disease (disorder) (106032905) VITAL SIGNS Temperature 97.7 degrees Fahrenheit 09/30/2024 Blood pressure diastolic 00 mm Hg 09/30/2024 Height 5 ft in 09/30/2024 Blood pressure systolic 000 mm Hg 09/30/2024 Weight 122 lb 6 oz lbs 09/30/2024 BMI 23.90 kg/m2 09/30/2024 Encounters Encounter Location Date Provider Diagnosis [facility] [address] [place] [phone] 09/30/2024 Emerson Norris Anemia D64.9 ; Personal history of colonic polyps Z86.010 ; Colon cancer screening Z12.11 ; Chronic GERD K21.9 ; Early satiety R68.81 and Nausea R11.0 [facility] [address] [place] [phone] 09/30/2024 Emerson Norris ASSESSMENTS Encounter Date Diagnosis Assessment Notes Treatment Notes Treatment Clinical Notes 09/30/2024 Personal history of colonic polyps (ICD-10 - Z86.010) 09/30/2024 Anemia (ICD-10 - D64.9) We will get a clearance letter from Dr. Parker for your December, GI procedures Do not take the Brilinta for 2 days before the procedures Do not take aspirin on the day of the procedures Need your 09/2024 [facility] 09/30/2024 Colon cancer screening (ICD-10 - Z12.11) 09/30/2024 Chronic GERD (ICD-10 - K21.9) 09/30/2024 Early satiety (ICD-10 - R68.81) 09/30/2024 Nausea (ICD-10 - R11.0) PLAN OF TREATMENT Future Test Test Name Order Date UPPER GI ENDOSCOPY 09/30/2024 COLONOSCOPY 09/30/2024 Next Appt Details Provider Name:Emerson Norris , 01/04/2025 10:30:00 AM, [address] [place] [address] , [place], [place], [id number], Insurance Providers Payer Name Payer Address Payer Phone Subscriber Number Group Number Insured Name Patient Relationship to Insured Coverage Start Date Coverage End Date FORMERLY [facility] [employer] [address] [place] [address] [id number] JACOBY MAXWELL Self - patient is the insured MEDICAL (GENERAL) HISTORY Medical History History ICD Code Hypertension ME in November 2023 with a sten t placed in LAD-Dr. Parker--started on 81 mg aspirin and Brilinta Denies DM,CVA,Lung disease,renal disease Hyperlipidemia Breast cancer Colonoscopy age 48 was neg with [address] Yvette riddle at [facility] Colonoscopy 2019 with a single tubular a denoma removed by Dr. León GERD-Upper endoscopy in 2019 with the finding of a mild distal esophagitis and with dilation of a distal esophageal Schatzki ring with a 20 mm balloon by Hypothyroidism Anemia--hemoglobin of 8.0 in December of 2023 and hemoglobin of 8.6 in April of 2024-- normal iron studies in December of 2023 with an iron of 36 and iron saturation of 21%, she had normal B12 and folate levels in December of 2023 she had a Hemoccult negative stool specimen December 2023 Surgical History Surgery Date(Month/Year) 1987 Mastectomies bilateral--left sided cance r Attempted breast reconstruction but had to remove implants Hospitalization History Reason Date(Month/Year)
--- OUTSIDE RECORDS SUMMARY | 2024-11-03 14:02 | XMS_ITS ---
Author Organization [facility] Address [address] [place] [phone] Care Team Providers Care Science Technician Name Role Phone Alec COLEMAN, Shazia Primary Care Provider Unavail able Emerson Norris Unavailable [phone] REASON FOR VISIT [facility] referral Encounters Encounter Location Date Provider Diagnosis [facility] [address] [place] [phone] 09/30/2024 Emerson Norris PLAN OF TREATMENT Next Appt Details Provider Name:Emerson Norris , 01/04/2025 10:30:00 AM, [address] [place] [address] , [place], [place], [phone],
[2025-01-02 13:29] VITALS: BMI 24.2
--- NOTE | 2025-01-03 08:32 | P.CONAN_ITS ---
Documented by User: Yuni Watts NP 01/03/25 08:39 HPI - Anesthesia Eval Consult details Narrative: 64yo F for Upper Endoscopy and Colonoscopy [place] [place]: 11/25/2023 with NSTEMI on background of chronic alcoholism. Echocardiography was concerning for takotsubo cardiomyopathy but when she was taken for cardiac catheterization we noticed mid LAD plaque rupture which was treated with drug-eluting stent. (ECHO 02/2024 with nml EF) 12/2024 Behavioral Health admit for ETOH intox/SI PMFSH Active Problems Active Problems: All Active Problems Alcohol use disorder (Acute) MDD (major depressive disorder), recurrent episode (Acute) Alcohol intoxication (Acute) Suicide attempt (Acute) Coronary artery disease (Acute) Stable angina (Acute) History of alcohol abuse (Acute) Anemia (Acute) Cardiomyopathy (Acute) ARAM (acute kidney injury) (Acute) Non-ST elevation (NSTEMI) myocardial infarction (Acute) Hypertension (Acute) S/P cardiac catheterization (Acute) Past Medical History Medical History Breast cancer Anemia Cardiomyopathy Depression CAD (coronary artery disease) Marijuana use Hypothyroidism Hyperlipidemia Hypertension Alcohol abuse Surgical History Surgical History H/O: section Hx of bilateral mastectomy History of esophagogastroduodenoscopy (EGD) H/O colonoscopy S/P cardiac catheterization Social History Social History Household Members: Family Housing: House Are you a primary rn patient care to a significant other at home: No Do you presently have visiting nurse or other home services: No Alcohol intake: current Alcohol intake frequency: a few times a week Alcohol type: wine Comment: 5 min checks Patient Tobacco Use Status: Former Tobacco user Second Hand Smoke Exposure: No Use of substances other than those prescribed or required for medical reasons: No Substance Use Type: Marijuana Are you DNR?: No Advance Directives: No Advance Directives Information Provided: Yes service: Yes (The patient was in the [employer] for 4 years.) Sexual orientation: Straight/Heterosexual Meds Allergies Allergy/AdvReac Type Severity Reaction Status Date / Time amoxicillin [AMOXICILLIN] Allergy Intermediate RASH Verified 01/04/25 09:19 atorvastatin Allergy Intermediate Rash Verified 01/04/25 09:19 doxycycline [DOXYCYCLINE] Allergy Intermediate NAUSEA Verified 01/04/25 09:19 /VOMITING penicillin V Allergy Intermediate facial Verified 01/04/25 09:19 edema Sulfa (Sulfonamide Allergy Intermediate Facial Verified 01/04/25 09:19 Antibiotics) Swelling sulfamethoxazole Allergy Intermediate Facial Verified 01/04/25 09:19 [From BACTRIM] Swelling trimethoprim [From BACTRIM] Allergy Intermediate Facial Verified 01/04/25 09:19 Swelling minocycline [Minocin] AdvReac Intermediate GI Verified 01/04/25 09:19 upset/nausea Home Medications ?Medication ?Instructions ?Recorded ?Confirmed ?Last Taken ?Type levothyroxine 88 mcg tablet 50 mcg PO DAILY@0600 03/22/24 01/04/25 01/04/25 History ezetimibe 10 mg tablet (Zetia) 10 mg PO BEDTIME 12/21/24 01/02/25 12/20/24 21:00 History Exam Height,Weight and Vital Signs: Height 5 ft Weight 56.245 kg Pertinent Lab Results Pertinent Lab Results: Laboratory Tests 12/21/24 12/25/24 18:32 15:30 WBC 11.3 H Hgb 10.3 L Hct 30.7 L Plt Count 351 Sodium 134 L Potassium 4.5 Chloride 102 Carbon Dioxide 21 L BUN 21 H Creatinine 1.37 Narrative Narrative: EKG 12/2024 Vent. Rate : 84 BPM Atrial Rate : 84 BPM P-R Int : 156 ms QRS Dur : 76 ms QT Int : 422 ms P-R-T Axes : 52 53 60 degrees QTcB Int : 498 ms Normal sinus rhythm Septal infarct , age undetermined Abnormal ECG When compared with ECG of 05-Dec-2023 18:14, Septal infarct is now Present T wave inversion no longer evident in Inferior leads T wave inversion less evident in Anterolateral leads QT has shortened ECHO 2023 Conclusions: - Normal LV ejection fraction of 60-65% with impaired relaxation filling pattern Findings Left Ventricle Normal left ventricular size, thickness, and systolic function. The visually estimated ejection fraction is between 60-65%. There is no evidence of regional wall motion abnormalities. Spectral Doppler is indicative of an impaired relaxation filling pattern. E/E prime ratio is between 8 and 15 consistent with indeterminate filling pressures. Assessment and Plan Assessment Anesthesia Assessment: Chart Reviewed Documented by User: Destinee Gerardo MD 01/04/25 11:48 HPI - Anesthesia Eval Consult details Narrative: 64yo F for Upper Endoscopy and Colonoscopy [place] [facility] [place]: 11/25/2023 with NSTEMI on background of chronic alcoholism. Echocardiography was concerning for takotsubo cardiomyopathy but when she was taken for cardiac catheterization we noticed mid LAD plaque rupture which was treated with drug-eluting stent. (ECHO 02/2024 with nml EF). Last dose of Brilinta 12/09/2412/2024 Behavioral Health admit for ETOH intox/SI PMFSH Active Problems Active Problems: All Active Problems Alcohol use disorder (Acute) MDD (major depressive disorder), recurrent episode (Acute) Alcohol intoxication (Acute) Suicide attempt (Acute) Coronary artery disease (Acute) Stable angina (Acute) History of alcohol abuse (Acute)- Last 12/21/24 Anemia (Acute) Cardiomyopathy (Acute) ARAM (acute kidney injury) (Acute) Non-ST elevation (NSTEMI) myocardial infarction (Acute) Hypertension (Acute) S/P cardiac catheterization (Acute) Past Medical History Medical History Breast cancer Anemia Cardiomyopathy Depression CAD (coronary artery disease) Marijuana use Hypothyroidism Hyperlipidemia Hypertension Alcohol abuse Family History Family history of problems with anesthesia: No Surgical History Surgical History H/O: section Hx of bilateral mastectomy History of esophagogastroduodenoscopy (EGD) H/O colonoscopy S/P cardiac catheterization History of Problems with Anesthesia: No Social History Social History Household Members: Family Housing: House Are you a primary rn patient care to a significant other at home: No Do you presently have visiting nurse or other home services: No Alcohol intake: current Alcohol intake frequency: a few times a week Alcohol type: wine Comment: 5 min checks Patient Tobacco Use Status: Former Tobacco user Second Hand Smoke Exposure: No Use of substances other than those prescribed or required for medical reasons: No Substance Use Type: Marijuana Are you DNR?: No Advance Directives: No Advance Directives Information Provided: Yes service: Yes (The patient was in the [employer] for 4 years.) Sexual orientation: Straight/Heterosexual Meds Allergies Allergy/AdvReac Type Severity Reaction Status Date / Time amoxicillin [AMOXICILLIN] Allergy Intermediate RASH Verified 01/04/25 09:19 atorvastatin Allergy Intermediate Rash Verified 01/04/25 09:19 doxycycline [DOXYCYCLINE] Allergy Intermediate NAUSEA Verified 01/04/25 09:19 /VOMITING penicillin V Allergy Intermediate facial Verified 01/04/25 09:19 edema Sulfa (Sulfonamide Allergy Intermediate Facial Verified 01/04/25 09:19 Antibiotics) Swelling sulfamethoxazole Allergy Intermediate Facial Verified 01/04/25 09:19 [From BACTRIM] Swelling trimethoprim [From BACTRIM] Allergy Intermediate Facial Verified 01/04/25 09:19 Swelling minocycline [Minocin] AdvReac Intermediate GI Verified 01/04/25 09:19 upset/nausea Home Medications ?Medication ?Instructions ?Recorded ?Confirmed ?Last Taken ?Type levothyroxine 88 mcg tablet 50 mcg PO DAILY@0600 03/22/24 01/04/25 01/04/25 History ezetimibe 10 mg tablet (Zetia) 10 mg PO BEDTIME 12/21/24 01/02/25 12/20/24 21:00 History Exam Height,Weight and Vital Signs: Height 5 ft Weight 56.245 kg Vital Signs Temp Pulse Resp BP Pulse Ox O2 Del Method 01/04/25 09:44 99.0 F 74 14 139/73 100 Room Air Airway Mallampati Class: II TM Dist: >3cm Neck ROM: Full Loose/Missing/Broken Teeth: Yes (Some dental extractions. Broken tooth bottom Right back. Denies loose teeth ) Heart: RRR + murmur Lungs: CTAB Assessment and Plan Assessment Anesthesia Assessment: Anesthesia Plan Discussed and Chart Reviewed Final Anesthetic Review Family History of Problems with Anesthesia: No History of Problems with Anesthesia: No NPO: Yes ASA Class: III Final Preanesthetic Review: No Changes in Pt Med Stat, Meds/Allgs Chart Reviewed, Consent Obtained/Reviewed and Anes Risks/Benef Reviewed Patient Risk: Intermediate Procedure Risk: Low Assessment/Block/Sedation in SS: Assess/Block/Sedation-SS Anesthetic Plan Anesthetic Plan: TIVA Disposition: Standard PACU
[2025-01-04 09:44] VITALS: BP 139/73; PULSE 74; RESP 14; TEMP 37.2; O2SAT 100; BMI 24.6
[2025-01-04] MEDS: Lactated Ringers 1,000 ML 100 ML IVCONT (09:47)
[2025-01-04 12:21] VITALS: BP 113/59; PULSE 74; RESP 18; TEMP 36.6; O2SAT 100
--- NOTE | 2025-01-04 12:30 | P.BOP_ITS ---
Brief Operative Note Date of Service: 01/04/25 Pre-op diagnosis: Anemia, GERD, Screening Post-op diagnosis: other (Hiatal hernia, Diverticulosis) Procedure: EGD with biopsies, Colonoscopy to the cecum Surgeon: Emerson Norris MD Anesthesia: MAC Was an [employer] used for this Procedure?: No Estimated blood loss (mL): 2.0 Pathology: other (A. Descending duodenum B. Gastric antrum C. EG Junction at 36cm) Condition: stable Disposition: PACU
[2025-01-04 12:35] VITALS: BP 139/85; PULSE 75; RESP 18; O2SAT 100
[2025-01-04 12:50] VITALS: BP 152/77; PULSE 78; RESP 18; TEMP 36.3; O2SAT 100
--- NOTE | 2025-01-05 07:49 | OP_ITS ---
DATE OF SERVICE: 01/04/2025 SURGEON: Emerson Norris MD INDICATIONS: The patient presents for evaluation of some gastroesophageal reflux, early satiety, previous weight loss, personal history of tubular adenoma of the colon, colorectal cancer screening, and chronic anemia. Full consent has been obtained from her for both procedures, including risks of bleeding and perforation. PREOPERATIVE DIAGNOSIS: POSTOPERATIVE DIAGNOSIS: PROCEDURE PERFORMED: Esophagogastroduodenoscopy with biopsies, and colonoscopy to the cecum. ESTIMATED BLOOD LOSS: COMPLICATIONS: ANESTHESIA: Medication used; monitored anesthesia care. ASSISTANTS: SPECIMENS: PREOPERATIVE DIAGNOSES: Gastroesophageal reflux, early satiety, weight loss, history of tubular adenoma of the colon, chronic anemia, and colorectal cancer screening. POSTOPERATIVE DIAGNOSES: Gastroesophageal reflux, early satiety, weight loss, history of tubular adenoma of the colon, chronic anemia, and colorectal cancer screening, hiatal hernia, rule out celiac disease, rule out Helicobacter pylori, diverticulosis, and internal hemorrhoids. DESCRIPTION OF PROCEDURE: The patient was placed in the left lateral decubitus position. The Olympus videogastroscope was passed in the posterior oropharynx and upper esophagus under direct vision. The scope was passed slowly into the distal esophagus. The gastroesophageal junction appeared normal other than some very minimal irregularity consistent with reflux, but without any sign of esophagitis nor any definitive Munguia mucosa. There was no stricture nor mass. The scope entered the stomach. There was a small hiatal hernia. The hiatal hernia mucosa appeared normal. The scope was advanced to the pylorus and the duodenum was cannulated to the descending portion of the duodenum including the bulb appeared normal without mass or ulceration. Biopsies were obtained from the 2nd and 3rd portions of duodenum. The scope withdrawn back to the stomach. The gastric antrum and body appeared normal with good peristalsis. Biopsies were obtained from the antrum. The scope was retroflexed visualizing the proximal stomach carefully which appeared normal, without any sign of mass or ulceration. The scope was straightened and withdrawn back in the esophagus. Biopsies were obtained at the EG junction at 36 cm. Proximal to this, the esophageal mucosa appeared normal. The scope was withdrawn from the patient. She was turned around for the colonoscopy. The digital rectal exam revealed no abnormalities. The Olympus videopediatric colonoscope was entered into the rectum, advanced to the cecum with the assistance of abdominal wall pressure. Once in the cecum, I did identify cecal pouch after copious irrigation and suctioning. Visualization became very good. The entire cecum, including the appendiceal orifice and ileocecal valve appeared normal. There was transillumination of light deep in the right lower quadrant. The scope was slowly withdrawn assessing all mucosal surfaces carefully. Preparation became very good throughout the colon after suctioning and irrigation. I did not visualize any sign of polyps, colitis, nor angiodysplasia. There was a mild amount of sigmoid diverticulosis. In the rectum, scope was retroflexed visualizing internal hemorrhoids, but no other pathology. The rectal mucosa appeared normal. The scope was straightened and withdrawn from the patient. She tolerated both procedures well and was returned to recovery area in stable condition. IMPRESSION: 1. Hiatal hernia. 2. Rule out celiac disease. 3. Rule out Helicobacter pylori. 4. Diverticulosis. 5. Internal hemorrhoids. PLAN: The results of the biopsies will be checked. I would recommend a repeat colonoscopy in 5 years for further screening. She was advised to resume her aspirin by tomorrow morning. She took her last dose of aspirin yesterday and just held it today. She was advised not to use any NSAIDs for 1 week. Her most recent hemoglobin had come up to 10.3 as of December 21 with a normal MCV. Earlier this month, she also had a normal B12 and folate level. Her most recent iron studies in December 2023 showed an iron of 36, iron saturation 21%. She has not had any recent ferritin levels. At this point, I will plan to see her in the fall for a followup visit. She had been on Brilinta up until recently along with baby aspirin and also has been using some significant amounts of alcohol, all of which contribute to the anemia as well. She is now off Brilinta and reports having cut down significantly on the alcohol intake. I will plan to check an another CBC and iron profile including a ferritin level in the next month or so. Depending upon her clinical course, she may need a small bowel capsule study, but if the anemia continues to improve and there was no sign of iron deficiency, then I would hold off on that. MD NERI Handley/HIRA / [id number]
== END 2025-01-04 13:27 | disposition home or self-care (01) ==
PROVIDERS: PCP Nurse Practitioner Family; Visit Provider Internal Medicine
PROC: (CPT 45378; principal; 2025-01-04 10:30)
DX: Z12.11 Encounter for screening for malignant neoplasm of colon (principal); K57.30 Diverticulosis of large intestine without perforation or abscess without bleeding; K64.8 Other hemorrhoids; Z86.0101 Personal history of adenomatous and serrated colon polyps; D64.9 Anemia, unspecified; K22.70 Barrett's esophagus without dysplasia; K29.80 Duodenitis without bleeding; K44.9 Diaphragmatic hernia without obstruction or gangrene; K21.9 Gastro-esophageal reflux disease without esophagitis; I10 Essential (primary) hypertension; E78.5 Hyperlipidemia, unspecified; E03.9 Hypothyroidism, unspecified; F33.9 Major depressive disorder, recurrent, unspecified; F10.11 Alcohol abuse, in remission; I25.2 Old myocardial infarction; F12.90 Cannabis use, unspecified, uncomplicated; Z85.3 Personal history of malignant neoplasm of breast; Z79.82 Long term (current) use of aspirin; Z79.899 Other long term (current) drug therapy
CPT/HCPCS: 45378; 43239; 88305; 88313; 88342; J2003; J2704

== ENCOUNTER 2025-01-11 17:54 | Emergency (ER) | payer OTHER, SELFPAY ==
[2025-01-11 18:05] VITALS: BP 198/111; PULSE 90; O2SAT 100
[2025-01-11 18:07] VITALS: BP 192/91; PULSE 84; RESP 16; TEMP 36.6; O2SAT 98; BMI 19.2
[2025-01-11 19:20] VITALS: BP 137/65; PULSE 76; RESP 13; TEMP 36.8; O2SAT 95
--- NOTE | 2025-01-11 19:40 | ECG_ITS ---
Test Reason : ETOH Blood Pressure : */* mmHG Vent. Rate : 85 BPM Atrial Rate : 85 BPM P-R Int : 148 ms QRS Dur : 70 ms QT Int : 402 ms P-R-T Axes : 54 42 52 degrees QTcB Int : 478 ms Normal sinus rhythm Septal infarct (cited on or before 22-Dec-2024) Abnormal ECG When compared with ECG of 22-Dec-2024 11:14, No significant changes seen Referred By: Generic ED Physician Electronically Signed By: NAM GARRETT
[2025-01-11 19:57] LABS: MANUAL DIFF FLAG NO
[2025-01-11 19:58] LABS: Basophils Absolute Auto 0.1 X10*3/uL (0.0-0.2); Basophils Percent Auto 1.3 % (0-2); Eosinophils Absolute Auto 0.3 X10*3/uL (0.0-0.4); Eosinophils Percent Auto 3.6 % (0-4); Hematocrit 28.9 % (37.0-47.0); Hemoglobin 10.1 g/dl (12.0-16.0); Imm Gran Abs Auto 0.05 X10*3/uL (0.00-0.03); Imm Gran Pct Auto 0.6 % (0.0-0.4); Lymphocytes Absolute Auto 3.8 X10*3/uL (1.2-4.9); Lymphocytes Percent Auto 44.7 % (20-40); Mean Corpuscular HGB Conc 34.9 g/dl (31.0-35.0); Mean Corpuscular Hemoglobin 32.6 pg (27.0-33.0); Mean Corpuscular Volume 93.2 fL (80.0-98.0); Mean Platelet Volume 9.2 fL (9.4-12.3); Monocytes Absolute Auto 0.6 X10*3/uL (0.1-1.2); Monocytes Percent Auto 6.9 % (2-11); Neutrophils Absolute Auto 3.7 x10*3/uL (2.0-8.3); Neutrophils Percent Auto 42.9 % (45-73); Platelet Count 352 X10*3/uL (160-400); Red Cell Distribution Width 13.2 % (11.0-16.0); White Blood Count 8.6 X10*3/uL (4.8-10.8)
[2025-01-11 20:12] LABS: Alanine Aminotransferase 42 U/L (0-31); Albumin Level 4.4 g/dL (3.5-5.0); Alkaline Phosphatase 112 U/L (39-117); Anion Gap 19 (12-20); Aspartate Amino Transferase 62 U/L (5-31); Bilirubin Total 0.2 mg/dL (0.0-1.0); Blood Urea Nitrogen 12 mg/dL (9-16); Calcium 9.6 mg/dL (8.4-10.2); Carbon Dioxide 15 mmol/L (22-29); Chloride 106 mmol/L (96-108); Creatinine Clr Calc Pharmacy 52.2; Estimated Glomerular Filt Rate 58; Ethanol 410 mg/dL; Glucose Random 86 mg/dL (60-115); Potassium 4.6 mmol/L (3.3-5.1); Sodium 135 mmol/L (135-145); Total Protein 7.3 g/dL (6.5-8.0)
[2025-01-11 20:57] VITALS: BP 150/88; PULSE 79; RESP 12; TEMP 36.7; O2SAT 98
[2025-01-11 22:12] LABS: Amphetamine Screen Urine Not Detected (Not Detect); Barbiturates, Urine Not Detected (Not Detect); Benzodiazepines Screen Urine Not Detected (Not Detect); Buprenorphine Scr Not Detected (Not Detect); Cannabinoid Screen Urine Not Detected (Not Detect); Cocaine Screen Urine Not Detected (Not Detect); Fentanyl, urine Not Detected (Not Detect); Methadone Screen, Urine Not Detected (Not Detect); Opiate Screen Urine Not Detected (Not Detect); Oxycodone Screen Urine Not Detected (Not Detect); Phencyclidine Screen Urine Not Detected (Not Detect)
[2025-01-11 22:26] VITALS: BP 161/77; PULSE 74; RESP 12; TEMP 36.6; O2SAT 99
--- NOTE | 2025-01-11 23:16 | ED.PSYCH ---
HPI - Psych General Chief Complaint: Psychiatric Symptoms Stated Complaint: ETOH and SI Time Seen by Provider: 01/11/25 21:41 Related Data Home Medications ?Medication ?Instructions ?Recorded ?Confirmed levothyroxine 88 mcg tablet 50 mcg PO DAILY@0600 03/22/24 01/12/25 ezetimibe 10 mg tablet 10 mg PO DAILY 01/12/25 01/12/25 lisinopril 5 mg tablet 5 mg PO DAILY 01/12/25 01/12/25 metoprolol tartrate 50 mg tablet 50 mg PO BID 01/12/25 01/12/25 rosuvastatin 10 mg tablet 10 mg PO DAILY 01/12/25 01/12/25 Previous Rx's ?Medication ?Instructions ?Recorded aspirin 81 mg chewable tablet 81 mg PO DAILY #30 tabs 12/07/23 multivitamin (Daily-Armida tablet) 1 tab PO DAILY #30 tabs 12/07/23 Allergies Allergy/AdvReac Type Severity Reaction Status Date / Time amoxicillin [AMOXICILLIN] Allergy Intermediate RASH Verified 01/11/25 18:08 atorvastatin Allergy Intermediate Rash Verified 01/11/25 18:08 doxycycline [DOXYCYCLINE] Allergy Intermediate NAUSEA Verified 01/11/25 18:08 /VOMITING penicillin V Allergy Intermediate facial Verified 01/11/25 18:08 edema Sulfa (Sulfonamide Allergy Intermediate Facial Verified 01/11/25 18:08 Antibiotics) Swelling sulfamethoxazole Allergy Intermediate Facial Verified 01/11/25 18:08 [From BACTRIM] Swelling trimethoprim [From BACTRIM] Allergy Intermediate Facial Verified 01/11/25 18:08 Swelling minocycline [Minocin] AdvReac Intermediate GI Verified 01/11/25 18:08 upset/nausea PMFSH Past Medical History Medical History Breast cancer Anemia Cardiomyopathy Depression CAD (coronary artery disease) Marijuana use Hypothyroidism Hyperlipidemia Hypertension Alcohol abuse Surgical History H/O: section Hx of bilateral mastectomy History of esophagogastroduodenoscopy (EGD) H/O colonoscopy S/P cardiac catheterization Social History Social History Household Members: Family Housing: House Are you a primary healthcare economics manager to a significant other at home: No Do you presently have visiting nurse or other home services: No Alcohol intake: current Alcohol intake frequency: 3 or more drinks per day Alcohol type: wine Comment: 5 min checks Patient Tobacco Use Status: Former Tobacco user Second Hand Smoke Exposure: No Use of substances other than those prescribed or required for medical reasons: No Substance Use Type: Marijuana Advance Directives: No Advance Directives Information Provided: No Do you have a plan to hurt others: No Plan service: Yes (The patient was in the [employer] for 4 years.) Sexual orientation: Straight/Heterosexual Physical Exam Vital Signs: Vital Signs: Last Vital Signs Temp 98 F 01/12/25 06:14 Pulse 74 01/12/25 06:14 Resp 18 01/12/25 06:14 BP 104/45 L 01/12/25 06:14 Pulse Ox 98 01/12/25 06:14 O2 Del Method Room Air 01/12/25 06:14 BMI result Body Mass Index 19.2 Course Reevaluation(s) Reevaluation #1: Time: 06:56 Date: 01/12/25 Provider: Dilan Becerril MD physician observation continued: Patient was been in the emergency department for 12 hours. Patient presented from home with intentional overdose with Lopressor, patient was drinking alcohol and did complain of suicidal ideation with a plan to overdose on medications. She denied homicidal ideation. Labs revealed a normocytic anemia which was chronic , elevated AST and ALT which were chronic , alcohol was elevated 410, urine tox screen was negative..Patient in physician observation for psychiatric evaluation.? No acute events reported overnight. patient was pending CARE team evaluation. Will continue to monitor. Time: 12:25 Date: 01/12/25 Provider: Dilan Becerril MD Physician observation ended at 12:25 hours. patient was re-evaluated by the care team. I obtained the following information from the care team clinician. The patient has depression but refuses to take antidepressants. The patient did have an admission last month to our psychiatric service and was here for 3 days. The patient continues to drink alcohol daily but states that she was motivated to stop drinking. She plans on attending AA meetings. She also states she has [facility] her [facility] use disorder. The patient is currently not suicidal and that has not interested in pursuing an inpatient detox program or inpatient treatment for her depression.Patient has been cleared for discharge by the CARE team. Will follow up as an outpatient. Medications Administered Generic Name Dose Route Start Last Admin Trade Name Selma PRN Reason Stop Dose Admin Aspirin 81 mg 01/12/25 10:00 01/12/25 10:52 Aspirin 81 Mg Tab.Chew PO 81 mg DAILY ARMOND Administration Ezetimibe 10 mg 01/12/25 10:00 01/12/25 10:23 Ezetimibe 10 Mg Tablet PO 10 mg DAILY ARMOND Administration Levothyroxine Sodium 50 mcg 01/12/25 10:00 01/12/25 10:23 Levothyroxine Sodium 50 Mcg Tablet PO 50 mcg DAILY@0600 ARMOND Administration Lisinopril 5 mg 01/12/25 10:00 01/12/25 10:23 Lisinopril 5 Mg Tablet PO 5 mg DAILY ARMOND Administration Protocol Metoprolol Tartrate 50 mg 01/12/25 10:00 01/12/25 10:23 Metoprolol Tartrate 50 Mg Tablet PO 50 mg BID ARMOND Administration Protocol Multivitamins/Vitamin C 1 tab 01/12/25 10:00 01/12/25 10:23 Multivitamin Tablet PO 1 tab DAILY ARMOND Administration Discontinued Medications Generic Name Dose Route Start Last Admin Trade Name Selma PRN Reason Stop Dose Admin Sodium Chloride 1,000 mls @ 999 mls/hr 01/11/25 23:30 01/12/25 01:59 Ns IV 01/12/25 00:30 Infused .Q1H1M ARMOND Infusion Thiamine HCl 400 mg/ Sodium 104 mls @ 208 mls/hr 01/11/25 23:20 01/11/25 23:41 Chloride IV 01/11/25 23:49 Not Given ONCE ONE Medical Decision Making Lab Data 01/11/25 19:54 01/11/25 19:54 Labs: Lab Results 01/11/25 01/11/25 Range/Units 19:54 21:57 WBC 8.6 (4.8-10.8) X10*3/uL RBC 3.10 L (4.20-5.50) X10*6/uL Hgb 10.1 L (12.0-16.0) g/dl Hct 28.9 L (37.0-47.0) % MCV 93.2 (80.0-98.0) fL MCH 32.6 (27.0-33.0) pg MCHC 34.9 (31.0-35.0) g/dl RDW 13.2 (11.0-16.0) % Plt Count 352 (160-400) X10*3/uL MPV 9.2 L (9.4-12.3) fL Immature Gran % (Auto) 0.6 H (0.0-0.4) % Neut % (Auto) 42.9 L (45-73) % Lymph % (Auto) 44.7 H (20-40) % [place] % (Auto) 6.9 (2-11) % Eos % (Auto) 3.6 (0-4) % Baso % (Auto) 1.3 (0-2) % Lymph # (Auto) 3.8 (1.2-4.9) X10*3/uL [place] # (Auto) 0.6 (0.1-1.2) X10*3/uL Eos # (Auto) 0.3 (0.0-0.4) X10*3/uL Baso # (Auto) 0.1 (0.0-0.2) X10*3/uL Abs Immat Gran (auto) 0.05 H (0.00-0.03) X10*3/uL Absolute Neuts (auto) 3.7 (2.0-8.3) x10*3/uL Absolute Nucleated RBC 0.000 (0.0-0.012) X10*3/uL Nucleated RBC % (auto) 0.0 (0.0-0.2) /100WBC Sodium 135 (135-145) mmol/L Potassium 4.6 (3.3-5.1) mmol/L Chloride 106 (96-108) mmol/L Carbon Dioxide 15 L (22-29) mmol/L Anion Gap 19 (12-20) BUN 12 (9-16) mg/dL Creatinine 0.96 (0.5-1.4) mg/dL Estim Creat Clear Calc 52.2 Estimated GFR 58 Random Glucose 86 (60-115) mg/dL Calcium 9.6 (8.4-10.2) mg/dL Total Bilirubin 0.2 (0.0-1.0) mg/dL AST 62 H (5-31) U/L ALT 42 H (0-31) U/L Alkaline Phosphatase 112 (39-117) U/L Total Protein 7.3 (6.5-8.0) g/dL Albumin 4.4 (3.5-5.0) g/dL Urine Opiates Screen Not Detected (Not Detect) Ur Buprenorphine Scrn Not Detected (Not Detect) ng/mL Ur Oxycodone Screen Not Detected (Not Detect) ng/mL Urine Methadone Screen Not Detected (Not Detect) ng/mL Urine Fentanyl Screen Not Detected (Not Detect) Ur Barbiturates Screen Not Detected (Not Detect) Ur Phencyclidine Scrn Not Detected (Not Detect) Ur Amphetamines Screen Not Detected (Not Detect) U Benzodiazepines Scrn Not Detected (Not Detect) Urine Cocaine Screen Not Detected (Not Detect) U Marijuana (THC) Screen Not Detected (Not Detect) Ethyl Alcohol 410 H* mg/dL Discharge Plan Discharge Clinical Impression: Depression with suicidal ideation, Alcohol use disorder, Acute alcohol intoxication Patient Disposition: Home, Self-Care Instructions: Abuse of Alcohol (DC) Additional Instructions: Alcohol use disorder You were seen in the Emergency Department today for treatment of alcohol use disorder.? the legal limit of intoxication for blood alcohol is 80. Your blood alcohol level was 400.' You were evaluated by our care team and at this time that has felt that you can be discharged home. You should consider attending AA meetings either in person or on zoom to try to get help with your alcohol use disorder. If you think you are going to hurt yourself or hurt anyone else you should call 911 and return to the emergency department and we can help you with these thoughts and feelings. If you would like to cut down or stop your alcohol use please consider calling our outpatient Addiction Treatment office:? [facility] (M-F 9a-5p) [address] [place] [address] ? You have also been given a list of treatment providers in the area that can assist as well.? If you experience seizures, vomiting blood, black stools, falls, severe headache, chest pain, fevers, trouble breathing, hallucinations or any other concerns you need to call 911 or seek immediate care. Please stay hydrated. Prescriptions: No Action metoprolol tartrate 50 mg tablet 50 mg PO BID lisinopril 5 mg tablet 5 mg PO DAILY ezetimibe 10 mg tablet 10 mg PO DAILY rosuvastatin 10 mg tablet 10 mg PO DAILY multivitamin [Daily-Armida] Tablet 1 tab PO DAILY Qty: 30 0RF aspirin 81 mg Tablet,Chewable 81 mg PO DAILY Qty: 30 0RF levothyroxine 88 mcg tablet 50 mcg PO DAILY@0600 Interventions: [place]-Suicide Risk Severity Scale Last Done: 01/11/25 18:15 Print Language: French
[2025-01-11] MEDS: 0.9 % Sodium Chloride 1,000 ML 999 ML IV (23:41)
--- NOTE | 2025-01-11 23:45 | PC.NURSE ---
Took over from HELENE Timmons, Medicated per nov.
--- NOTE | 2025-01-12 01:59 | PC.NURSE ---
provider into discuss plan of care.
[2025-01-12 02:58] VITALS: RESP 16
--- NOTE | 2025-01-12 04:26 | PC.NURSE ---
pt sleeping at this time, no sign of distress
[2025-01-12 04:44] VITALS: BP 114/60; PULSE 83; RESP 16; TEMP 36.8; O2SAT 98
[2025-01-12 06:14] VITALS: BP 104/45; PULSE 74; RESP 18; TEMP 36.6; O2SAT 98
[2025-01-12] MEDS: Ezetimibe 10 MG TABLET PO (10:23)
[2025-01-12] MEDS: Multivitamin TABLET 1 TAB PO (10:23)
[2025-01-12] MEDS: Levothyroxine Sodium 50 MCG TABLET PO (10:23)
[2025-01-12] MEDS: Metoprolol Tartrate 50 MG TABLET PO (10:23)
[2025-01-12] MEDS: lisinopriL 5 MG TABLET PO (10:23)
[2025-01-12] MEDS: Aspirin 81 MG TAB.CHEW PO (10:52)
[2025-01-12 12:50] VITALS: BP 104/45; PULSE 74; RESP 18; TEMP 36.6; O2SAT 98
--- NOTE | 2025-01-12 16:21 | MHC.CARE ---
RAD Team faxed PHP referral for this pt. Will follow up tomorrow
== END 2025-01-12 12:52 | disposition home or self-care (01) ==
PROVIDERS: Emergency Provider Emergency Medicine; Referring Provider Internal Medicine
DX: F33.1 Major depressive disorder, recurrent, moderate (principal); R45.851 Suicidal ideations; Y90.8 Blood alcohol level of 240 mg/100 ml or more; R94.31 Abnormal electrocardiogram [ECG] [EKG]; R11.0 Nausea; F10.129 Alcohol abuse with intoxication, unspecified; Z51.81 Encounter for therapeutic drug level monitoring; Z79.899 Other long term (current) drug therapy
CPT/HCPCS: 36415; 80053; 80307; 85025; 93005; 96360; 96361; 99285; S9485

== ENCOUNTER → 2025-01-11 19:40 | Outpatient (BNV) | payer OTHER, SELFPAY | PROVIDERS: Emergency Provider Emergency Medicine; Visit Provider Internal Medicine | DX: I25.2 Old myocardial infarction (principal) | CPT/HCPCS: 93010 ==

== ENCOUNTER 2025-06-07 10:26 | Outpatient (AMB) | payer MEDICARE, SELFPAY ==
--- OUTSIDE RECORDS SUMMARY | 2025-01-04 06:30 | XMS_ITS ---
Author Organization [facility] Address [address] [place] [address] Care Team Providers Care Television Schedule Coordinator Name Role Phone Alec COLEMAN, Shazia Primary Care Provider Unavail able Emerson Norris Unavailable [phone] REASON FOR VISIT gerd,screening,hx polyps,anemia Encounters Encounter Location Date Provider Diagnosis [facility] [address], [place] [id number] 01/04/2025 Emerson Norris Colon cancer scree ned Z12.11 ; Personal history of colonic polyps Z86.0100 ; Diverticulosis of large intestine without perforation or abscess without bleeding K57.30 ; Other hemorrhoids K64.8 ; Gastro-esophageal reflux disease without esophagitis K21.9 and Hiatal hernia K44.9 Assessments Encounter Date Diagnosis (ICD Code) Assessment Notes Treatment Notes Treatment Clinical Notes Section Notes 01/04/2025 Colon cancer screening (ICD-10 - Z12.11) 01/04/2025 Personal history of colonic polyps (ICD-10 - Z86.0100) 01/04/2025 Diverticulosis of large intestine without perforation or abscess without bleeding (ICD-10 - K57.30) 01/04/2025 Other hemorrhoids (ICD-10 - K64.8) 01/04/2025 Gastro-esophageal reflux disease without esophagitis (ICD-10 - K21.9) 01/04/2025 Hiatal hernia (ICD-10 - K44.9) Plan Of Treatment No Information Progress Notes * JACOBY MAXWELLDOB: [birth year] (65 yo F)Acc No.[id number]:01/04/2025 EGD and COL/MAC Patient: VELVET MAJANORICIA Provider: Luanne Norris MD :1960 A ge:64 Y S ex:Female Date:01/04/2025 Address:[address] [id number] Pcp:Shazia Michael NP Subjective: * Chief Complaints: * 1 . Gerd,screening,hx polyps,anemia. * Medical History: Objective: * Vitals: Assessment: * Assessment: 1. C olon cancer screening - Z12.11 (Primary) 2 . P ersonal history of colonic polyps - Z86.0100 3 . D iverticulosis of large intestine without perforation or abscess without bleeding - K57.30 4 . O ther hemorrhoids - K64.8 5. G alexsandra-esophageal reflux disease without esophagitis - K21.9 6 . H iatal hernia - K44.9 Plan: * Treatment: * Procedure Codes: 4 5378 DIAGNOSTIC COLONOSCOPY, Modifiers: 33 , 54060 UPPER GI ENDOSCOPY, BIOPSY * * The named appointment provid er may or may not be the originator of this progress note, and it is not deemed complete until electronically signed by the appointment provider. Sign off status: Pending * Provider: Luanne Norris MD Date: 0 01/04/2025 Generated for Margaret diaz/Annemarie/Christophesmitting on: 1 12:00 PM EDT
--- OUTSIDE RECORDS SUMMARY | 2025-01-07 18:34 | XMS_ITS ---
Author Organization [facility] Address [address] [place] [address] Care Team Providers Care Functional Director Name Role Phone Alec COLEMAN, Shazia Primary Care Provider Unavail able Emerson Norris Unavailable [phone] REASON FOR VISIT Needs labs for anemia Encounters Encounter Location Date Provider Diagnosis [facility] [address] [place] [address] 01/07/2025 Emerson Norris Plan Of Treatment No Information Progress Notes * JACOBY MAXWELLDOB: 8 (65 yo F)Acc No.[id number]:01/07/2025 Patient: JACOBY MAJANO :1960 A ge:64 Y S ex:Female [facility] [place], [address] Subjective: * Chief Complaints: * N eeds labs for anemia * Medical History: * Surgical History: * Hospitalization/Major Diagno stic Procedure: * Medications: Objective: * Vitals: * Physical Examination: Assessment: Plan: * Treatment: * Procedure Codes: * * Date:
--- OUTSIDE RECORDS SUMMARY | 2025-05-16 06:50 | XMS_ITS ---
Author Organization [facility] Address [address] [place], [place] [address], [place] [address] Care Team Providers Care Quality Tech Name Role Phone Alec MILITARY POLICE OFFICER, Shazia Primary Care Provider Unavail Emerson Goyal [phone] REASON FOR VISIT Patient presents today for anemia Encounters Encounter Location Date Provider Diagnosis [facility] [address] [place], [place] [address] [address] 05/16/2025 Emerson Norris Plan Of Treatment No Information Progress Notes * JACOBY MAXWELLDOB: (65 yo F)Acc No.[id number]:05/16/2025 Progress Notes Patient: JACOBY MAJANO Provider: Luanne Norris MD :1960 A ge:64 Y S ex:Female Date:05/16/2025 [facility] Pcp:Shazia Michael NP Subjective: * Chief Complaints: * 1 . Patient presents today for anemia. * Medical History: Objective: * Vitals: Assessment: Plan: * Treatment: * * The named appointment provid er may or may not be the originator of this progress note, and it is not deemed complete until electronically signed by the appointment provider. Sign off status: Pending * Provider: Luanne Norris MD Date: 0 05/16/2025 Generated for Margaret diaz/Annemarie/eTransmitting on: 1 12:01 PM EDT
[2025-06-07 10:53] VITALS: BP 128/62; PULSE 65; BMI 18.6
--- NOTE | 2025-06-07 10:53 | A.OFFVIS_ITS ---
Vital Signs 06/07/25 10:53 Height 5 ft 8 in Weight 122 lb 2.177 oz BMI 18.6 BP 128/62 Blood Pressure Location Lt brachial Position Sitting Pulse 65 Pulse Source Pulse Oximeter Intake Visit Reasons: 6m follow up Nanotechnology Engineering Technician Required: No Accompanied by: Self / Same As Patient Allergies amoxicillin (AMOXICILLIN) Allergy (Intermediate, Verified 06/07/25 10:58) RASH atorvastatin Allergy (Intermediate, Verified 06/07/25 10:58) Rash doxycycline (DOXYCYCLINE) Allergy (Intermediate, Verified 06/07/25 10:58) NAUSEA /VOMITING penicillin V Allergy (Intermediate, Verified 06/07/25 10:58) facial edema Sulfa (Sulfonamide Antibiotics) Allergy (Intermediate, Verified 06/07/25 10:58) Facial Swelling sulfamethoxazole (From BACTRIM) Allergy (Intermediate, Verified 06/07/25 10:58) Facial Swelling trimethoprim (From BACTRIM) Allergy (Intermediate, Verified 06/07/25 10:58) Facial Swelling minocycline (Minocin) Adverse Reaction (Intermediate, Verified 06/07/25 10:58) GI upset/nausea Medication List - Last Reconciled 06/07/25 by Giuseppe Parker MD aspirin 81 mg PO DAILY esomeprazole magnesium 20 mg PO DAILY ezetimibe 10 mg PO DAILY levothyroxine 50 mcg PO DAILY@0600 lisinopril 5 mg PO DAILY metoprolol tartrate 50 mg PO BID multivitamin (Daily-Armida tablet) 1 tab PO DAILY rosuvastatin 10 mg PO DAILY HPI Comments Details: 65-year-old female who is here for follow-up. She has background history of chronic anemia and presented to us in 11/25/2023 with NSTEMI on background of chronic alcoholism. Echocardiography was concerning for takotsubo cardiomyopathy but when she was taken for cardiac catheterization we noticed mid LAD plaque rupture which was treated with drug-eluting stent. Subsequently she had echocardiography which showed normal LVEF. She has been doing well. She is anemic and is being seen by Gastroenterology. She said she noticed her blood pressure to be low and she decrease the lisinopril from 20 mg to 10 mg. Blood pressure appears to be low today also. No other complaints currently. 11/30/2024: She is here for follow-up. She has been doing well. No chest pain or shortness breath. She is undergoing GI workup and we will wean in doing colonoscopy at end of December. She is asking can Brilinta be stopped before the colonoscopy. 06/07/2025: Here for follow-up. No chest discomfort shortness of breath. She is on aspirin monotherapy at this point. She had colonoscopy done where polyps were removed. PFSH Medical History Breast cancer Anemia Cardiomyopathy Depression CAD (coronary artery disease) Marijuana use Hypothyroidism Hyperlipidemia Hypertension Alcohol abuse Surgical History H/O: section Hx of bilateral mastectomy History of esophagogastroduodenoscopy (EGD) H/O colonoscopy S/P cardiac catheterization Social History Household Members: Family Housing: House Are you a primary healthcare social worker to a significant other at home: No Do you presently have visiting nurse or other home services: No Alcohol intake: current Alcohol intake frequency: 3 or more drinks per day Alcohol type: wine Comment: 5 min checks Patient Tobacco Use Status: Former Tobacco user Second Hand Smoke Exposure: No Substance Use Type: Marijuana service: Yes (The patient was in the [employer] for 4 years.) Sexual orientation: Straight/Heterosexual Review of Systems Const Denies daytime sleepiness, Denies difficulty sleeping, Denies snoring, Denies st ops breathing during sleep and Denies weakness Card Denies chest pain, Denies rapid heart rate, Denies irregular heart rhythm, Denies claudication, Denies leg edema, Denies lightheadedness, Denies palpitations, Denies dyspnea, Denies dyspnea on exertion, Denies orthopnea, Denies paroxysmal nocturnal dyspnea and Denies slow heart rate Resp Denies cough, Denies dyspnea, Denies dyspnea on exertion and Denies snoring GI Reports no additional complaints, Denies hematochezia, Denies change in stool character and Denies dyspepsia Musc Denies abnormal gait, Denies muscle weakness and Denies numbness Neuro Denies abnormal gait, Denies numbness and Denies weakness Endo Denies palpitations Physical Exam Vital Signs: Last Vital Signs Pulse 65 06/07/25 10:53 BP 128/62 06/07/25 10:53 BMI result Body Mass Index 18.6 GENERAL APPEARANCE: in no acute distress, pleasant. NECK: no carotid bruit, no jugular venous distention. SKIN: no suspicious lesions, warm and dry. HEART: no murmurs, regular rate and rhythm. LUNGS: clear to auscultation bilaterally. ABDOMEN: soft, nontender. EXTREMITIES: no edema. PERIPHERAL PULSES: equal. NEUROLOGIC: No gross deficits, AAO X 3 Office Procedures EKG Details: Sinus rhythm 61 beats per minute, moderate left ventricular hypertrophy, QTC 440 milliseconds. [id number], Complete Assessment & Plan Assessment & Plan (1) Hypertension: Code(s): I10 - Essential (primary) hypertension Category: Medical (2) Stable angina: Code(s): I20.89 - Other forms of angina pectoris Category: Medical Plan Pleasant 65 year female who is here for follow-up. Background history of LAD PCI. She is currently on aspirin only and Brilinta has been stopped. Taking medications regularly. Blood pressure well controlled. Stable from cardiovascular point of view. She will follow up with us in 1 year. Thank you for allowing me to participate in the care of your patient. Please feel free to contact me if you have any questions. Coding Level of Care Code Est Pt Level 4 (40063) Diagnoses Hypertension I10 Stable angina I20.89 CPT Codes EKG - CPT: 58033-[id number], Complete ([id number])
--- OUTSIDE RECORDS SUMMARY | 2025-06-07 12:01 | XMS_ITS | Patient Health Record ---
Author Organization [facility] Address [address] [place] [phone] Care Team Providers Care Parts Runner Name Role Phone Alec PODIATRIC MEDICINE DOCTOR, Shazia Primary Care Provider Unavail able Emerson Swift Unavailable [phone] Allergies Allergen (clinical drug ingredient) Drug/Non Drug Allergy documented on EMR Reaction Allergy Type Onset Date Status Penicillin Unknown Drug Allergy Active atorvastatin Atorvastatin Unknown Drug Allergy A ctive sulfamethoxazole / trimethoprim Bactrim Unknown Drug Allergy Active Results Component Value Reference Range Notes Pathology Reviewed date:04/18/2025 11:58:48 PM Interpretation: Performing Lab:[facility], [address] [place] [id number] Notes/Report: Reason For Referral Referring Provider First Name Fawn Referring Provider Last Name Scott Referred Organization [facility] Referred Provider Emerson Swift Referred Address [address] [place] [address], [address],[place], [place],[address],[place] Referred Provider Specialty Gastroentero logy Referral Priority Routine Referring Provider First Name Shazia Referring Provider Last Name Alec Referred Organization [facility] Referred Provider Emerson Swift Referred Address [address] [place] [address],[address],[place], [place],[address],[place] Referred Provider Specialty Gastroentero logy General Notes Carla Ramirez 2024 01:14:23 PM >[facility] FOR [facility]ON AND EGD WITH DR SWIFT ON 01-04-25 Referral Priority Routine Referring Provider First Name Nithya Referring Provider Last Name Bernice Referred Organization [facility] Referred Provider Emerson Swift Referred Address [address] [place] [address], [address],[place], [place],[address],[place] Referred Provider Specialty Gastroentero logy Referral Priority Routine Medications Medication SIG (Take, [...] Status Risk Notes Problem Colon cancer screening (695874871) Colon cancer screening (Z12.11) Active confirmed Problem History of polyp of colon (situation) (251417738) Personal history of colonic polyps (Z86.010) Active confirmed Problem Nausea (641557609) Nausea (R11.0) Active confirmed Problem Early satiety (791401788) Early satiety (R68.81) Active confirmed Problem Anemia (094313871) Anemia (D64.9) Active confirmed Problem Gastroesophageal reflux disease (disorder) (613838882) Chronic GERD (K21.9) Active confirmed Vital Signs Temperature 97.7 degrees Fahrenheit 09/30/2024 Blood pressure diastolic 00 mm Hg 09/30/2024 Height 5 ft in 09/30/2024 Blood pressure systolic 000 mm Hg 09/30/2024 Weight 122 lb 6 oz lbs 09/30/2024 BMI 23.90 kg/m2 09/30/2024 Encounters Encounter Location Date Provider Diagnosis [facility] [address] [place] [phone] 01/04/2025 Emerson Swift Colon cancer screeni ng Z12.11 ; Personal history of colonic polyps Z86.0100 ; Diverticulosis of large intestine without perforation or abscess without bleeding K57.30 ; Other hemorrhoids K64.8 ; Gastro-esophageal reflux disease without esophagitis K21.9 and Hiatal hernia K44.9 [facility] [address] [place] [phone] 09/30/2024 Emerson Swift Anemia D64.9 ; Perso nal history of colonic polyps Z86.010 ; Colon cancer screening Z12.11 ; Chronic GERD K21.9 ; Early satiety R68.81 and Nausea R11.0 [facility] [address] [place] [phone] 01/07/2025 Emerson Swift [facility] [address] [place] [phone] 09/30/2024 Emerson Swift [facility] [address] [place] [phone] 01/09/2025 Emerson Swift [facility] [address] [place] [phone] 04/17/2025 Emerson Swift Assessments Encounter Date Diagnosis (ICD Code) Assessment Notes Treatment Notes Treatment Clinical Notes Section Notes 01/04/2025 Colon cancer screening (ICD-10 - Z12.11) 01/04/2025 Personal history of colonic polyps (ICD-10 - Z86.0100) 09/30/2024 Personal history of colonic polyps (ICD-10 [...] as she describes an appointment with her neon glass bender in November which would allow us to obtain a clearance note from him for the procedure. Also, that'll be over one year since the placement of her coronary artery stent and that should allow us to be able stop her blood thinner for a couple of days before the procedure as long as her neon glass bender does not have any objections to that. [...] as she describes an appointment with her neon glass bender in November which would allow us to obtain a clearance note from him for the procedure. Also, that'll be over one year since the placement of her coronary artery stent and that should allow us to be able stop her blood thinner for a couple of days before the procedure as long as her neon glass bender does not have any objections to that. [...] to keep you advised of her progress. 01/04/2025 Diverticulosis of large intestine without perforation or abscess without bleeding (ICD-10 - K57.30) 09/30/2024 Colon cancer screening (ICD-10 - Z12.11) [...] as she describes an appointment with her neon glass bender in November which would allow us to obtain a clearance note from him for the procedure. Also, that'll be over one year since the placement of her coronary artery stent and that should allow us to be able stop her blood thinner for a couple of days before the procedure as long as her neon glass bender does not have any objections to that. [...] to keep you advised of her progress. 01/04/2025 Other hemorrhoids (ICD-10 - K64.8) 09/30/2024 Chronic GERD (ICD-10 - K21.9) Overall, [...] as she describes an appointment with her neon glass bender in November which would allow us to obtain a clearance note from him for the procedure. Also, that'll be over one year since the placement of her coronary artery stent and that should allow us to be able stop her blood thinner for a couple of days before the procedure as long as her neon glass bender does not have any objections to that. [...] to keep you advised of her progress. 01/04/2025 Gastro-esophageal reflux disease without esophagitis (ICD-10 - K21.9) 09/30/2024 Early satiety (ICD-10 - R68.81) Overall, [...] as she describes an appointment with her neon glass bender in November which would allow us to obtain a clearance note from him for the procedure. Also, that'll be over one year since the placement of her coronary artery stent and that should allow us to be able stop her blood thinner for a couple of days before the procedure as long as her neon glass bender does not have any objections to that. [...] to keep you advised of her progress. 01/04/2025 Hiatal hernia (ICD-10 - K44.9) 09/30/2024 Nausea (ICD-10 - R11.0) Overall, Lore [...] as she describes an appointment with her neon glass bender in November which would allow us to obtain a clearance note from him for the procedure. Also, that'll be over one year since the placement of her coronary artery stent and that should allow us to be able stop her blood thinner for a couple of days before the procedure as long as her neon glass bender does not have any objections to that. [...] Date UPPER GI ENDOSCOPY 09/30/2024 COLONOSCOPY 09/30/2024 Insurance Providers Payer Name Payer Address Payer Phone Subscriber Number Group Number Insured Name Patient Relationship to Insured Coverage Start Date Coverage End Date [facility] [employer] [address] [place] [address] [id number] HANS LORE Self - patient is the insured Medical (General) History Medical History History ICD Code Hypertension [place] in November 2023 with a sten t placed in [place]-Dr. Parker--started on 81 mg aspirin and Brilinta Denies DM,CVA,Lung disease,renal disease Hyperlipidemia Breast cancer Colonoscopy age 48 [address] neg with [address] Yvette riddle at [facility] Colonoscopy 2018 with a single tubular [...]
--- OUTSIDE RECORDS SUMMARY | 2025-06-07 12:01 | XMS_ITS | Clinical Summary ---
Author Organization [facility] Address [address] [facility] [place], [place] [id number] Phone Care Team Providers Care Switch Inspector Name Role Phone Unavailable Primary Care Provider Unavailabl e Allergies Active Allergy Reactions Criticality Noted Date Comments Amoxicillin 04/29/2025 Atorvastatin 04/29/2025 Sulfamethoxazole-Trimethoprim 2024 Minocycline 04/29/2025 Encounters Date Type Department Care Team Description 04/29/2025 7:35 PM EDT - 04/29/2025 7:46 PM EDT Emergency [facility] [address] [place] [address] Discharge Disposition: Left Without Being Seen from Last 3 Months Social History Tobacco Use Types Packs/Day Years Used Date Smoking Tobacco: Never Assessed Education Answer Date Recorded Are you interested in more education? Not on alvaro e 04/29/2025 Are you concerned about learning? Not on file 04/29/2025 No 04/29/2025 No 04/29/2025 Digital Access Answer Date Recorded No 04/29/2025 No 04/29/2025 Reliable internet access at home? Not on file 04/29/2025 Device with a working camera? Not on file Intimate Partner Violence Answer Date R ecorded Are you denied basic needs s uch as food, clothing, or medical care? No 04/29/2025 In the past 12 months have y ou been in a relationship with a person who hurts, threatens, or tries to control you? No 04/29/2025 Are you denied basic needs s uch as food, clothing, or medical care? No 04/29/2025 In the past 12 months have y ou been in a relationship with a person who hurts, threatens, or tries to control you? No 04/29/2025 Comments Unknown Sex and Gender Information Value Date Recorded Sex Assigned at Female 04/29/2025 1:37 PM EDT Legal Sex Female 1:05 PM EDT Gender Identity Female 04/29/2025 1:37 PM EDT Sexual Orientation Not on file Last Filed Vital Signs Vital Sign Reading Time Taken Comments Blood Pressure 188/98 04/29/2025 1:36 PM EDT Pulse 86 04/29/2025 1:36 PM EDT Temperature 36.8 C (98.2 F) 04/29/2025 1:36 PM EDT Respiratory Rate 16 04/29/2025 1:36 PM EDT Oxygen Saturation 100% 04/29/2025 1:36 PM EDT Inhaled Oxygen Concentration - - Weight 56.7 kg (125 lb) 04/29/2025 1:36 PM EDT Height 152.4 cm (5') 04/29/2025 1:36 PM EDT Body Mass Index 24.41 04/29/2025 1:36 PM EDT Plan of Treatment Not on file Medical Devices Not on file Additional Source Comments The information contained in this document represents components of the legal health record. It is not the complete legal health record.[facility]
== END 2025-06-07 11:26 | disposition home or self-care (01) ==
PROVIDERS: PCP General Practice; Visit Provider Internal Medicine Cardiovascular Disease
DX: I10 Essential (primary) hypertension (principal); I20.89 Other forms of angina pectoris
CPT/HCPCS: 93010; 99214

== ENCOUNTER → 2025-06-07 10:26 | Outpatient (BNVA) | payer MEDICARE, SELFPAY | PROVIDERS: PCP Internal Medicine; Visit Provider Internal Medicine Cardiovascular Disease | DX: I10 Essential (primary) hypertension (principal); I20.89 Other forms of angina pectoris; D64.9 Anemia, unspecified; F10.20 Alcohol dependence, uncomplicated | CPT/HCPCS: 93005; 99212 ==